=== PATIENT | female | born 1955 | race Hispanic/Latino ===

== ENCOUNTER 2019-04-27 21:16 | Inpatient (IN) | payer MEDICARE ==
[~2019-04-27 21:16] MED LIST: Iopamidol-370 76% 500 ML 1 ML ONE
[2019-04-27] MEDS ORDERED: Rocuronium Bromide 10 MG/ML (10ML VIAL) ONE (21:20)
--- NOTE | 2019-04-27 21:41 | RAD ---
Chest one view HISTORY: Chest pain. FINDINGS: No comparison. Cardiac silhouette is magnified and partially secured by dense bilateral inf iltrates. Pulmonary vasculature is engorged. Patient is slightly rotated rightward. Tip of an endotracheal catheter overlies the thoracic inlet. Nasogastric tube descends to the stomach . No evidence of pneumothorax. IMPRESSION: Endotracheal catheter is in good radiographic position. Pulmonary edema. Atherosclerosis.
[2019-04-27 21:56] LABS: Base Excess-Venous -5.1 mmol/L (-2.0 to 3.0); CO2 Tension (PvCO2) 63.5 mmHg (40.0-50.0); Calcium, Ionized 0.88 mmol/L (See Comments:); Chloride 95 mmol/L (98-107); Hemoglobin - Calc 11.9 g/dL (12.0-16.0); Potassium 4.6 mmol/L (3.5-5.1); Sodium 133 mmol/L (138-145); T. Carbon Dioxide 25.9 mmol/L (22.0-28.0); vO2 Saturation-calc 97.4 % (60.0-85.0)
[2019-04-27] MEDS ORDERED: Furosemide 40 MG/4 ML VIAL ONE (22:05)
[2019-04-27 22:06] LABS: Actual Bicarbonate (HCO3a) 22.1 mEq/L (22-28); Analyzer IN Cardio ER; CO2 Tension 39.9 mmHg (35.0-45.0); Calcium, Ionized 0.99 mmol/L (1.12-1.30); Carboxyhemoglobin (COHb) 0.3 gm% (0.0-3.0); O2 Tension (PaO2) 86.1 mmHg (> 80.0); Potassium - ABG Lab 3.94 mmol/L (3.70-5.30); pH, Arterial 7.36 (7.35-7.45)
--- NOTE | 2019-04-27 22:08 | CT ---
CT arteriogram chest with IV contrast and 3-D imaging HISTORY: Dyspnea. FINDINGS: There is suboptimal opacification of the pulmonary arteries. No central filling defects dolly dent. No secondary findings of significant pulmonary embolus. Prominent calcification in the arterial structures. The left common carotid artery is very small and not definitely opacified. 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 There is compensatory enlargement of the right carotid artery. Endotracheal catheter and nasogastric tube are in place. Small amount of bilateral pleural fluid. Consolidation at the lung bases, greater on the right than the left. Patchy areas of parenchymal infi ltrate throughout each lobe. Retraction, scarring, and dystrophic calcification in the left upper lobe. Reactive appearing lymph nodes throughout the mediastinum. No evidence of pneumothorax. IMPRESSION: No CT evidence of pulmonary embolus. Multifocal infiltrates involving primarily the lower lobes. Component of acute inflammation/infection is a possibility. Consider multifocal pneumonia. In addition, there is evidence of chronic recurrent inflammatory processes of the lungs, including sc arring and calcification of the left upper lobe. Small amount of bilateral pleural fluid. Atherosclerosis.
[2019-04-27 22:09] LABS: ALT (SGPT) 8 U/L (8-55); AST (SGOT) 20 U/L (5-34); Albumin 3.9 g/dL (3.4-4.8); Alkaline Phosphatase 80 U/L (40-110); Anion Gap 18 mmol/L (10-20); BUN (Urea Nitrogen) 16 mg/dL (9.8-20.1); Bilirubin, Total 0.4 mg/dL (0.2-1.2); CK (CPK) 91 U/L (29-168); Calc. Creatinine Clearance 0 mL/min (70-130); Calcium 7.4 mg/dL (7.8-10.44); Carbon Dioxide 24 mmol/L (23-31); Chloride 96 mmol/L (98-107); Estimated GFR-MDRD 34; Globulin 3.4 g/dL (2.4-3.5); Glucose 333 mg/dL (80-115); Potassium 4.4 mmol/L (3.5-5.1); Protein, Total 7.3 g/dL (6.0-8.3); Sodium 134 mmol/L (136-145)
[2019-04-27 22:09] LABS: Bacteria/HPF None Seen HPF (None Seen); Bilirubin Negative (Negative); Blood, Urine Trace (Negative); Clarity Turbid (Clear); Glucose, Urine (Dipstick) Normal (Negative); Leukocyte Negative Leu/uL (Negative); Nitrite Negative (Negative); Protein, Urine (Dipstick) 30 mg/dL (Neg-Trace); RBC/HPF 0-3 HPF (0-3); Squamous Epithelial 0-3 HPF (0-3); Urobilinogen Normal mg/dL (Less than 2); WBC/HPF 0-3 HPF (0-3)
[2019-04-27 22:10] LABS: ALV-art Gradient 291.825 (0-20); Puncture Site LRA
[2019-04-27] MEDS ORDERED: Propofol 1,000 MG/100 ML VIAL IV ONE (22:11)
[2019-04-27 22:25] LABS: Band 6 % (5-11); Eosinophils 3 % (0-10); Hemoglobin 10.6 g/dL (12.0-16.0); Lymphocytes 37 % (21-51); MDiff Complete? YES; Mean Corpuscular HGB CONC 33.3 g/dL (32.0-36.0); Mean Corpuscular Hemoglobin 30.9 pg (27.0-31.0); Mean Corpuscular Volume 92.9 fL (78.0-98.0); Mean Platelet Volume 8.2 fL (7.4-10.4); Monocytes 9 % (0-10); Neutrophil 45 % (42-75); Platelet Count 322 thou/uL (130-400); RBC Distribution Width 11.3 % (11.5-14.5); Red Blood Cell (RBC) Count 3.42 mill/uL (4.20-5.40); White Blood Cell (WBC) Count 16.7 thou/uL (4.8-10.8)
[2019-04-27 22:31] LABS: CKMB 0.8 ng/mL (0-6.6)
[2019-04-27] MEDS ORDERED: Piperacillin/Tazobactam 4.5 GM VIAL ONE (23:36)
[2019-04-28] MEDS ORDERED: Acetaminophen 325 MG TAB PO PRN (00:15)
[2019-04-28] MEDS ORDERED: HYDROcodone/Acetaminophen 5/325 mg Tablet PO PRN (00:15)
[2019-04-28] MEDS ORDERED: Bisacodyl 10 MG SUPP PR PRN (00:15)
[2019-04-28] MEDS ORDERED: Ondansetron PF 4 MG/2 ML Vial IVP PRN ×2 (00:15→00:31)
[2019-04-28] MEDS ORDERED: Bisacodyl 5 MG TAB PO PRN (00:15)
[2019-04-28] MEDS ORDERED: Morphine 2 MG/ML SYRINGE SLOW IVP PRN (00:31)
[2019-04-28] MEDS ORDERED: hydrALAZINE 20 MG/ML VIAL SLOW IVP PRN (00:31)
--- NOTE | 2019-04-28 00:33 | PDOC.HHP ---
Hospitalist HPI - History of Present Illness Altered mental status History of Present Illness: Patient is a 64 year old female with PMH diastolic CHF who presented to ED for AMS, cough, shortness of breath. She continued to become more lethargic to the point of being unresponsive in ED and was intubated for airway protection. Family at bedside, history comes from them and chart review. Patient was reportedly doing well until today, when she developed a cough and shortness of breath during shower. Per family she had been compliant with medications at home , and did not complain of anything until today. They found her on cough later diaphoretic and short of breath and went to ED. In ambulance, developed cyanosis and was not moving air well, improved initally with bag mask before needing to be intubated. Reportedly had similar issue earlier this month and required intubation then as well, this was not at this facility. In ED, CTA performed with no PE but with signs of multifocal pneumonia as well as chronic scarring process in lungs as well. Only reported PMH is HLD and DM. EKG in ED without acute ST findings but with prolongued QTc of 513. I discussed with Dr Dueñas who will follow with us in AM. Hospitalist ROS - Review of Systems ROS unobtainable: due to endotracheal tube Hospitalist History - Past Medical History Other Medical History: HLD DM - Past Surgical History Other Surgical History: unable to obtain due to intubated status - Family History Other Family History: unable to obtain due to intubated status - Social History Other Social History: unable to obtain due to intubated status - Exam General - other findings: intubated sedated Eye: PERRL ENT: normocephalic atraumatic, moist mucosa Neck: supple, no JVD Heart: RRR, no murmur, no gallops, no rubs Respiratory: CTAB Respiratory - other findings: prolongued exp phase Gastrointestinal: soft, non-tender, non-distended, normal bowel sounds Extremities: no cyanosis, no clubbing, no edema Skin: no lesions, no rashes Neurological - other findings: sedated unable to evaluate rass -2 Psychiatric - other findings: unable to eval Hospitalist Results - Labs Result Diagrams: 04/28/19 03:32 04/28/19 03:32 Lab results: WBC 16.7 thou/uL (4.8-10.8) H 04/27/19 21:32 Hgb 10.6 g/dL (12.0-16.0) L 04/27/19 21:32 Hct 31.8 % (36.0-47.0) L 04/27/19 21:32 MCV 92.9 fL (78.0-98.0) 04/27/19 21:32 Plt Count 322 thou/uL (130-400) 04/27/19 21:32 Band Neuts % (Manual) 6 % (5-11) 04/27/19 21:32 ABG pH 7.36 (7.35-7.45) 04/27/19 21:56 ABG pCO2 39.9 mmHg (35.0-45.0) 04/27/19 21:56 ABG pO2 86.1 mmHg (> 80.0) H 04/27/19 21:56 VBG pCO2 63.5 mmHg (40.0-50.0) H* 04/27/19 21:39 VBG pO2 120.8 mmHg (35.0-45.0) H 04/27/19 21:39 Sodium 134 mmol/L (136-145) L 04/27/19 21:32 Potassium 4.4 mmol/L (3.5-5.1) 04/27/19 21:32 Chloride 96 mmol/L (98-107) L 04/27/19 21:32 Carbon Dioxide 24 mmol/L (23-31) 04/27/19 21:32 BUN 16 mg/dL (9.8-20.1) 04/27/19 21:32 Creatinine 1.52 mg/dL (0.6-1.1) H 04/27/19 21:32 Glucose 333 mg/dL (80-115) H 04/27/19 21:32 Lactic Acid 2.6 mmol/L (0.5-2.2) H 04/27/19 22:50 Calcium 7.4 mg/dL (7.8-10.44) L 04/27/19 21:32 Total Bilirubin 0.4 mg/dL (0.2-1.2) 04/27/19 21:32 AST 20 U/L (5-34) 04/27/19 21:32 ALT 8 U/L (8-55) 04/27/19 21:32 Alkaline Phosphatase 80 U/L (40-110) 04/27/19 21:32 Creatine Kinase 91 U/L (29-168) 04/27/19 21:32 CK-MB (CK-2) 0.8 ng/mL (0-6.6) 04/27/19 21:32 Troponin I 0.114 ng/mL (< 0.028) H 04/27/19 21:32 B-Natriuretic Peptide 643.1 pg/mL (0-100) H 04/27/19 21:32 Serum Total Protein 7.3 g/dL (6.0-8.3) 04/27/19 21:32 Albumin 3.9 g/dL (3.4-4.8) 04/27/19 21:32 Urine Ketones Negative mg/dL (Negative) 04/27/19 21:37 Urine Blood Trace (Negative) A 04/27/19 21:37 Urine Nitrite Negative (Negative) 04/27/19 21:37 Ur Leukocyte Esterase Negative Waqar/uL (Negative) 04/27/19 21:37 Urine RBC 0-3 HPF (0-3) 04/27/19 21:37 Urine WBC 0-3 HPF (0-3) 04/27/19 21:37 Ur Squamous Epith Cells 0-3 HPF (0-3) 04/27/19 21:37 Urine Bacteria None Seen HPF (None Seen) 04/27/19 21:37 Hospitalist H&P A/P - Plan Plan: Latha is a 64 year old female with PMH above admitted for: # acute hypoxic and hypercapneic respiratory failure - much of history is incomplete still, appears to have chronic lung disease on CTA as well as new pneumonia, discussed with Dr Dueñas will continue on ventilator and treat empirically for COPD flare as well as for multifocal pneumonia seen on imaging - admit to ICU - consult pulmonary, cardiology - vanc/zosyn - follow all cultures, repeat lactic acid ordered - steroids, nebs ordered as well # prolongued QTc - follow magnesium level once resulted, ordered empiric Mg sulfate 3g once # elevated troponin - likely due to hypoxic event, consult cardiology and trend troponin # sepsis - secondary to pneumonia, treat as above # multifocal pneumonia - treat as above # DM - start SSI, ordered A1C with AM labs # hyponatremia - mild, trend, diurese with lasix once Code: unable to ask, presume full
[2019-04-28] MEDS ORDERED: Propofol 1,000 MG/100 ML VIAL IV PRN (01:09)
[2019-04-28] MEDS ORDERED: Propofol BOLUS 1,000 MG/100 ML VIAL IV PRN (01:09)
[2019-04-28] MEDS ORDERED: Bacteriostatic Water 30 ML VIAL FS PRN (01:12)
[2019-04-28 01:33] LABS: Troponin I 0.111 ng/mL (< 0.028)
[2019-04-28 01:57] LABS: Lactic Acid 3.2 mmol/L (0.5-2.2)
[2019-04-28 02:26] VITALS: BMI 29.9
[2019-04-28] MEDS ORDERED: Dextrose 5% in Water 1,000 ML IV PRN (03:19)
[2019-04-28] MEDS ORDERED: Dextrose 50% Abboject 50 ML SYRINGE SLOW IVP PRN (03:19)
[2019-04-28 03:46] LABS: #Lymphocytes 1.2 thou/uL (1.20-3.40); #Monocytes 0.3 thou/uL (0.11-0.59); %Basophils 0.1 % (0.0-1.0); %Eosinophils 0.1 % (0.0-10.0); %Lymphocytes 9.3 % (21.0-51.0); %Monocytes 2.1 % (0.0-10.0); %Neutrophils 88.4 % (42.0-75.0); Hemoglobin 10.3 g/dL (12.0-16.0); Mean Corpuscular HGB CONC 34.5 g/dL (32.0-36.0); Mean Corpuscular Hemoglobin 31.4 pg (27.0-31.0); Mean Platelet Volume 8.2 fL (7.4-10.4); Platelet Count 254 thou/uL (130-400); RBC Distribution Width 11.3 % (11.5-14.5); Red Blood Cell (RBC) Count 3.26 mill/uL (4.20-5.40); White Blood Cell (WBC) Count 12.4 thou/uL (4.8-10.8)
[2019-04-28 04:11] LABS: Anion Gap 18 mmol/L (10-20); BUN (Urea Nitrogen) 19 mg/dL (9.8-20.1); Calc. Creatinine Clearance 42 mL/min (70-130); Calcium 7.7 mg/dL (7.8-10.44); Carbon Dioxide 25 mmol/L (23-31); Chloride 95 mmol/L (98-107); Estimated GFR-MDRD 36; Glucose 231 mg/dL (80-115); Potassium 3.6 mmol/L (3.5-5.1); Sodium 134 mmol/L (136-145)
[2019-04-28] MEDS: methylPREDNISolone Sod Succ 40 MG VIAL IVP SCH ×2 (05:13→11:25)
[2019-04-28] MEDS: Piperacillin/Tazobactam 3.375 GM in Sodium Chloride 0.9% 100 ML IVPB SCH ×4 (05:13→23:09)
[2019-04-28] MEDS: HumaLOG 300 UNITS/3 ML VIAL SC PRN ×4 (05:17→20:25)
[2019-04-28] MEDS ORDERED: Furosemide 40 MG/4 ML VIAL SLOW IVP SCH (06:30)
[2019-04-28] MEDS ORDERED: Magnesium Sulfate 3 GM in Sodium Chloride 0.9% 100 ML IVPB SCH (06:30)
[2019-04-28 07:08] LABS: Lactic Acid 3.6 mmol/L (0.5-2.2)
[2019-04-28 07:17] LABS: Troponin I 0.233 ng/mL (< 0.028)
[2019-04-28] MEDS ORDERED: FLU VACC TS2019-20(65YR UP)/PF 180 MCG/0.5 ML SYRINGE IM ONE (09:00)
[2019-04-28] MEDS ORDERED: Vancomycin HCl 1 GM in Premix Bag 1 BAG IVPB SCH (09:00)
[2019-04-28] MEDS: Enoxaparin Sodium 30 MG/0.3 ML SYRINGE SC SCH (09:43)
[2019-04-28] MEDS ORDERED: Magnesium Sulfate 2 GM in Sodium Chloride 0.9% 100 ML IVPB SCH (12:45)
[2019-04-28 14:05] LABS: Troponin I 0.288 ng/mL (< 0.028)
[2019-04-28] MEDS ORDERED: Potassium Phosphate 15 MMOL in Sodium Chloride 0.9% 250 ML 250 ML IVPB SCH (14:30)
[2019-04-28] MEDS ORDERED: Calcium Gluc 4.6 MEQ/10 ML (100 MG/ML) SLOW IVP SCH (14:30)
[2019-04-28] MEDS: Calcium Gluconate 4.6 MEQ in Sodium Chloride 0.9% 100 ML IVPB SCH ×2 (15:22→19:14)
--- NOTE | 2019-04-28 17:01 | CON ---
DATE OF CONSULTATION: 04/28/2019 SERVICE: Pulmonary Medicine. REASON FOR CONSULT: Respiratory failure. HISTORY OF PRESENT ILLNESS: The patient is a 64-year-old female with past medical history significant for recent operation. During that hospital stay, she had significant volume overload. Ultimately, she was discharged from the hospital. She developed increasing respiratory failure and returned with difficulty breathing. She was found to be desaturated. Because of this, endotracheal tube was placed after she failed noninvasive therapy. She denies any current fevers, chills, nausea, vomiting, or diarrhea. Otherwise, there has been no change to her condition. On mechanical ventilation, her oxygen requirements have dramatically improved overnight. She is given multiple dose of Lasix and responded beautifully. There has been no issues with her gut. She has not had any complaint any nausea , vomiting, or diarrhea here recently. She is having bowel movements. PAST MEDICAL HISTORY: 1. Type 2 diabetes mellitus. 2. Dyslipidemia. PAST SURGICAL HISTORY: Recent abdominal surgery. FAMILY HISTORY: Noncontributory. SOCIAL HISTORY: Negative for current alcohol, tobacco, or illicit drug use. She has no exposure to chemicals, dust, asbestos, or tuberculosis. REVIEW OF SYSTEMS: This cannot be obtained as the patient is currently intubated and sedated. PHYSICAL EXAMINATION: VITAL SIGNS: Afebrile, pulse 103, blood pressure 150/59, respirations 16, and saturation 98%, currently on 31% FiO2 and a PEEP of 5. GENERAL: The patient is awake and alert, in no apparent distress. She is mechanical ventilator, not able to speak. HEENT: Normocephalic and atraumatic. Sclerae white. Conjunctivae pink. Oral mucosa is moist without lesions. LUNGS: Decent air entry. No prolonged expiratory phase or wheezing is present. There is some minimal crackles present. HEART: Normal rate. Regular. ABDOMEN: Soft, nontender, and nondistended. All incision sites are clean, dry , and intact. Bowel sounds are present. MUSCULOSKELETAL: No cyanosis or clubbing. There is no pitting at this point. NEUROLOGIC: Grossly nonfocal. LABORATORY DATA: WBC 12.4, hemoglobin 10.3, and platelets 254,000. Lactate 3.6 , which is gently uptrending, magnesium 1.4. Troponin is up trending to 0.288. Blood sugar ranges from 210 to 230. Creatinine 1.46 and gently downtrending, BUN 19. Basic metabolic profile is otherwise unremarkable. Liver function studies are unremarkable. BNP 643. Urinalysis is unremarkable. Ionized calcium 0.99. IMAGING DATA: CT of the chest demonstrates endotracheal tube is in position. There is diffuse ground-glass opacification, interstitial fullness throughout bilateral lung real. There are also small bilateral pleural effusions. Overt consolidating lesions are present in the right lower lobe. There is dilated left atrium, and a small right ventricle. Left ventricle appears to be generous in size. All of these are consistent with volume overload, though an infiltrate in the right base is also likely. ASSESSMENT: 1. Acute hypoxic respiratory failure. 2. Healthcare-associated pneumonia. 3. Acute on chronic diastolic heart failure, suspected. DISCUSSION AND PLAN: The patient has diuresed beautifully. At this point, her oxygen requirements have dramatically improved. As such, she can be considered for extubation if she passes a spontaneous breathing trial. Antibiotics directed at lung related conditions will be continued for the next 24 to 48 hours. I will replace the potassium, magnesium, phosphorus, and calcium. If she is doing well from a respiratory standpoint into the afternoon, she can be considered for transition to the telemetry unit. Critical care time: 30 minutes. Job ID: [id number] MTDD
[2019-04-28] MEDS ORDERED: Furosemide 100 MG/10 ML VIAL SLOW IVP SCH (18:15)
[2019-04-28] MEDS ORDERED: Potassium Chloride 40 MEQ in Sodium Chloride 0.9% 250 ML 250 ML IVPB SCH (18:30)
--- NOTE | 2019-04-28 19:33 | CON ---
DATE OF CONSULTATION: It should be noted the patient has multiple medical record numbers. HISTORY OF PRESENT ILLNESS: Ms. Mike Talley is a pleasant patient with a history of diastolic congestive heart failure. She recently underwent abdominal surgery and in the postoperative period, developed severe heart failure with pulmonary edema. She was stabilized and ultimately underwent cardiac catheterization, which showed mild nonobstructive atherosclerotic heart disease, but increase in diastolic pressures despite intravenous diuretics. It is all diastolic heart failure. It is also noted she had some narrowing in the descending thoracic aorta, but that did not be clinically relevant finding. The patient was admitted to the hospital last night with difficulty breathing and pulmonary edema. She has also received antibiotics. No chest pain or pressure. MEDICATIONS: Please see nurse's notes that include; 1. Crestor. 2. Carvedilol. 3. Amlodipine. 4. Furosemide. 5. Losartan. 6. Glipizide. REVIEW OF SYSTEMS: GENERAL: No significant weight gain or loss. VISION: No changes. HEARING: No changes. PULMONARY: Positive for shortness of breath. CARDIAC: Positive for shortness of breath. GASTROINTESTINAL: No nausea, vomiting, or diarrhea. SKIN: No rashes. NEUROLOGIC: No unilateral weakness or numbness. PSYCHIATRIC: No unusual depression. PHYSICAL EXAMINATION: GENERAL: This is a pleasant 64-year-old woman. She was transiently intubated, now she is extubated. NECK: Neck veins normal. LUNGS: Noted for bibasilar rales. CARDIAC: Normal S1 and normal S2. ABDOMEN: Soft and nontender. EXTREMITIES: No clubbing. No cyanosis. There is no edema. SKIN: Warm and dry. LABORATORY DATA: Initial chest x-ray showed pulmonary edema and congestive heart failure. Troponin level 0.288, compatible type 2 myocardial infarction demand ischemia. CONCLUSION: 1. Recurrent congestive heart failure diastolic, acute on chronic resulting in respiratory failure. 2. Mild nonobstructive coronary artery disease. 3. History of hypertension. PLAN: 1. Continue intravenous diuretics. 2. Long-term prognosis guarded in this patient, who redeveloped severe diastolic heart failure despite medication. We will continue to follow with you. Job ID: [id number]
[2019-04-28] MEDS ORDERED: Vancomycin HCl 750 MG in Sodium Chloride 0.9% 250 ML 250 ML IVPB SCH (22:00)
[2019-04-28] MEDS: cloNIDine 0.1 MG TAB PO PRN (23:24)
[2019-04-29 04:56] LABS: #Lymphocytes 1.1 thou/uL (1.20-3.40); #Monocytes 0.6 thou/uL (0.11-0.59); #Neutrophils 14.2 thou/uL (1.40-6.50); %Basophils 0.1 % (0.0-1.0); %Lymphocytes 7.1 % (21.0-51.0); %Neutrophils 88.8 % (42.0-75.0); Hemoglobin 9.9 g/dL (12.0-16.0); Mean Corpuscular HGB CONC 33.8 g/dL (32.0-36.0); Mean Corpuscular Hemoglobin 30.9 pg (27.0-31.0); Mean Corpuscular Volume 91.6 fL (78.0-98.0); Mean Platelet Volume 8.3 fL (7.4-10.4); Platelet Count 269 thou/uL (130-400); RBC Distribution Width 11.5 % (11.5-14.5); Red Blood Cell (RBC) Count 3.21 mill/uL (4.20-5.40)
[2019-04-29] MEDS: Piperacillin/Tazobactam 3.375 GM in Sodium Chloride 0.9% 100 ML IVPB SCH ×4 (05:03→23:01)
[2019-04-29 05:13] LABS: Phosphorus 5.1 mg/dL (2.3-4.7)
[2019-04-29 05:15] LABS: Anion Gap 14 mmol/L (10-20); BUN (Urea Nitrogen) 17 mg/dL (9.8-20.1); Calc. Creatinine Clearance 45 mL/min (70-130); Carbon Dioxide 32 mmol/L (23-31); Chloride 96 mmol/L (98-107); Estimated GFR-MDRD 38; Glucose 197 mg/dL (80-115); Magnesium 1.7 mg/dL (1.6-2.6); Sodium 139 mmol/L (136-145)
[2019-04-29] MEDS: HumaLOG 300 UNITS/3 ML VIAL SC PRN ×5 (05:36→20:15)
[2019-04-29] MEDS: Potassium Chloride 20 MEQ in Premix Bag 1 BAG IVPB SCH ×2 (08:48→10:56)
--- NOTE | 2019-04-29 08:48 | PRG ---
DATE OF SERVICE: 04/29/2019 SUBJECTIVE: Ms. Talley is doing better. Her breathing is improved. OBJECTIVE: VITAL SIGNS: Her blood pressure 132/57; pulse 80, it is regular. LUNGS: Clear. CARDIAC: Normal S1. Normal S2. ABDOMEN: Soft and nontender. EXTREMITIES: No edema. PERTINENT LABORATORY DATA: Hemoglobin is 9.9. Potassium is low at 3.0 despite intravenous potassium. Creatinine is 1.38. ASSESSMENT: 1. Diastolic heart failure, improved. 2. Hypokalemia. 3. Voa-GQ-vftiexgbs infarction related to demand ischemia. 4. Hypertension. PLAN: 1. Replete potassium. 2. ? discontinue or reduce methylprednisolone. 3. Okay with me to go to telemetry or IMCU. Job ID: [id number]
[2019-04-29] MEDS: predniSONE 20 MG TAB PO SCH (08:49)
[2019-04-29] MEDS: Enoxaparin Sodium 30 MG/0.3 ML SYRINGE SC SCH (08:50)
[2019-04-29] MEDS ORDERED: Magnesium Sulfate 2 GM in Sodium Chloride 0.9% 100 ML IVPB SCH (12:45)
[2019-04-29] MEDS ORDERED: Magnesium 2 GM/50 ML 2 GM in Premix Bag 1 BAG IVPB SCH (13:00)
--- NOTE | 2019-04-29 13:02 | PRG ---
DATE OF SERVICE: 04/29/2019 SERVICE: Pulmonary Medicine. INTERVAL HISTORY: The patient is breathing much better today. No complaints of chest discomfort, nausea, vomiting, fevers, or chills. Otherwise, there has been no interval change to her condition. PHYSICAL EXAMINATION: VITAL SIGNS: Afebrile, pulse 97, blood pressure 157/61, respirations 21, and saturation 99% on 2 L nasal cannula. GENERAL: The patient is awake and alert, in no apparent distress. LUNGS: Wonderful air entry. Dependent crackles are minimal. No prolonged expiratory phase or wheezing is appreciated. HEART: Normal rate, regular. ABDOMEN: Soft, nontender, and nondistended. Bowel sounds positive. MUSCULOSKELETAL: No cyanosis or clubbing. Minimal pitting is present in bilateral lower extremities. NEUROLOGIC: Grossly nonfocal. LABORATORY DATA: WBC 16.0, hemoglobin 9.9, and platelets 269,000. Creatinine 1.38 and gently downtrending. Basic metabolic profile is otherwise unremarkable. Her bicarb has jumped to 32, however. Potassium 3.0. Phosphorus 5.1, magnesium 1.7. Urine is unremarkable. Microbiology including respiratory culture, influenza A and B, blood culture x2 are unremarkable. ASSESSMENT: 1. Acute hypoxic respiratory failure. 2. Healthcare-associated pneumonia. 3. Acute on chronic diastolic heart failure. DISCUSSION AND PLAN: The patient is diuresed very well. We will continue to diurese her down to euvolemia, which she is fast approaching. Potassium and magnesium to be replaced today. She can be considered for transition to the telemetry unit at this point. Duran catheter to be removed. Job ID: [id number]
[2019-04-29] MEDS ORDERED: Furosemide 20 MG/2 ML VIAL SLOW IVP SCH (14:00)
[2019-04-29] MEDS: Furosemide 20 MG/2 ML VIAL SLOW IVP SCH (14:40)
[2019-04-29] MEDS ORDERED: Potassium Chloride 20 MEQ TAB PO SCH (17:00)
[2019-04-29] MEDS: cloNIDine 0.1 MG TAB PO PRN (20:15)
[2019-04-29] MEDS ORDERED: HumaLOG 300 UNITS/3 ML VIAL SC PRN (22:50)
--- NOTE | 2019-04-29 22:51 | PDOC.HOSPP ---
- Subjective Encounter Date: 04/29/19 Encounter Time: 10:45 Subjective: Patient seen and examined for resp failure. SOB improving. No CP/palpitations. No new complaints. No overnight events - Objective Vital Signs & Weight: Vital Signs (12 hours) Temp Pulse Resp BP Pulse Ox 04/29/19 20:15 157/62 H 04/29/19 19:21 100 04/29/19 19:11 98 04/29/19 19:10 98 04/29/19 19:00 98.0 F 04/29/19 16:00 98.3 F 04/29/19 13:50 97 14 95 04/29/19 12:00 98.4 F Weight Weight 153 lb 3.54 oz Most Recent Monitor Data Heart Rate from ECG 103 NIBP 157/62 NIBP BP-Mean 93 Respiration from ECG 18 SpO2 98 I&O: 04/28/19 04/29/19 04/30/19 06:59 06:59 06:59 Intake Total 42.5 1629 286 Output Total 1045 3265 1365 [facility] -1002.5 -1636 -1079 Result Diagrams: 04/30/19 03:27 04/30/19 03:27 Additional Labs: Accuchecks 04/29/19 04/29/19 04/29/19 20:17 17:36 11:48 POC Glucose 282 H 262 H 286 H 04/29/19 08:52 POC Glucose 185 H EKG Reviewed by me: Yes (Tele SR) Hospitalist ROS - Review of Systems Respiratory: denies: cough, dry, shortness of breath, hemoptysis, SOB with excertion, pleuritic pain, sputum, wheezing, other Cardiovascular: reports: edema. denies: chest pain, palpitations, orthopnea, paroxysmal noc. dyspnea, light headedness, other Gastrointestinal: denies: nausea, vomiting, abdominal pain, diarrhea, constipation, melena, hematochezia, other - Medication Medications: Active Medications Generic Name Dose Route Start Last Admin Trade Name Freq PRN Reason Stop Dose Admin Albuterol/Ipratropium 3 ml 04/28/19 01:00 04/29/19 19:10 Duoneb NEB 3 ml [id number] LENNY Administration Clonidine 0.1 mg 04/28/19 00:31 04/29/19 20:15 Catapres PO 0.1 mg Q4H PRN Administration SBP > 160, use second Enoxaparin Sodium 30 mg 04/28/19 09:00 04/29/19 08:50 Lovenox SC 30 mg 0900 LENNY Administration Furosemide 40 mg 04/29/19 14:00 04/29/19 14:40 Lasix SLOW IVP 40 mg 0600,1400 LENNY Administration Piperacillin Sod/Tazobactam 100 mls @ 200 mls/hr 04/28/19 06:00 04/29/19 17: 27 Sod 3.375 gm/ Sodium Chloride IVPB 100 mls Q6HR LENNY Administration Prednisone 40 mg 04/29/19 08:00 04/29/19 08:49 Prednisone PO 05/01/19 08:01 40 mg QAM-WM LENNY Administration - Exam General Appearance: NAD Heart: RRR, no gallops, no rubs, normal peripheral pulses Respiratory: no wheezes, normal chest expansion, rales, rhonchi Gastrointestinal: soft, non-tender, non-distended, normal bowel sounds Extremities: no cyanosis Extremities - other findings: edema Neurological: no new deficit Musculoskeletal: normal tone, normal strength, generalized weakness Psychiatric: normal affect, normal behavior, A&O x 3 Hosp A/P - Plan DVT proph w/SCDs Acute hypoxic/hypercapnic resp failure Acute on chronic diastolic HF (POA) Moderate CAD DM2 HTN HLD PLAN: Cont diuresis Cont hydralazine/Coreg Change sliding scale to moderate Restart Glipizide Transfer to Tele AM labs Pt also has medical record - [id number]
[2019-04-30 03:54] LABS: #Basophils 0.1 thou/uL (0.0-0.2); #Lymphocytes 1.2 thou/uL (1.20-3.40); #Monocytes 1.3 thou/uL (0.11-0.59); #Neutrophils 13.5 thou/uL (1.40-6.50); %Basophils 0.5 % (0.0-1.0); %Eosinophils 0.1 % (0.0-10.0); %Lymphocytes 7.5 % (21.0-51.0); Hemoglobin 9.8 g/dL (12.0-16.0); Mean Corpuscular HGB CONC 34.3 g/dL (32.0-36.0); Mean Corpuscular Hemoglobin 31.6 pg (27.0-31.0); Mean Corpuscular Volume 92.1 fL (78.0-98.0); Mean Platelet Volume 8.2 fL (7.4-10.4); Platelet Count 270 thou/uL (130-400); RBC Distribution Width 11.3 % (11.5-14.5); White Blood Cell (WBC) Count 16.1 thou/uL (4.8-10.8)
[2019-04-30 04:09] LABS: Anion Gap 13 mmol/L (10-20); BUN (Urea Nitrogen) 24 mg/dL (9.8-20.1); Calc. Creatinine Clearance 47 mL/min (70-130); Carbon Dioxide 33 mmol/L (23-31); Chloride 96 mmol/L (98-107); Estimated GFR-MDRD 41; Glucose 174 mg/dL (80-115); Potassium 3.6 mmol/L (3.5-5.1); Sodium 138 mmol/L (136-145)
[2019-04-30] MEDS: Piperacillin/Tazobactam 3.375 GM in Sodium Chloride 0.9% 100 ML IVPB SCH ×2 (06:16→12:26)
[2019-04-30] MEDS: Furosemide 20 MG/2 ML VIAL SLOW IVP SCH ×2 (06:17→15:13)
[2019-04-30] MEDS ORDERED: Carvedilol 3.125 MG TAB PO SCH (08:15)
[2019-04-30] MEDS ORDERED: Potassium Chloride 20 MEQ TAB PO SCH (08:30)
[2019-04-30] MEDS: glipiZIDE 5 MG TAB PO SCH ×2 (08:41→17:25)
[2019-04-30] MEDS: hydrALAZINE 25 MG TAB PO SCH ×3 (08:41→21:52)
[2019-04-30] MEDS: Enoxaparin Sodium 30 MG/0.3 ML SYRINGE SC SCH (08:42)
[2019-04-30] MEDS: Carvedilol 3.125 MG TAB PO SCH ×2 (08:42→17:25)
[2019-04-30] MEDS: predniSONE 20 MG TAB PO SCH (08:42)
[2019-04-30] MEDS: HumaLOG 300 UNITS/3 ML VIAL SC PRN ×4 (08:44→21:56)
--- NOTE | 2019-04-30 09:16 | PRG ---
DATE OF SERVICE: 04/30/2019 SUBJECTIVE: Ms. Mckeon is doing better today. She is breathing well. No complaints. OBJECTIVE: VITAL SIGNS: Blood pressures are variable, the most recent is 157/67, with a pulse of 90. LUNGS: Clear. CARDIAC: Normal S1 and normal S2. ABDOMEN: Soft and nontender. EXTREMITIES: No edema. PERTINENT LABORATORY DATA: Creatinine continues to improve, it is down to 1.3. ASSESSMENT: 1. Diastolic congestive heart failure. 2. Hypomagnesemia, being corrected. 3. Hypokalemia, being corrected. 4. It appears her renal function worsened on the angiotensin-receptor blockers. PLAN: 1. Resume carvedilol. 2. Substitute hydralazine for losartan. 3. Reduce furosemide to oral furosemide. 4. Replete potassium. 5. Continue to keep in the hospital a day or 2 more. She has come back in with severe pulmonary edema after recent admission, high risk of readmission. 6. Probably stop antibiotics soon. 7. This problem appears to be predominantly diastolic heart failure. Job ID: [id number]
[2019-04-30] MEDS: Potassium Chloride 20 MEQ TAB PO SCH (17:25)
[2019-04-30] MEDS: Senokot S 8.6-50 MG TAB PO SCH (21:53)
[2019-04-30] MEDS: Amoxicillin/Potassium Clav 875 MG TAB PO SCH (21:53)
--- NOTE | 2019-04-30 22:12 | HP ---
PULMONARY/CRITICAL CARE FOLLOW UP NOTE: SERVICE: Pulmonary Medicine. INTERVAL HISTORY: The patient is doing fine from respiratory standpoint. She is on room air currently. Has no complaints of chest discomfort, nausea, or vomiting. Her appetite is improved. Otherwise, she has essentially returned to her usual state of health and has no specific complaints. PHYSICAL EXAMINATION: VITAL SIGNS: Afebrile, pulse 98, blood pressure 169/72, respirations 22, saturation 97%, currently on 2 L nasal cannula. GENERAL: The patient is awake and alert, in no apparent distress. LUNGS: Decent air entry. Minimal crackles are present in bibasilar region. HEART: Normal rate and regular. ABDOMEN: Soft, nontender, and nondistended. Bowel sounds positive. MUSCULOSKELETAL: No cyanosis or clubbing. There is no pitting in the bilateral lower extremities. NEUROLOGIC: Grossly nonfocal. LABORATORY DATA: WBC 16.1, hemoglobin 9.8, platelets 270,000. Potassium 3.6. Bicarb 33, has bounced upward. Creatinine 1.33, continues to drown trend. Basic metabolic profile is otherwise unremarkable. Urinalysis is unremarkable. Influenza A and B, respiratory culture, and blood culture x2 are all unremarkable. ASSESSMENT: 1. Acute hypoxic respiratory failure, resolved. 2. Ylmgl-uu-iyndecp diastolic heart failure. 3. Healthcare-associated pneumonia. 4. Hypertension. DISCUSSION AND PLAN: The patient is doing fine from respiratory standpoint. At this point, we can convert her antibiotics over to p.o. She will need to complete a 7-day course. I will give her a dose of potassium today. At this point, she is stable for transition out of the ICU to the telemetry unit. When she leaves the ICU, she will have no further requirements for inpatient Pulmonary or Critical Care opinion, and I will sign off. Please call with additional questions or concerns through time. Job ID: [id number] [facility]
[2019-05-01] MEDS: Enoxaparin Sodium 30 MG/0.3 ML SYRINGE SC SCH (08:45)
[2019-05-01] MEDS: Amoxicillin/Potassium Clav 875 MG TAB PO SCH ×2 (08:45→20:26)
[2019-05-01] MEDS: Furosemide 40 MG TAB PO SCH (08:46)
[2019-05-01] MEDS: glipiZIDE 5 MG TAB PO SCH ×2 (08:46→15:50)
[2019-05-01] MEDS: Potassium Chloride 20 MEQ TAB PO SCH ×2 (08:48→15:49)
[2019-05-01] MEDS: hydrALAZINE 25 MG TAB PO SCH ×3 (08:49→20:25)
[2019-05-01] MEDS: Polyethylene Glycol 3350 17 GM Packet PO SCH (08:50)
[2019-05-01] MEDS: Senokot S 8.6-50 MG TAB PO SCH ×2 (08:50→20:25)
[2019-05-01] MEDS: Carvedilol 3.125 MG TAB PO SCH (08:54)
--- NOTE | 2019-05-01 08:56 | PDOC.HOSPP ---
- Subjective Encounter Date: 04/30/19 Encounter Time: 14:00 Subjective: Patient seen and examined for Resp failure. SOB improving. No fever. No other complaints. No overnight events - Objective Vital Signs & Weight: Vital Signs (12 hours) Temp Pulse BP Pulse Ox 05/01/19 08:49 91 169/83 H 05/01/19 07:13 98 05/01/19 04:00 98.2 F 05/01/19 01:44 96 04/30/19 21:52 91 147/65 H Weight Weight 153 lb 3.54 oz Most Recent Monitor Data Heart Rate from ECG 94 NIBP 146/68 NIBP BP-Mean 94 Respiration from ECG 22 SpO2 98 I&O: 04/30/19 05/01/19 05/02/19 06:59 06:59 06:59 Intake Total 536 800 Output Total 1830 3030 Balance -3534 -2530 Result Diagrams: 04/30/19 03:27 04/30/19 03:27 Additional Labs: Accuchecks 05/01/19 04/30/19 04/30/19 06:03 21:59 17:19 POC Glucose 117 H 195 H 234 H 04/30/19 12:26 POC Glucose 237 H EKG Reviewed by me: Yes (Tele SR) Hospitalist ROS - Review of Systems Respiratory: reports: SOB with excertion. denies: cough, dry, shortness of breath, hemoptysis, pleuritic pain, sputum, wheezing, other Cardiovascular: denies: chest pain, palpitations, orthopnea, paroxysmal noc. dyspnea, edema, light headedness, other - Medication Medications: Active Medications Generic Name Dose Route Start Last Admin Trade Name Freq PRN Reason Stop Dose Admin Amoxicillin/Clavulanate Potassium 875 mg 04/30/19 21:00 05/01/19 08:45 Augmentin PO 05/03/19 21:01 875 mg Q12HR LENNY Administration Carvedilol 6.25 mg 04/30/19 08:00 04/30/19 17:25 Coreg PO 6.25 mg BID-WM LENNY Administration Clonidine 0.1 mg 04/28/19 00:31 04/29/19 20:15 Catapres PO 0.1 mg Q4H PRN Administration SBP > 160, use second Enoxaparin Sodium 30 mg 04/28/19 09:00 05/01/19 08:45 Lovenox SC 30 mg 0900 LENNY Administration Furosemide 40 mg 05/01/19 07:30 05/01/19 08:46 Lasix PO 40 mg DAILY-AC LENNY Administration Glipizide 5 mg 04/30/19 07:30 05/01/19 08:46 Glucotrol PO 5 mg BID-AC LENNY Administration Hydralazine HCl 25 mg 04/30/19 09:00 05/01/19 08:49 Apresoline PO 25 mg TID LENNY Administration Insulin Human Lispro 0 units 04/29/19 22:50 04/30/19 21:56 Humalog SC 2 unit .MODERATE SLIDING SC PRN Administration Moderate Correctional Scale Polyethylene Glycol 17 gm 05/01/19 09:00 05/01/19 08:50 Miralax PO Not Given DAILY LENNY Potassium Chloride 20 meq 04/30/19 17:00 05/01/19 08:48 K-Dur PO 20 meq BID-WM LENNY Administration Senna/Docusate Sodium 2 tab 04/30/19 21:00 05/01/19 08:50 Senokot S PO Not Given BID LENNY - Exam General Appearance: NAD Heart: RRR, no gallops Respiratory: rales, rhonchi Gastrointestinal: non-tender, normal bowel sounds Extremities: no cyanosis Hosp A/P - Plan DVT proph w/lovenox, DVT proph w/SCDs Acute hypoxic/hypercapnic resp failure Acute on chronic diastolic HF (POA) HCAP Moderate CAD DM2 HTN HLD PLAN: Cont IV Lasix with Zosyn Cont hydralazine/Coreg/Glipizide Cont sliding scale Await Tele bed AM labs (Pt also has medical record - [id number])
[2019-05-01] MEDS: predniSONE 20 MG TAB PO SCH (09:55)
[2019-05-01] MEDS: HumaLOG 300 UNITS/3 ML VIAL SC PRN ×2 (11:47→15:48)
[2019-05-01] MEDS: Carvedilol 6.25 MG TAB PO SCH (16:19)
--- NOTE | 2019-05-01 22:19 | PDOC.HOSPP ---
- Subjective Encounter Date: 05/01/19 Encounter Time: 13:00 Subjective: Patient seen and examined for CHF. Sitting on chair. SOB improving. No new complaints. No overnight events - Objective Vital Signs & Weight: Vital Signs (12 hours) Temp Pulse BP Pulse Ox 05/01/19 20:25 86 161/67 H 05/01/19 20:00 98.1 F 97 05/01/19 16:19 161/67 H 05/01/19 16:00 98.8 F 05/01/19 15:51 93 161/67 H 05/01/19 11:37 98.9 F Weight Weight 153 lb 3.54 oz Most Recent Monitor Data Heart Rate from ECG 90 NIBP 161/67 NIBP BP-Mean 98 Respiration from ECG 20 SpO2 100 I&O: 04/30/19 05/01/19 05/02/19 06:59 06:59 06:59 Intake Total 301 107 4741 Output Total 1830 3030 1055 Balance -4254 -3920 105 Result Diagrams: 04/30/19 03:27 04/30/19 03:27 Additional Labs: Accuchecks 05/01/19 05/01/19 05/01/19 20:33 15:49 11:46 POC Glucose 285 H 244 H 194 H 05/01/19 06:03 POC Glucose 117 H EKG Reviewed by me: Yes (Tele SR) Hospitalist ROS - Review of Systems Respiratory: denies: cough, dry, shortness of breath, hemoptysis, SOB with excertion, pleuritic pain, sputum, wheezing, other Cardiovascular: denies: chest pain, palpitations, orthopnea, paroxysmal noc. dyspnea, edema, light headedness, other - Medication Medications: Active Medications Generic Name Dose Route Start Last Admin Trade Name Freq PRN Reason Stop Dose Admin Amoxicillin/Clavulanate Potassium 875 mg 04/30/19 21:00 05/01/19 20:26 Augmentin PO 05/03/19 21:01 875 mg Q12HR LENNY Administration Carvedilol 6.25 mg 05/01/19 17:00 05/01/19 16:19 Coreg PO 6.25 mg BID-WM LENNY Administration Clonidine 0.1 mg 04/28/19 00:31 04/29/19 20:15 Catapres PO 0.1 mg Q4H PRN Administration SBP > 160, use second Enoxaparin Sodium 30 mg 04/28/19 09:00 05/01/19 08:45 Lovenox SC 30 mg 09 LENNY Administration Furosemide 40 mg 05/01/19 07:30 05/01/19 08:46 Lasix PO 40 mg DAILY-AC LENNY Administration Glipizide 5 mg 04/30/19 07:30 05/01/19 15:50 Glucotrol PO 5 mg BID-AC LENNY Administration Hydralazine HCl 25 mg 04/30/19 09:00 05/01/19 20:25 Apresoline PO 25 mg TID LENNY Administration Insulin Human Lispro 0 units 04/29/19 22:50 05/01/19 15:48 Humalog SC 4 unit .MODERATE SLIDING SC PRN Administration Moderate Correctional Scale Insulin Human Lispro 0 units 04/29/19 22:50 05/01/19 20:30 Humalog SC 3 unit .BEDTIME SLIDING SC PRN Administration Bedtime Correctional Scale Polyethylene Glycol 17 gm 05/01/19 09:00 05/01/19 08:50 Miralax PO Not Given DAILY LENNY Potassium Chloride 20 meq 04/30/19 17:00 05/01/19 15:49 K-Dur PO 20 meq BID-WM LENNY Administration Senna/Docusate Sodium 2 tab 04/30/19 21:00 05/01/19 20:25 Senokot S PO 2 tab BID LENNY Administration - Exam General Appearance: NAD Neck: supple, no JVD Heart: RRR, no gallops Respiratory: no wheezes, rhonchi Gastrointestinal: soft, non-tender, normal bowel sounds Extremities: no cyanosis Hosp A/P - Plan Acute hypoxic/hypercapnic resp failure Acute on chronic diastolic HF (POA) Moderate CAD DM2 HTN HLD PLAN: 05/01 Cont PO Lasix/hydralazine/Coreg Cont other meds AM labs Await Tele beds Pt also has medical record - [id number]
[2019-05-02 04:00] LABS: #Eosinphils 0.1 thou/uL (0.0-0.7); #Lymphocytes 3.2 thou/uL (1.20-3.40); #Monocytes 1.7 thou/uL (0.11-0.59); %Basophils 0.3 % (0.0-1.0); %Eosinophils 0.4 % (0.0-10.0); %Lymphocytes 22.9 % (21.0-51.0); %Monocytes 12.4 % (0.0-10.0); %Neutrophils 64.1 % (42.0-75.0); Hemoglobin 12.7 g/dL (12.0-16.0); Mean Corpuscular HGB CONC 33.4 g/dL (32.0-36.0); Mean Corpuscular Hemoglobin 30.9 pg (27.0-31.0); Mean Corpuscular Volume 92.5 fL (78.0-98.0); Mean Platelet Volume 8.2 fL (7.4-10.4); Platelet Count 321 thou/uL (130-400); RBC Distribution Width 11.3 % (11.5-14.5); Red Blood Cell (RBC) Count 4.11 mill/uL (4.20-5.40)
[2019-05-02 04:20] LABS: Anion Gap 13 mmol/L (10-20); BUN (Urea Nitrogen) 28 mg/dL (9.8-20.1); Calc. Creatinine Clearance 63 mL/min (70-130); Calcium 9.3 mg/dL (7.8-10.44); Carbon Dioxide 30 mmol/L (23-31); Chloride 99 mmol/L (98-107); Estimated GFR-MDRD 57; Glucose 133 mg/dL (80-115); Magnesium 1.7 mg/dL (1.6-2.6); Potassium 3.9 mmol/L (3.5-5.1); Sodium 138 mmol/L (136-145)
[2019-05-02] MEDS: Senokot S 8.6-50 MG TAB PO SCH ×2 (07:54→20:44)
[2019-05-02] MEDS: Furosemide 40 MG TAB PO SCH (07:54)
[2019-05-02] MEDS: hydrALAZINE 25 MG TAB PO SCH ×3 (07:55→20:44)
[2019-05-02] MEDS: Amoxicillin/Potassium Clav 875 MG TAB PO SCH ×2 (07:55→20:44)
[2019-05-02] MEDS: Carvedilol 6.25 MG TAB PO SCH (07:55)
[2019-05-02] MEDS: Potassium Chloride 20 MEQ TAB PO SCH ×2 (07:55→16:06)
[2019-05-02] MEDS: glipiZIDE 5 MG TAB PO SCH ×2 (07:55→16:07)
[2019-05-02] MEDS: Polyethylene Glycol 3350 17 GM Packet PO SCH (07:56)
[2019-05-02] MEDS: Enoxaparin Sodium 30 MG/0.3 ML SYRINGE SC SCH (07:56)
[2019-05-02] MEDS ORDERED: hydrALAZINE 25 MG TAB PO SCH (10:45)
--- NOTE | 2019-05-02 10:46 | PRG ---
DATE OF SERVICE: 05/02/2019 SUBJECTIVE: Ms. Talley is sitting up in a chair. She feels well, no complaints. OBJECTIVE: VITAL SIGNS: Blood pressure still high 154/75, pulse in the 80s. LUNGS: Clear. CARDIAC: Normal S1, normal S2. ABDOMEN: Soft, nontender. EXTREMITIES: No edema. ASSESSMENT: 1. Congestive heart failure diastolic acute on chronic improving. 2. Hypertension. PLAN: 1. Increase hydralazine. 2. Increase carvedilol. 3. Possibly home tomorrow if stable. The patient had renal insufficiency on angiotensin receptor blockers and would try to avoid calcium blockers with heart failure. Job ID: [id number]
[2019-05-02] MEDS: HumaLOG 300 UNITS/3 ML VIAL SC PRN ×2 (11:25→16:08)
[2019-05-02] MEDS ORDERED: Magnesium 2 GM/50 ML 2 GM in Premix Bag 1 BAG IVPB SCH (12:00)
--- NOTE | 2019-05-02 13:06 | PRG ---
DATE OF SERVICE: 05/02/2019 SERVICE: Pulmonary Medicine. INTERVAL HISTORY: The patient is doing fine from respiratory standpoint. Breathing comfortably. No complaints of chest discomfort. She is on room air and requesting to go home. Otherwise, there has been no interval change to her condition. PHYSICAL EXAMINATION: VITAL SIGNS: Afebrile, pulse 85, blood pressure 139/55, respirations 21, and saturation 95%, currently on room air. GENERAL: The patient is awake and alert, in no apparent distress. LUNGS: Wonderful air entry. No prolonged expiratory phase or wheezing is appreciated. HEART: Normal rate. Regular. ABDOMEN: Soft, nontender, and nondistended. Bowel sounds are positive. MUSCULOSKELETAL: No cyanosis or clubbing. There is no pitting in the bilateral lower extremities. NEUROLOGIC: Grossly nonfocal. LABORATORY DATA: WBC 14.0, hemoglobin 12.7, and platelets 321,000. Basic metabolic profile is completely unremarkable. Magnesium 1.7. Urinalysis is negative. All cultures remain negative. ASSESSMENT: 1. Acute hypoxic respiratory failure, resolved. 2. Acute on chronic diastolic heart failure. 3. Healthcare-associated pneumonia, positive on imaging. 4. Hypertension. DISCUSSION AND PLAN: The patient is fine from respiratory standpoint. She is stable for transition to the telemetry unit or discharge from a purely respiratory perspective. At this point, she has no further requirements for inpatient Pulmonary or Critical Care opinion, and I will sign off. Please call if additional questions or concerns are present. Job ID: [id number]
[2019-05-02] MEDS ORDERED: Carvedilol 6.25 MG TAB PO SCH (17:00)
--- NOTE | 2019-05-02 20:14 | PDOC.HOSPP ---
- Subjective Encounter Date: 05/02/19 Encounter Time: 14:00 Subjective: Patient seen and examined for CHF. No CP. No new complaints. No overnight events - Objective Vital Signs & Weight: Vital Signs (12 hours) Temp Pulse BP Pulse Ox 05/02/19 19:44 95 05/02/19 16:07 160/59 H 05/02/19 16:06 98 160/68 H 05/02/19 16:00 98.4 F 05/02/19 11:25 85 139/55 L Weight Weight 153 lb 3.54 oz Most Recent Monitor Data Heart Rate from ECG 88 NIBP 160/68 NIBP BP-Mean 98 Respiration from ECG 21 SpO2 95 I&O: 05/01/19 05/02/19 05/03/19 06:59 06:59 06:59 Intake Total 800 1160 Output Total 3030 1705 1075 Balance -2230 -545 -1075 Result Diagrams: 05/02/19 03:37 05/02/19 03:37 Additional Labs: Accuchecks 05/02/19 05/02/19 05/02/19 15:55 11:10 06:15 POC Glucose 223 H 277 H 118 H 05/01/19 20:33 POC Glucose 285 H EKG Reviewed by me: Yes (Tele SR) Hospitalist ROS - Review of Systems Respiratory: denies: cough, dry, shortness of breath, hemoptysis, SOB with excertion, pleuritic pain, sputum, wheezing, other Cardiovascular: denies: chest pain, palpitations, orthopnea, paroxysmal noc. dyspnea, edema, light headedness, other - Medication Medications: Active Medications Generic Name Dose Route Start Last Admin Trade Name Freq PRN Reason Stop Dose Admin Amoxicillin/Clavulanate Potassium 875 mg 04/30/19 21:00 05/02/19 07:55 Augmentin PO 05/03/19 21:01 875 mg Q12HR LENNY Administration Carvedilol 12.5 mg 05/02/19 17:00 05/02/19 16:07 Coreg PO 12.5 mg BID-WM LENNY Administration Clonidine 0.1 mg 04/28/19 00:31 04/29/19 20:15 Catapres PO 0.1 mg Q4H PRN Administration SBP > 160, use second Enoxaparin Sodium 30 mg 04/28/19 09:00 05/02/19 07:56 Lovenox SC 30 mg 0900 LENNY Administration Furosemide 40 mg 05/01/19 07:30 05/02/19 07:54 Lasix PO 40 mg DAILY-AC LENNY Administration Glipizide 5 mg 04/30/19 07:30 05/02/19 16:07 Glucotrol PO 5 mg BID-AC LENNY Administration Hydralazine HCl 50 mg 05/02/19 15:00 05/02/19 16:06 Apresoline PO 50 mg TID LENNY Administration Insulin Human Lispro 0 units 04/29/19 22:50 05/02/19 16:08 Humalog SC 4 unit .MODERATE SLIDING SC PRN Administration Moderate Correctional Scale Insulin Human Lispro 0 units 04/29/19 22:50 05/01/19 20:30 Humalog SC 3 unit .BEDTIME SLIDING SC PRN Administration Bedtime Correctional Scale Polyethylene Glycol 17 gm 05/01/19 09:00 05/02/19 07:56 Miralax PO 17 gm DAILY LENNY Administration Potassium Chloride 20 meq 04/30/19 17:00 05/02/19 16:06 K-Dur PO 20 meq BID-WM LENNY Administration Senna/Docusate Sodium 2 tab 04/30/19 21:00 05/02/19 07:54 Senokot S PO 2 tab BID LENNY Administration - Exam General Appearance: NAD Respiratory: no rales, no ronchi Gastrointestinal: soft, non-distended Extremities: no cyanosis Hosp A/P - Plan Acute hypoxic/hypercapnic resp failure Acute on chronic diastolic HF (POA) Moderate CAD DM2 HTN HLD PLAN: 05/02 2 gm IV Mag sulfate x 1 Coreg/Hydralazine dose increased Cont other meds 05/01 Cont PO Lasix/hydralazine/Coreg Cont other meds AM labs Await Tele beds Pt also has medical record - [id number]
[2019-05-03 04:11] VITALS: TEMP 97.9
--- NOTE | 2019-05-03 08:56 | PRG ---
DATE OF SERVICE: 05/03/2019 SUBJECTIVE: Ms. Talley is sitting up in the chair. She feels well. No chest pain or pressure. OBJECTIVE: VITAL SIGNS: Blood pressure 140/90; pulse 109, it is sinus. LUNGS: Clear. CARDIAC: Normal S1, S2. ABDOMEN: Soft, nontender. EXTREMITIES: No edema. PERTINENT LABORATORY DATA: Her creatinine has continued to improve, now it is all the way down to 0.98. Looks like the GEOVANY inhibitors and angiotensin receptor blockers cause renal insufficiency in this patient, although listed as an allergy. ASSESSMENT: 1. Diastolic heart failure, improved. 2. Sinus tachycardia. PLAN: 1. Increase carvedilol to 25 mg twice a day. 2. Hydralazine 50 mg 3 times a day. 3. Aspirin. 4. Potassium. 5. Torsemide 20 mg a day. 6. Potassium 20 mEq twice a day. Try to increase activity home soon. Job ID: [id number]
[2019-05-03] MEDS ORDERED: Torsemide 20 MG TAB PO SCH (09:00)
[2019-05-03] MEDS: Potassium Chloride 20 MEQ TAB PO SCH (09:49)
[2019-05-03] MEDS: hydrALAZINE 25 MG TAB PO SCH ×2 (09:49→14:12)
[2019-05-03] MEDS: Amoxicillin/Potassium Clav 875 MG TAB PO SCH (09:49)
[2019-05-03] MEDS: Enoxaparin Sodium 30 MG/0.3 ML SYRINGE SC SCH (09:50)
[2019-05-03] MEDS: glipiZIDE 5 MG TAB PO SCH (09:50)
[2019-05-03 09:51] VITALS: BP 168/83
[2019-05-03] MEDS: Polyethylene Glycol 3350 17 GM Packet PO SCH (09:53)
[2019-05-03] MEDS: Senokot S 8.6-50 MG TAB PO SCH (09:53)
[2019-05-03] MEDS: HumaLOG 300 UNITS/3 ML VIAL SC PRN (11:12)
[2019-05-03] MEDS ORDERED: Carvedilol 6.25 MG TAB PO SCH (17:00)
--- NOTE | 2019-05-04 03:46 | PQF ---
JOSE HENSLEY MALIK MD [id number] CLINICAL DOCUMENTATION CLARIFICATION FORM: POST DISCHARGE Addendum to original discharge summary date: ____ Late entry note date: __ DATE: 05/04/19 ATTN: Dat Pradhan Please exercise your independent, professional judgment in responding to the clarification form. Clinical indicators are provided on the bottom of this form for your review Can you please further clarify if Sepsis is ruled in or ruled out? Sepsis [ x] Ruled in diagnosis [ ] Continue to treat [ x ] Resolved [ ] Ruled out diagnosis [ ] Cannot rule out diagnosis [ ] Other diagnosis [ ] Unable to determine In addition, please specify: Present on Admission (POA): [ x ] Yes [ ] No [ ] Unable to determine For continuity of documentation, please document condition throughout progress notes and discharge summary. Thank You. CLINICAL INDICATORS - SIGNS / SYMPTOMS / LABS H and P pg.1- Altered mental status H and P pg.2- Lactic acid 2.6H H and P pg.4- Sepsis secondary to pneumonia Laboratory- WBC 16.7H, 12.4H, 16.0H, 16.1H, 14.0H RISK FACTORS Acute hypoxic and hypercapnic respiratory failure- H and P pg.3 Multifocal pneumonia- H and P pg.4 Acute on chronic CHF- Consult- Dr. Gómez [facility] Chest X ray 04/27 Chest/Thorax CTA 04/27 Pulmonary Consult- Dr. Dueñas 04/28 IV fluids- MAR Zosyn 4.5gm- IV- MAR 04/27 (This form is maintained as a part of the permanent medical record) 2014 [employer] All Rights Reserved [email or web address] [not [email or web address]] MTDD
--- NOTE | 2019-05-04 07:54 | DIS ---
DATE OF ADMISSION: 04/28/2019 DATE OF DISCHARGE: 05/03/2019 DISCHARGE DISPOSITION: Home. FOLLOW UP: With primary care physician, Dr. Vicente Roman at [facility]. Please note that the patient has 2 different medical record numbers. For previous records, please refer to . The patient was seen and examined on the day of discharge. Denies any new complaints. No shortness of breath or chest pain reported. DISCHARGE MEDICATION: 1. Glipizide 5 mg b.i.d. 2. Metformin 1000 mg b.i.d. 3. Crestor 20 mg daily. 4. Augmentin 875 twice daily, #7. 5. Carvedilol 25 mg b.i.d. 6. Hydralazine 50 mg 3 times daily. 7. Potassium chloride 20 mEq b.i.d. 8. Torsemide 20 mg daily. Repeat basic metabolic profile in 1 week is recommended. Primary care physician advised to follow. Follow up with Cardiology as scheduled. BRIEF HOSPITAL COURSE: The patient is a 64-year-old female with diastolic heart failure, presented to the hospital on April 27, 2019, with shortness of breath along with altered mentation. Her workup was consistent with acute hypoxic and hypercapnic respiratory failure along with encephalopathy and sepsis secondary to multifocal pneumonia. She was placed on mechanical ventilation. Her symptoms improved with diuretics as well as empiric antibiotics. She was monitored in the intensive care unit. She was then transferred to telemetry unit after extubation. She has been extensively counseled on congestive heart failure. Her medications have been optimized per Dr. Gómez. Blood culture remained negative. The patient also had acute kidney injury with creatinine 1.52 on admission and at discharge her creatinine was 0.98. She also had some electrolyte abnormalities including hypomagnesemia and that has been replaced. Her troponins were also elevated, probably secondary to demand ischemia/type 2 myocardial infarction. FINAL DIAGNOSES: 1. Acute hypoxic and hypercapnic respiratory failure/Severe Sepsis due to multifocal pneumonia (POA) 2. Toxic metabolic encephalopathy, present on admission. 3. Acute on chronic diastolic heart failure. 4. Type 2 myocardial infarction, resolved. 5. Moderate coronary artery disease. 6. Diabetes mellitus type 2. 7. Hypertension. 8. Hyperlipidemia. 9. Hyponatremia. 10. Hypomagnesemia. 11. Hypokalemia. 12. Lactic acidosis secondary to sepsis, present on admission. PLAN: Plan of care was discussed with the patient in detail. She stated understanding. Job ID: [id number] MTDD
== END 2019-05-03 14:35 | disposition home or self-care (01) | DRG 871 ==
LOC: EDBD 21:16 → ERS 21:16 → CCU 04-28 01:16
PROVIDERS: ADMIT Internal Medicine; ATTEND Internal Medicine
PROC: 0BH17EZ Insertion of Endotracheal Airway into Trachea, Via Natural or Artificial Opening (ICD-10-PCS; principal; 2019-04-28)
PROC: 5A1945Z Respiratory Ventilation, 24-96 Consecutive Hours (ICD-10-PCS; 2019-04-28)
PROC: 0DH67UZ Insertion of Feeding Device into Stomach, Via Natural or Artificial Opening (ICD-10-PCS; 2019-04-28)
DX: A41.9 Sepsis, unspecified organism (principal); J96.01 Acute respiratory failure with hypoxia; J18.9 Pneumonia, unspecified organism; I50.33 Acute on chronic diastolic (congestive) heart failure; I21.A1 Myocardial infarction type 2; J96.02 Acute respiratory failure with hypercapnia; E87.1 Hypo-osmolality and hyponatremia; R65.20 Severe sepsis without septic shock; Y95 Nosocomial condition; I45.81 Long QT syndrome; E78.5 Hyperlipidemia, unspecified; E11.9 Type 2 diabetes mellitus without complications; I25.10 Atherosclerotic heart disease of native coronary artery without angina pectoris; E87.6 Hypokalemia; E83.42 Hypomagnesemia; I11.0 Hypertensive heart disease with heart failure; Z78.1 Physical restraint status; Z95.5 Presence of coronary angioplasty implant and graft
CPT/HCPCS: 31500; 36415; 36416; 51702; 71045; 71275; 80048; 80053; 81003; 81015; 82330; 82550; 82553; 82803; 82805; 83605; 83735; 83880; 84100; 84484; 85025; 87040; 87070; 87205; 87804; 93005; 93798; 94002; 94003; 94640; 96365; 96366; 96367; 96368; 96374; 96375; J1650; J1940; J2543; J2704; J2920; J3370; J3475; J3480; J3490; J7050; J7512; J7620; Q9967

== ENCOUNTER 2019-05-18 22:44 | Inpatient (IN) | payer MEDICARE ==
--- NOTE | 2019-05-18 23:18 | RAD ---
Portable frontal chest radiograph: 05/18/2019 COMPARISON: 04/27/2019 HISTORY: Difficulty breathing FINDINGS: The endotracheal tube and nasogastric tube have been removed since the prior exam. There is stable prominence of the cardiac silhouette. There is atherosclerotic calcification aortic arch. No pneumothorax is seen. There is nonspecific interstitial and alveolar opacity within bilateral lung bases, left greater than right. Aeration within the right base has improved since the prior exam. IMPRESSION: Interstitial and alveolar opacity in the lung bases suggesting infectious pneumonitis/asp iration and/or pulmonary edema. Recommend follow-up imaging following treatment to document resolution.
[2019-05-18 23:31] LABS: #Lymphocytes 2.6 thou/uL (1.20-3.40); #Monocytes 1.7 thou/uL (0.11-0.59); #Neutrophils 12.3 thou/uL (1.40-6.50); %Basophils 0.3 % (0.0-1.0); %Eosinophils 0.2 % (0.0-10.0); %Lymphocytes 15.5 % (21.0-51.0); %Monocytes 10.3 % (0.0-10.0); %Neutrophils 73.8 % (42.0-75.0); Hemoglobin 10.5 g/dL (12.0-16.0); Mean Corpuscular HGB CONC 34.3 g/dL (32.0-36.0); Mean Corpuscular Hemoglobin 31.6 pg (27.0-31.0); Mean Corpuscular Volume 92.2 fL (78.0-98.0); Mean Platelet Volume 8.7 fL (7.4-10.4); Platelet Count 257 thou/uL (130-400); RBC Distribution Width 11.7 % (11.5-14.5); Red Blood Cell (RBC) Count 3.31 mill/uL (4.20-5.40); White Blood Cell (WBC) Count 16.7 thou/uL (4.8-10.8)
[2019-05-18 23:54] LABS: ALT (SGPT) 9 U/L (8-55); AST (SGOT) 21 U/L (5-34); Albumin 3.9 g/dL (3.4-4.8); Alkaline Phosphatase 65 U/L (40-110); Anion Gap 20 mmol/L (10-20); BUN (Urea Nitrogen) 20 mg/dL (9.8-20.1); Bilirubin, Total 0.9 mg/dL (0.2-1.2); CK (CPK) 46 U/L (29-168); Calc. Creatinine Clearance 0 mL/min (70-130); Carbon Dioxide 23 mmol/L (23-31); Chloride 95 mmol/L (98-107); Estimated GFR-MDRD 36; Globulin 3.7 g/dL (2.4-3.5); Glucose 206 mg/dL (80-115); Potassium 4.3 mmol/L (3.5-5.1); Protein, Total 7.6 g/dL (6.0-8.3); Sodium 134 mmol/L (136-145)
[2019-05-18] MEDS ORDERED: Furosemide 40 MG/4 ML VIAL ONE (23:59)
[2019-05-19 00:17] LABS: CKMB 0.4 ng/mL (0-6.6)
[2019-05-19] MEDS ORDERED: Cefepime 2 GM VIAL ONE (00:45)
[2019-05-19] MEDS ORDERED: Sodium Chloride 0.9% 100 ML ONE (00:46)
[2019-05-19] MEDS ORDERED: hydrALAZINE 20 MG/ML VIAL SLOW IVP PRN (04:06)
[2019-05-19] MEDS ORDERED: Ondansetron PF 4 MG/2 ML Vial IVP PRN (04:06)
[2019-05-19] MEDS ORDERED: Dextrose 5% in Water 1,000 ML IV PRN (04:06)
[2019-05-19] MEDS ORDERED: Ondansetron ODT 4 MG TAB PO PRN (04:06)
[2019-05-19] MEDS ORDERED: Labetalol HCl 100 MG/20 ML VIAL SLOW IVP PRN (04:06)
[2019-05-19] MEDS ORDERED: Dextrose 50% Abboject 50 ML SYRINGE SLOW IVP PRN (04:06)
--- NOTE | 2019-05-19 04:48 | HP ---
PRIMARY CARE PROVIDER: Dr. Vicente Roman at [facility]. CHIEF COMPLAINT: Shortness of breath. HISTORY OF PRESENT ILLNESS: This is a 64-year-old female, who presented to [facility] Emergency Department with complaints of increased shortness of breath. EMS personnel evaluated the patient at home and noted O2 saturations in the mid 60% range. The patient was placed on BiPAP noninvasive mechanical ventilation and evaluated in the emergency room. Chest imaging showed bilateral infiltrates concerning for infectious process. The patient's history is significant for recent admission, 04/28/2019 through 05/04/2019, for hypoxic respiratory failure, severe sepsis due to multifocal pneumonia with associated toxic metabolic encephalopathy. The patient was discharged home on Augmentin and completed the antibiotic prescription according to the daughter. The patient became increasingly short of breath in last 24 hours per daughter's report, prompting evaluation in the emergency room. The patient reported feeling chilled and increasing cough with decreased exercise tolerance. No other family members reporting similar symptoms. In the emergency room, the patient received IV vancomycin and cefepime in addition to Lasix 40 mg IV push x1 dose. The patient was noted with question of pulmonary edema in addition to multifocal infiltrates. The patient was also continued on BiPAP noninvasive mechanical ventilation and transferred to the intermediate care unit for further evaluation. PAST MEDICAL HISTORY: 1. Hyperlipidemia. 2. Multifocal pneumonia with severe sepsis, 04/2019. 3. Diastolic congestive heart failure. 4. Hypertension. 5. Diabetes mellitus, type 2. PAST SURGICAL HISTORY: Reviewed and negative. CURRENT MEDICATIONS: 1. Norvasc 10 mg p.o. daily. 2. Aspirin 81 mg p.o. daily. 3. Glipizide XL 5 mg p.o. b.i.d. 4. Metformin 1000 mg p.o. b.i.d. 5. Crestor 20 mg p.o. daily. 6. Coreg 25 mg p.o. b.i.d. 7. Hydralazine 50 mg p.o. t.i.d. 8. Potassium chloride 20 mEq p.o. b.i.d. 9. Torsemide 20 mg p.o. daily. ALLERGIES: NO KNOWN DRUG ALLERGIES. FAMILY HISTORY: Positive for diabetes mellitus and hypertension. SOCIAL HISTORY: Accompanied by her daughter in the hospital. Resides in the [place], [place] area. No current alcohol, tobacco, or illicit drug use. REVIEW OF SYSTEMS: Unobtainable as the patient is on BiPAP noninvasive mechanical ventilation. PHYSICAL EXAMINATION: VITAL SIGNS: On admission; blood pressure 135/57, pulse 93, respiratory rate 20, and O2 saturation 96% on FiO2 of 40% by BiPAP noninvasive mechanical ventilation. GENERAL APPEARANCE: This is a 64-year-old female, lethargic, on BiPAP noninvasive mechanical ventilation. HEENT: Pupils are equal, round, and reactive to light and accommodation. Extraocular muscles are intact. No scleral icterus. No conjunctival injection. Nares patent. OP is clear. Oral mucosa dry. BiPAP face mask in place. NECK: Supple. No cervical adenopathy. No thyromegaly. No carotid bruits. No JVD appreciated. Cervical spine, full active and passive range of motion. No meningeal signs noted. CHEST: Diminished breath sounds in the bases bilaterally. CARDIOVASCULAR: S1 and S2 without noted murmur, rub, or gallop. ABDOMEN: Rounded, soft, nontender, and nondistended. Bowel sounds are positive in all 4 quadrants. EXTREMITIES: Warm and dry with fair turgor. No clubbing, cyanosis, or asymmetric edema appreciated. Pulses palpable distally at the dorsalis pedis, posterior tibial, and popliteal arteries bilaterally. Capillary refill less than 2 seconds. NEUROLOGIC: Somnolent but opens eyes to name. Not observed ambulatory during this exam. PERTINENT LABORATORY DATA AND X-RAY FINDINGS: Sodium 134, potassium 4.3, chloride 95, CO2 of 23, BUN 20, creatinine 1.45, estimated GFR 36, glucose 206, lactic acid level 1.6, and calcium 8.0. LFTs within normal limits. Troponin I 0.155. BNP 813, previously noted 643 on 04/27/2019. CBC showed a white blood cell count of 16.7, hemoglobin 10.5, hematocrit 31, and platelet count 257 with 74% neutrophils. Portable chest x-ray dated 05/18/2019, showed interstitial and alveolar opacities in the lung bases suggesting infectious process and/or pulmonary edema. EKG dated 05/19/2019, by my interpretation shows sinus mechanism with heart rates in the 90s. Left atrial enlargement. No acute ST-T wave changes appreciated. ASSESSMENT AND PLAN: 1. Multifocal pneumonia, healthcare-associated. Continue cefepime plus vancomycin intravenously. Pulmonary supportive management with BiPAP noninvasive mechanical ventilation. DuoNebs q.4 hours p.r.n. Consider Pulmonology consultation. 2. Acute on chronic hypoxic hypercapnic respiratory failure. Multifactorial including #1. Continue treatment as outlined previously. Wean BiPAP noninvasive mechanical ventilation as clinically indicated. 3. Chronic obstructive pulmonary disease exacerbation. We will continue general pulmonary supportive management. Continue cefepime 2 g IV q.12 hours. Prednisone 40 mg p.o. daily. DuoNebs q.4 hours p.r.n. 4. Hypertension. Resume home blood pressure regimen once confirmed. 5. Diabetes mellitus, type 2. Insulin sliding scale for reflexive coverage. Serial Accu-Cheks before meals and at bedtime. ADA diet. 6. Prophylaxis. SCDs while in bed. Pepcid 20 mg p.o. b.i.d. 7. Code status is full. Surrogate medical decision maker is patient's daughter. Job ID: [id number]
[2019-05-19] MEDS ORDERED: Cefepime 2 GM in Sodium Chloride 0.9% 100 ML IVPB SCH (09:00)
[2019-05-19] MEDS: metFORMIN 500 MG TAB PO SCH ×2 (10:00→18:12)
[2019-05-19] MEDS: hydrALAZINE 25 MG TAB PO SCH ×3 (10:00→22:00)
[2019-05-19] MEDS: Famotidine/PF 20 mg/2ml Vial SLOW IVP SCH (10:00)
[2019-05-19] MEDS: Amlodipine 10 MG TAB PO SCH (10:01)
[2019-05-19] MEDS: Rosuvastatin 20 MG TAB PO SCH (10:01)
[2019-05-19] MEDS: Carvedilol 25 MG TAB PO SCH ×2 (10:02→22:00)
[2019-05-19] MEDS: Torsemide 20 MG TAB PO SCH (10:02)
[2019-05-19] MEDS: Aspirin Chewable 81 MG TAB PO SCH (10:02)
[2019-05-19] MEDS: Potassium Chloride 20 MEQ TAB PO SCH ×2 (10:03→18:16)
[2019-05-19 11:19] LABS: Anion Gap 17 mmol/L (10-20); BUN (Urea Nitrogen) 21 mg/dL (9.8-20.1); Calc. Creatinine Clearance 41 mL/min (70-130); Calcium 7.8 mg/dL (7.8-10.44); Carbon Dioxide 26 mmol/L (23-31); Chloride 95 mmol/L (98-107); Estimated GFR-MDRD 38; Glucose 113 mg/dL (80-115); Potassium 3.5 mmol/L (3.5-5.1); Sodium 134 mmol/L (136-145)
[2019-05-19 11:25] LABS: Troponin I 0.179 ng/mL (< 0.028)
--- NOTE | 2019-05-19 11:46 | CON ---
DATE OF CONSULTATION: 05/19/2019 This is 70 minutes of time, of that, greater than 50% was spent in performing direct patient care. HISTORY OF PRESENT ILLNESS: The patient is a 64-year-old female, who presents to the emergency room last night via family after having spells of feeling cold and also feeling hot at home. She was somewhat short of breath when she presented and was placed on BiPAP. She had an x-ray showing bilateral lower lobe infiltrates. Of note, the patient was admitted in April and was seen by my partner, Dr. Dueñas at that time. At that time, she also had elevated BNP with suspected diastolic heart failure. I do not see that an echo was ever done from that admission. I do not see any previous echos in the computer. PAST MEDICAL HISTORY: 1. Hyperlipidemia. 2. Question pneumonia. 3. Diastolic congestive heart failure. 4. Hypertension. 5. Diabetes mellitus, type 2. PAST SURGICAL HISTORY: Unremarkable. MEDICATIONS: Prior to admission; 1. Aspirin. 2. Demadex. 3. Crestor. 4. Norvasc. 5. Metformin. 6. Hydralazine. 7. Glipizide. 8. Potassium chloride. 9. Carvedilol. Current inpatient medications; 1. Carvedilol. 2. Cefepime. 3. Famotidine. 4. Glipizide. 5. Glucagon. 6. Levofloxacin. 7. Crestor. 8. Demadex. FAMILY MEDICAL HISTORY: Remarkable for diabetes and hypertension. ALLERGIES: NONE. SOCIAL HISTORY: Nonsmoker. Does not consume alcohol. REVIEW OF SYSTEMS: Twelve-point review of systems is otherwise negative except for that listed above. PHYSICAL EXAMINATION: VITAL SIGNS: Temperature 98.1, pulse 89, blood pressure 136/55, and O2 saturation 95%. GENERAL: The patient is awake, alert, and in no distress. She is sitting up in a chair. HEENT: Unremarkable. NECK: No adenopathy or JVD. LUNGS: She has crackles in both bases. No wheezing. CARDIOVASCULAR: S1 and S2 regular with a 2/6 holosystolic murmur at the left sternal border. ABDOMEN: Soft and nontender. EXTREMITIES: No clubbing, cyanosis, or edema. LABORATORY DATA: Sodium of 134, potassium 4.3, chloride 95, CO2 of 23, BUN 20, creatinine 1.4, and glucose 206. BNP is 812. Troponin 0.15. White blood cell count 16.7, hematocrit 30.5, and platelet count 257. IMAGING DATA: Her x-ray shows bilateral lower lobe infiltrates. ASSESSMENT: I suspect we may be dealing with diastolic congestive heart failure rather than pneumonia. PLAN: 1. I will get an echocardiogram. 2. I will check a procalcitonin level. If that is low, then that would probably exclude this being an infectious process. 3. For the time being, she will continue antibiotics. 4. She is stable for transfer to the floor. Job ID: [id number]
[2019-05-19] MEDS: Cefepime 2 GM in Sodium Chloride 0.9% 100 ML IVPB SCH (12:09)
--- NOTE | 2019-05-19 14:06 | PDOC.HOSPP ---
- Subjective Encounter Date: 05/19/19 Encounter Time: 12:04 Subjective: 64 y/o female with diastolic HF, HTN, DM, and recent hospitalization for multifocal pneumonia between 04/28 and 05/04 readmitted with worsening SOB and hypoxia. Treated with BIPAP and diuretic as well as IV antibiotics with improvement. Denied fever and chest pain. - Objective Vital Signs & Weight: Vital Signs (12 hours) Temp Pulse Resp BP BP Pulse Ox 05/19/19 13:10 97.9 F 90 16 128/66 93 L 05/19/19 10:24 98.1 F 05/19/19 10:01 88 136/55 L 05/19/19 10:00 89 132/63 05/19/19 08:00 98 05/19/19 07:24 98.0 F Weight Weight 142 lb 5 oz Most Recent Monitor Data Heart Rate from ECG 86 NIBP 135/55 NIBP BP-Mean 81 Respiration from ECG 27 SpO2 95 I&O: 05/18/19 05/19/19 05/20/19 06:59 06:59 06:59 Intake Total 360 100 Balance 360 100 Result Diagrams: 05/18/19 23:12 05/19/19 10:48 Additional Labs: Accuchecks 05/19/19 05/19/19 10:15 06:04 POC Glucose 132 H 175 H Hospitalist ROS - Medication Medications: Active Medications Generic Name Dose Route Start Last Admin Trade Name Freq PRN Reason Stop Dose Admin Amlodipine Besylate 10 mg 05/19/19 09:00 05/19/19 10:01 Norvasc PO 10 mg DAILY LENNY Administration Aspirin 81 mg 05/19/19 09:00 05/19/19 10:02 Aspirin Chewable PO 81 mg DAILY LENNY Administration Carvedilol 25 mg 05/19/19 09:00 05/19/19 10:02 Coreg PO 25 mg BID LENNY Administration Famotidine 20 mg 05/19/19 09:00 05/19/19 10:00 Pepcid SLOW IVP 20 mg DAILY LENNY Administration Glipizide 5 mg 05/19/19 07:30 05/19/19 10:00 Glucotrol Xl PO 5 mg BID-AC LENNY Administration Hydralazine HCl 50 mg 05/19/19 09:00 05/19/19 10:00 Apresoline PO 50 mg TID LENNY Administration Cefepime HCl 2 gm/ Sodium 100 mls @ 200 mls/hr 05/19/19 13:00 05/19/19 12:09 Chloride IVPB 100 mls 0100,1300 LENNY Administration Levofloxacin 750 mg/ Device 150 mls @ 100 mls/hr 05/19/19 05:00 05/19/19 05: 54 IVPB 150 mls Q24HR LENNY Administration Metformin HCl 1,000 mg 05/19/19 08:00 05/19/19 10:00 Glucophage PO 1,000 mg BID-WM LENNY Administration Potassium Chloride 20 meq 05/19/19 08:00 05/19/19 10:03 K-Dur PO 20 meq BID-WM LENNY Administration Rosuvastatin Calcium 20 mg 05/19/19 09:00 05/19/19 10:01 Crestor PO 20 mg DAILY LENNY Administration Torsemide 20 mg 05/19/19 09:00 05/19/19 10:02 Demadex PO 20 mg DAILY LENNY Administration - Exam General Appearance: awake alert Eye: anicteric sclera ENT: normocephalic atraumatic, moist mucosa Neck: supple, symmetric, no JVD Heart: RRR, murmur present Respiratory: no wheezes, no ronchi, normal chest expansion Respiratory - other findings: fair air entry with crackles and transmitted sound Gastrointestinal: soft, non-tender, non-distended, normal bowel sounds Extremities: no cyanosis, no edema Neurological: cranial nerve grossly intact, no focal deficits Psychiatric: A&O x 3 Hosp A/P (1) Acute respiratory failure with hypoxia Code(s): J96.01 - ACUTE RESPIRATORY FAILURE WITH HYPOXIA Status: Acute (2) YESY (acute kidney injury) Code(s): N17.9 - ACUTE KIDNEY FAILURE, UNSPECIFIED Status: Acute (3) Elevated troponin Code(s): R79.89 - OTHER SPECIFIED ABNORMAL FINDINGS OF BLOOD CHEMISTRY Status : Acute (4) Multifocal pneumonia Code(s): J18.9 - PNEUMONIA, UNSPECIFIED ORGANISM Status: Acute (5) Heart murmur Code(s): R01.1 - CARDIAC MURMUR, UNSPECIFIED Status: Acute (6) Bilateral pulmonary infiltrates on CXR Code(s): R91.8 - OTHER NONSPECIFIC ABNORMAL FINDING OF LUNG FIELD Status: Acute (7) Diabetes mellitus Code(s): E11.9 - TYPE 2 DIABETES MELLITUS WITHOUT COMPLICATIONS Status: Acute (8) Acute on chronic diastolic (congestive) heart failure Code(s): I50.33 - ACUTE ON CHRONIC DIASTOLIC (CONGESTIVE) HEART FAILURE Status : Acute - Plan Continue antibiotics, bronchodilators and oxygen. BIPAP as needed get echo. follo renal function Consult cardiology get swallow evaluation
[2019-05-19] MEDS ORDERED: Vancomycin HCl 1 GM in Premix Bag 1 BAG IVPB SCH (14:15)
[2019-05-19] MEDS ORDERED: Furosemide 40 MG/4 ML VIAL ONE (16:14)
[2019-05-19 16:28] LABS: Actual Bicarbonate (HCO3a) 29.2 mEq/L (22-28); Base Excess (BEa) 2.4 mEq/L (-2.0 to +3.0); CO2 Tension 56.1 mmHg (35.0-45.0); Carboxyhemoglobin (COHb) 0.8 gm% (0.0-3.0); Hemoglobin (Hb) 10.9 g/dL (12.0-16.0); O2 Tension (PaO2) 49.6 mmHg (> 80.0); Potassium - ABG Lab 4.28 mmol/L (3.70-5.30); pH, Arterial 7.33 (7.35-7.45)
[2019-05-19 16:29] LABS: ALV-art Gradient 129.825 (0-20); Puncture Site RRA
[2019-05-19] MEDS: HumaLOG 300 UNITS/3 ML VIAL SC PRN (19:21)
[2019-05-19] MEDS ORDERED: Prevnar 13-Val Conj/PF 0.5 ML SYRINGE IM ONE (21:00)
[2019-05-19] MEDS ORDERED: Furosemide 40 MG/4 ML VIAL SLOW IVP SCH (22:00)
[2019-05-19] MEDS ORDERED: Potassium Chloride 20 MEQ TAB PO SCH (22:00)
--- NOTE | 2019-05-19 22:24 | CON ---
DATE OF CONSULTATION: 05/19/2019 REASON FOR CONSULTATION: Recurrent pulmonary edema. HISTORY OF PRESENT ILLNESS: Ms. Mike Talley is an unfortunate 64-year-old woman. She initially had an episode of pulmonary edema in the postoperative period after hernia repair. She underwent stress testing, which did not show ischemia, but in view of her symptoms, we went ahead and did a heart catheterization. She was found to have mild nonobstructive coronary atherosclerotic plaque. Unfortunately, the patient has 3 different medical record numbers under 3 different names, but those records are not in her current chart, but they are in her previous chart in the electronic system. The patient came into the hospital with difficulty breathing on this occasion, she improved but then rapidly deteriorated and had to come back to the intermediate care unit for CPAP. She did not have any obstructive coronary artery disease as outlined in the note, but she was noted to have a gradient what looked like the descending thoracic aorta 40 mm gradient. We may consider imaging that during this admission. The patient currently is resting more comfortably. MEDICATIONS: Please see nurse's notes. We had to take her off GEOVANY inhibitors, previously as it caused renal failure. On the last admission, the patient went home on carvedilol, diuretics, hydralazine, amlodipine, and rosuvastatin. 1. The diuretic dose was torsemide 20 mg a day. 2. Amlodipine 10 mg a day. 3. Hydralazine 50 mg 3 times a day. 4. Carvedilol 25 mg twice a day. ALLERGIES: NONE. SOCIAL HISTORY: No alcohol or tobacco. She has a very supportive family. PHYSICAL EXAMINATION: GENERAL: This is a pleasant Latin-Greek woman breathing better now after receiving some Lasix. VITAL SIGNS: Blood pressure 129/77. Intermittently, she is hypertensive. Pulse is in the 90s and sinus. LUNGS: Clear anteriorly and laterally. CARDIAC: Normal S1, normal S2. ABDOMEN: Soft and nontender. EXTREMITIES: Warm, dry. No clubbing. No cyanosis or edema. LABORATORY DATA: Hemoglobin is 10.5. Blood gas this afternoon; pH 7.33, pCO2 is 56, pO2 is 49.6. Chest x-ray shows pulmonary edema. ASSESSMENT: 1. Recurrent diastolic heart failure. 2. Nonobstructive coronary artery disease on recent catheterization in March. 3. Hypertension and hypercholesterolemia, being treated. 4. Gradient at the descending thoracic aorta, could have a coarctation. PLAN: 1. Continue diuretics. 2. We will image the thoracic aorta during this admission. 3. Has chronically elevated troponin levels, which is not related to myocardial infarction, but is generally a negative prognostic sign. We will continue to follow with you in this unfortunate patient. Job ID: [id number]
[2019-05-20] MEDS: Cefepime 2 GM in Sodium Chloride 0.9% 100 ML IVPB SCH (02:55)
[2019-05-20 04:20] LABS: ALT (SGPT) Less than 7 U/L (8-55); AST (SGOT) 15 U/L (5-34); Albumin 3.5 g/dL (3.4-4.8); Alkaline Phosphatase 52 U/L (40-110); Anion Gap 18 mmol/L (10-20); BUN (Urea Nitrogen) 32 mg/dL (9.8-20.1); Bilirubin, Total 0.9 mg/dL (0.2-1.2); Calc. Creatinine Clearance 24 mL/min (70-130); Carbon Dioxide 27 mmol/L (23-31); Chloride 95 mmol/L (98-107); Estimated GFR-MDRD 20; Glucose 151 mg/dL (80-115); Potassium 3.9 mmol/L (3.5-5.1); Protein, Total 7.5 g/dL (6.0-8.3); Sodium 136 mmol/L (136-145)
[2019-05-20 04:46] LABS: Band 4 % (5-11); Hemoglobin 9.8 g/dL (12.0-16.0); Lymphocytes 11 % (21-51); MDiff Complete? YES; Mean Corpuscular HGB CONC 33.8 g/dL (32.0-36.0); Mean Corpuscular Hemoglobin 31.1 pg (27.0-31.0); Mean Corpuscular Volume 91.9 fL (78.0-98.0); Mean Platelet Volume 8.6 fL (7.4-10.4); Monocytes 7 % (0-10); Neutrophil 78 % (42-75); Platelet Count 254 thou/uL (130-400); Platelet Morphology Comment Appears Adequate; RBC Distribution Width 11.8 % (11.5-14.5); RBC Morphology Normal; Red Blood Cell (RBC) Count 3.15 mill/uL (4.20-5.40); White Blood Cell (WBC) Count 13.4 thou/uL (4.8-10.8)
[2019-05-20] MEDS ORDERED: Furosemide 40 MG/4 ML VIAL SLOW IVP SCH ×2 (08:15→09:45)
[2019-05-20] MEDS ORDERED: Potassium Chloride 20 MEQ TAB PO SCH (09:15)
[2019-05-20] MEDS: metFORMIN 500 MG TAB PO SCH (09:32)
[2019-05-20] MEDS: Potassium Chloride 20 MEQ TAB PO SCH (09:32)
[2019-05-20] MEDS: Torsemide 20 MG TAB PO SCH (09:32)
--- NOTE | 2019-05-20 10:13 | PRG ---
DATE OF SERVICE: 05/20/2019 SUBJECTIVE: Ms. Talley looks very ill this morning. She is still on the BiPAP. She is having some difficulty breathing. OBJECTIVE: VITAL SIGNS: Her blood pressure 145/63, pulse in the 90s, it is sinus. LUNGS: There are rales retirement up both lung real. No wheezing. CARDIAC: Normal S1. Normal S2. ABDOMEN: Soft and nontender. EXTREMITIES: No edema. ASSESSMENT: 1. History of diastolic congestive heart failure. 2. History of hypertension. 3. Acute renal failure. Creatinine has gone from 1.38 to 2.4. PLAN: 1. Repeat chest x-ray. 2. Diuretics are on hold this morning pending chest x-ray results. 3. Prognosis, guarded. Other medicines are on hold such as Glucophage. Job ID: [id number]
[2019-05-20] MEDS ORDERED: Carvedilol 25 MG TAB PO SCH (10:15)
--- NOTE | 2019-05-20 10:19 | RAD ---
EXAM: Single view of the chest HISTORY: Dyspnea COMPARISON: 05/18/2019 FINDINGS: Single view of the chest shows a normal sized cardiomediastinal silhouette. Multifocal air space opacities are seen scattered throughout the lungs, unchanged. Atherosclerotic calcifications are seen in the aorta. The bones are unremarkable. IMPRESSION: Multifocal pneumonia
[2019-05-20] MEDS: Carvedilol 25 MG TAB PO SCH ×2 (10:20→21:48)
[2019-05-20] MEDS: hydrALAZINE 25 MG TAB PO SCH ×3 (10:20→21:48)
[2019-05-20] MEDS: Famotidine/PF 20 mg/2ml Vial SLOW IVP SCH (10:20)
[2019-05-20] MEDS: Rosuvastatin 20 MG TAB PO SCH (10:21)
[2019-05-20] MEDS: Amlodipine 10 MG TAB PO SCH (10:24)
[2019-05-20] MEDS: Aspirin Chewable 81 MG TAB PO SCH (10:24)
[2019-05-20] MEDS: methylPREDNISolone Sod Succ 40 MG VIAL IVP SCH ×2 (12:17→17:38)
[2019-05-20] MEDS: HumaLOG 300 UNITS/3 ML VIAL SC PRN ×2 (12:19→17:40)
--- NOTE | 2019-05-20 12:46 | PRG ---
DATE OF SERVICE: 05/20/2019 SUBJECTIVE: The patient had to be put back on BiPAP yesterday because she became more short of breath. Her x-ray shows bilateral infiltrative changes, but better than at the time of admission. Her procalcitonin level came back elevated and her C-reactive protein is quite high, with diuresis, her BUN and creatinine bumped up considerably. This morning, she continues to complain of shortness of breath. OBJECTIVE: VITAL SIGNS: Temperature is 99.0, pulse is 97, blood pressure 145/63, her highest temperature was 99.0. HEENT: Unremarkable. NECK: No adenopathy or JVD. LUNGS: She has inspiratory crackles at the bases. CARDIAC: S1 and S2, regular. ABDOMEN: Soft. EXTREMITIES: No edema. LABORATORY DATA: Sodium 136, potassium 3.9, chloride 95, CO2 of 27, BUN 32, creatinine 2.4, and glucose 151. C-reactive protein 11.6, procalcitonin 3.1. White blood cell count 13.4, hematocrit 29, and platelet count 254. ASSESSMENT: 1. Bilateral pneumonia, currently on broad-spectrum IV antibiotics. 2. Concurrent diastolic cardiac dysfunction. 3. Renal insufficiency, likely aggravated by diuretics. PLAN: In addition to the vancomycin, Levaquin, and cefepime, I will add some corticosteroids. The doses of antibiotics will be reduced given the patient's compromised renal function. Continue BiPAP, I have adjusted settings. Job ID: [id number]
[2019-05-20] MEDS ORDERED: Vancomycin HCl 750 MG in Sodium Chloride 0.9% 250 ML 250 ML IVPB SCH (15:00)
[2019-05-20 15:05] LABS: Bilirubin Negative (Negative); Blood, Urine Negative (Negative); Clarity Turbid (Clear); Glucose, Urine (Dipstick) Normal (Negative); Leukocyte 75 Leu/uL (Negative); Nitrite Negative (Negative); Protein, Urine (Dipstick) 70 mg/dL (Neg-Trace); Renal Epithelial 0-3 HPF (None Seen); Urobilinogen Normal mg/dL (Less than 2)
[2019-05-20 15:12] LABS: Bacteria/HPF None Seen HPF (None Seen)
[2019-05-20 15:13] LABS: Urine Culture Reflex No No
[2019-05-20 15:18] LABS: Creatinine, Urine 74.17 mg/dL (47-110)
--- NOTE | 2019-05-20 16:18 | PDOC.HOSPP ---
- Subjective Encounter Date: 05/20/19 Encounter Time: 11:56 Subjective: 64 y/o female with diastolic HF, HTN, DM, and recent hospitalization for multifocal pneumonia between 04/28 and 05/04 readmitted with worsening SOB and hypoxia. Treated with BIPAP and diuretic as well as IV antibiotics with improvement. Developed worsening SOB/respiratory distress several hours after transfer to floor and was returned to IMCU and restarted on BIPAP. Also found to have positive gram positive blood culture hence started on IV vancomycin. Still requiring BIPAP. - Objective Vital Signs & Weight: Vital Signs (12 hours) Temp Pulse Resp BP Pulse Ox 05/20/19 15:51 98 131/62 05/20/19 15:43 97.8 F 05/20/19 15:37 98 05/20/19 13:15 96 05/20/19 13:11 96 28 H 94 L 05/20/19 11:59 96 05/20/19 11:20 98.5 F 05/20/19 10:24 101 H 142/59 H 05/20/19 10:20 101 H 142/59 H 05/20/19 08:00 98 05/20/19 07:31 99.0 F Weight Weight 142 lb 5 oz Most Recent Monitor Data Heart Rate from ECG 96 NIBP 131/57 NIBP BP-Mean 81 Respiration from ECG 28 SpO2 95 I&O: 05/19/19 05/20/19 05/21/19 06:59 06:59 06:59 Intake Total 360 250 Output Total 550 Balance 360 -300 Result Diagrams: 05/20/19 03:26 05/20/19 03:26 Additional Labs: Accuchecks 05/20/19 05/19/19 05/19/19 10:55 20:27 18:53 POC Glucose 211 H 225 H 270 H Hospitalist ROS - Medication Medications: Active Medications Generic Name Dose Route Start Last Admin Trade Name Freq PRN Reason Stop Dose Admin Albuterol/Ipratropium 3 ml 05/20/19 13:00 05/20/19 13:11 Duoneb NEB 3 ml [id number] LENNY Administration Amlodipine Besylate 10 mg 05/19/19 09:00 05/20/19 10:24 Norvasc PO 10 mg DAILY LENNY Administration Aspirin 81 mg 05/19/19 09:00 05/20/19 10:24 Aspirin Chewable PO 81 mg DAILY LENNY Administration Famotidine 20 mg 05/19/19 09:00 05/20/19 10:20 Pepcid SLOW IVP 20 mg DAILY LENNY Administration Hydralazine HCl 50 mg 05/19/19 09:00 05/20/19 15:51 Apresoline PO 50 mg TID LENNY Administration Vancomycin HCl 750 mg/ Sodium 250 mls @ 250 mls/hr 05/20/19 15:00 05/20/19 15 :52 Chloride IVPB 250 mls 1500 LENNY Administration Levofloxacin 750 mg/ Device 150 mls @ 100 mls/hr 05/20/19 12:00 05/20/19 12: 17 IVPB 150 mls Q2D LENNY Administration Insulin Human Lispro 0 units 05/19/19 04:06 05/20/19 12:19 Humalog SC 4 unit .MODERATE SLIDING SC PRN Administration Moderate Correctional Scale Insulin Human Lispro 0 units 05/19/19 04:06 05/19/19 19:21 Humalog SC 3 unit .BEDTIME SLIDING SC PRN Administration Bedtime Correctional Scale Methylprednisolone Sodium Succinate 20 mg 05/20/19 12:00 05/20/19 12:17 Solu-Medrol IVP 20 mg Q6HR LENNY Administration - Exam General Appearance: awake alert General - other findings: afebrile Eye: anicteric sclera ENT: normocephalic atraumatic Neck: symmetric, no JVD Heart: RRR Respiratory: tachypneic Respiratory - other findings: fair air entry with transmitted sound both lungs Gastrointestinal: soft, non-tender, non-distended, normal bowel sounds Extremities: no edema Neurological: cranial nerve grossly intact, no focal deficits Psychiatric: A&O x 3 Hosp A/P (1) Acute respiratory failure with hypoxia Code(s): J96.01 - ACUTE RESPIRATORY FAILURE WITH HYPOXIA Status: Acute (2) YESY (acute kidney injury) Code(s): N17.9 - ACUTE KIDNEY FAILURE, UNSPECIFIED Status: Acute (3) Elevated troponin Code(s): R79.89 - OTHER SPECIFIED ABNORMAL FINDINGS OF BLOOD CHEMISTRY Status : Acute (4) Multifocal pneumonia Code(s): J18.9 - PNEUMONIA, UNSPECIFIED ORGANISM Status: Acute (5) Heart murmur Code(s): R01.1 - CARDIAC MURMUR, UNSPECIFIED Status: Acute (6) Bilateral pulmonary infiltrates on CXR Code(s): R91.8 - OTHER NONSPECIFIC ABNORMAL FINDING OF LUNG FIELD Status: Acute (7) Diabetes mellitus Code(s): E11.9 - TYPE 2 DIABETES MELLITUS WITHOUT COMPLICATIONS Status: Acute (8) Acute on chronic diastolic (congestive) heart failure Code(s): I50.33 - ACUTE ON CHRONIC DIASTOLIC (CONGESTIVE) HEART FAILURE Status : Acute (9) Infection due to alpha-hemolytic Streptococcus Code(s): A49.1 - STREPTOCOCCAL INFECTION, UNSPECIFIED SITE Status: Acute (10) Mitral regurgitation Status: Acute (11) Pulmonary HTN Code(s): I27.20 - PULMONARY HYPERTENSION, UNSPECIFIED Status: Acute - Plan Continue antibiotics, bronchodilators and oxygen. Continue BIPAP DC lasix due to worsening renal function Get urinalysis and urine electrolytes follow renal function Follow cultures. cardiology and Pulm following. CTA or CT chest contemplated.
[2019-05-20] MEDS: Acetaminophen 500 MG TAB PO PRN (17:33)
[2019-05-20 17:45] LABS: Actual Bicarbonate (HCO3a) 29.1 mEq/L (22-28); Base Excess (BEa) 4.8 mEq/L (-2.0 to +3.0); CO2 Tension 42.4 mmHg (35.0-45.0); Calcium, Ionized 0.96 mmol/L (1.12-1.30); Carboxyhemoglobin (COHb) 0.5 gm% (0.0-3.0); Potassium - ABG Lab 4.01 mmol/L (3.70-5.30); pH, Arterial 7.46 (7.35-7.45)
[2019-05-20 17:50] LABS: O2 Tension (PaO2) 51.2 mmHg (> 80.0); Puncture Site RRA
[2019-05-21] MEDS: methylPREDNISolone Sod Succ 40 MG VIAL IVP SCH ×4 (01:53→17:26)
[2019-05-21] MEDS: Cefepime 2 GM in Sodium Chloride 0.9% 100 ML IVPB SCH (01:53)
[2019-05-21 03:58] LABS: #Lymphocytes 1.2 thou/uL (1.20-3.40); #Monocytes 0.7 thou/uL (0.11-0.59); #Neutrophils 12.3 thou/uL (1.40-6.50); %Eosinophils 0.1 % (0.0-10.0); %Lymphocytes 8.4 % (21.0-51.0); %Monocytes 5.2 % (0.0-10.0); %Neutrophils 86.4 % (42.0-75.0); Hemoglobin 9.1 g/dL (12.0-16.0); Mean Corpuscular HGB CONC 33.9 g/dL (32.0-36.0); Mean Corpuscular Hemoglobin 31.4 pg (27.0-31.0); Mean Corpuscular Volume 92.4 fL (78.0-98.0); Mean Platelet Volume 8.8 fL (7.4-10.4); Platelet Count 263 thou/uL (130-400); RBC Distribution Width 11.9 % (11.5-14.5); Red Blood Cell (RBC) Count 2.91 mill/uL (4.20-5.40); White Blood Cell (WBC) Count 14.2 thou/uL (4.8-10.8)
[2019-05-21 04:51] LABS: Anion Gap 20 mmol/L (10-20); BUN (Urea Nitrogen) 51 mg/dL (9.8-20.1); Calc. Creatinine Clearance 13 mL/min (70-130); Calcium 7.9 mg/dL (7.8-10.44); Carbon Dioxide 24 mmol/L (23-31); Chloride 95 mmol/L (98-107); Estimated GFR-MDRD 11; Glucose 201 mg/dL (80-115); Potassium 4.3 mmol/L (3.5-5.1); Sodium 135 mmol/L (136-145)
[2019-05-21] MEDS: HumaLOG 300 UNITS/3 ML VIAL SC PRN ×4 (06:40→21:23)
--- NOTE | 2019-05-21 08:43 | PRG ---
DATE OF SERVICE: 05/21/2019 SUBJECTIVE: The patient is feeling somewhat better today. She had a good night. The FiO2 has been weaned back down to 30% on the BiPAP. OBJECTIVE: VITAL SIGNS: Temperature is 97.8, pulse 101, blood pressure 137/61. Total intake for 24 hours 660, output 250. HEENT: Unremarkable. NECK: No adenopathy or JVD. LUNGS: She has inspiratory crackles in the bases. CARDIAC: S1, S2. Regular. ABDOMEN: Soft. EXTREMITIES: No edema. LABORATORY DATA: White blood cell count 14.2, hematocrit 26.9, and platelet count 263. Sodium 135, potassium 4.3, chloride 95, CO2 of 24, BUN 51, creatinine 4.2, glucose 201. ASSESSMENT: 1. Acute hypoxic respiratory failure, requiring mechanical ventilation. 2. Diastolic dysfunction. 3. [id number] renal insufficiency, which seems to have been slightly worsened with the diuretics. PLAN: 1. The patient's antibiotics were renally adjusted yesterday. Her diuretics have been stopped. 2. She will continue BiPAP and we will wean as tolerated. 3. Her laboratory data will be trended. 4. May need nephrology input. Job ID: [id number]
[2019-05-21] MEDS ORDERED: Sodium Chloride 0.9% 1,000 ML IV SCH (09:00)
[2019-05-21] MEDS: Amlodipine 10 MG TAB PO SCH (09:29)
[2019-05-21] MEDS: Famotidine/PF 20 mg/2ml Vial SLOW IVP SCH (09:29)
[2019-05-21] MEDS: Carvedilol 25 MG TAB PO SCH ×2 (09:30→21:23)
[2019-05-21] MEDS: Aspirin Chewable 81 MG TAB PO SCH (09:30)
[2019-05-21] MEDS: hydrALAZINE 25 MG TAB PO SCH ×3 (09:30→21:23)
--- NOTE | 2019-05-21 11:15 | CON ---
DATE OF CONSULTATION: HISTORY OF PRESENT ILLNESS: Ms. Mckeon is a 64-year-old female, who has history of chronic renal failure secondary to a presumptive diagnosis of diabetic nephropathy. She was seen in the clinic back on February and creatinine was noted at 1.14. She recently was admitted on May 19, 2019, for shortness of breath. The issue is that the patient may have pulmonary edema versus pneumonia. Please note she was recently admitted for multifocal pneumonia. We are now being consulted for her acute kidney injury on top of her chronic renal failure. Her creatinine today is noted at 4.24. REVIEW OF SYSTEMS: Positive for mild shortness of breath. No chest pain. No nausea. No vomiting. Appetite is decreased. Energy level is decreased. No headache. No diplopia. No hematochezia. No dysuria. No urinary frequency. MEDICATIONS: Currently on; 1. Cefepime 2 g IV daily. 2. Carvedilol currently on 12.5 mg p.o. b.i.d. 3. Currently on BiPAP. 4. Famotidine 20 mg IV daily. 5. Humalog sliding scale. 6. Hydralazine 50 mg p.o. t.i.d. 7. Methylprednisolone 20 mg IV q.6. 8. Zofran 4 mg IV q.6 p.r.n. 9. Normal saline at 100 mL/hr. Home medications in the past have included; 1. Benicar 40 mg once a day. 2. Hydrochlorothiazide 25 mg once a day. 3. Metformin 1000 mg p.o. b.i.d. 4. Glipizide XL 5 mg once a day. 5. Toprol-XL 50 mg tablet once a day. 6. Amlodipine 10 mg tablet once a day. PAST MEDICAL HISTORY: 1. Type-2 diabetes mellitus. 2. Hypertension. 3. Chronic renal failure secondary to diabetic/hypertensive nephropathy. 4. Recent diagnosis of diastolic dysfunction. 5. Recent diagnosis of pneumonia. PAST SURGICAL HISTORY: Status post section x1. SOCIAL HISTORY: The patient lives alone. She has 6 children and [address] in [facility] [place]. No alcohol or smoking. No IV drug abuse. No blood transfusion. 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 No formal schooling. She is originally from [place] - she is . FAMILY HISTORY: No family history of ESRD. ALLERGIES: NONE. TRAUMA: None. IMMUNIZATIONS: Up to date. HOSPITALIZATIONS: Please see past medical history. PHYSICAL EXAMINATION: VITAL SIGNS: Blood pressure is 137/61 with a heart rate of 102, temperature 97.8, O2 sats 98%. GENERAL: The patient is awake and currently on BiPAP. SKIN: Adequate turgor. HEENT: She has pinkish, slightly pale conjunctivae. Anicteric sclerae. No neck mass. No carotid bruits. No JVD. CHEST: No deformities. LUNGS: Decreased breath sounds. HEART: Normal sinus rhythm. No murmur. No gallops. No rubs. ABDOMEN: Globular, soft, nontender. No masses. EXTREMITIES: No edema. No deformities. NEUROLOGICAL: Awake, alert, comfortable, not in overt distress. LABORATORY DATA: Laboratories of May 21, 2019; white count 14.2, hemoglobin 9.1. Sodium 135, potassium 4.3, chloride 95, carbon dioxide 24, BUN 51, creatinine 4.24, glucose 201, calcium 7.9. On May 20, 2019; creatinine 2.4. On May 19, 2019; creatinine 1.38. On May 18, 2019; creatinine 1.45. On May 17, 2019; creatinine is 1.17. On May 02, 2019; creatinine 0.98. Urinalysis of May 20, 2019; urine protein is 70, RBC 4-6, WBC 4-6, positive for pigmented granular casts, urine sodium is 26, urine creatinine is 74. On May 19, 2019; cardiac echo showed a normal EF of 55% to 60%. ASSESSMENT AND PLAN: 1. Acute kidney injury - consider superimposed acute tubular necrosis. Urine sediment showed pigmented granular casts. For the moment, continue supportive care. Continue to optimize hemodynamics. The patient has been diuresed recently and this could have also precipitated in the worsening of renal dysfunction. Currently, normal saline at 100 mL/hr has been started. Please note that the chest x-ray done on May 20, 2019, showed multifocal pneumonia. There is no indication for an emergent hemodialysis with this patient. Continue supportive care. 2. Chronic renal failure - most likely underlying diabetic nephropathy in view of the longstanding history of diabetes mellitus as well as proteinuria. 3. Acute respiratory failure, currently on BiPAP. Pulmonary is following. As previously mentioned, no indication for any emergency dialysis with this patient. Continue supportive care. Recheck basic metabolic panel, CBC in a.m. Thank you for the consult. We will continue to follow. Job ID: [id number] [facility] SYSTEM[facility]
[2019-05-21 14:39] LABS: Vancomycin, Trough 31.1 ug/mL
--- NOTE | 2019-05-21 15:11 | PRG ---
DATE OF SERVICE: 05/21/2019 SUBJECTIVE: Ms. Talley continues with the BiPAP. OBJECTIVE: VITAL SIGNS: Her blood pressure 138/58, pulse 100 and sinus. LUNGS: Clear anteriorly and laterally. CARDIAC: Normal S1, normal S2. ABDOMEN: Soft, nontender. ASSESSMENT: 1. Multifocal pneumonia. 2. Renal failure with creatinine 4.24. 3. History of diastolic heart failure and unfortunately she goes into heart failure very easily. 4. History of hypertension. 5. No obstructive coronary artery disease. PLAN: 1. She is on normal saline 100 mL an hour. We will reduce it to 60 mL an hour at 6 p.m. 2. Continue to monitor urine output. 3. Continue blood pressure medicines, unchanged. Dr. Piña will be available this week and this weekend. Job ID: [id number]
[2019-05-21] MEDS ORDERED: Vancomycin HCl 500 MG in Sodium Chloride 0.9% 100 ML IVPB PRN (15:15)
[2019-05-21] MEDS: Sodium Chloride 0.9% 1,000 ML IV SCH (17:28)
--- NOTE | 2019-05-21 18:35 | PDOC.HOSPP ---
- Subjective Encounter Date: 05/21/19 Encounter Time: 11:33 Subjective: 64 y/o female with diastolic HF, HTN, DM, and recent hospitalization for multifocal pneumonia between 04/28 and 05/04 readmitted with worsening SOB and hypoxia. Treated with BIPAP and diuretic as well as IV antibiotics with improvement. Developed worsening SOB/respiratory distress several hours after transfer to floor and was returned to IMCU and restarted on BIPAP. Also found to have positive gram positive blood culture hence started on IV vancomycin. Oliguric overnight. Still requiring BIPAP. - Objective Vital Signs & Weight: Vital Signs (12 hours) Temp Pulse BP Pulse Ox 05/21/19 16:00 97.0 F L 05/21/19 15:58 101 H 133/63 05/21/19 14:37 101 H 05/21/19 12:23 103 H 05/21/19 11:10 102 H 05/21/19 10:26 98.3 F 05/21/19 09:30 102 H 143/59 H 05/21/19 09:29 102 H 143/57 H 05/21/19 08:00 96 05/21/19 07:30 102 H 05/21/19 07:17 97.8 F Weight Weight 142 lb 5 oz Most Recent Monitor Data Heart Rate from ECG 99 NIBP 141/61 NIBP BP-Mean 87 Respiration from ECG 29 SpO2 94 I&O: 05/20/19 05/21/19 05/22/19 06:59 06:59 06:59 Intake Total 250 660 823 Output Total 550 250 0 Balance -300 410 823 Result Diagrams: 05/21/19 03:23 05/21/19 03:23 Additional Labs: Accuchecks 05/21/19 05/21/19 05/21/19 16:19 10:14 06:09 POC Glucose 249 H 237 H 230 H 05/20/19 05/19/19 21:12 16:17 POC Glucose 189 H 316 H Hospitalist ROS - Medication Medications: Active Medications Generic Name Dose Route Start Last Admin Trade Name Freq PRN Reason Stop Dose Admin Acetaminophen 1,000 mg 05/19/19 04:06 05/20/19 17:33 Tylenol PO 1,000 mg Q6H PRN Administration Mild Pain (1-3) Albuterol/Ipratropium 3 ml 05/20/19 13:00 05/21/19 12:22 Duoneb NEB 3 ml [id number] LENNY Administration Amlodipine Besylate 10 mg 05/19/19 09:00 05/21/19 09:29 Norvasc PO 10 mg DAILY LENNY Administration Aspirin 81 mg 05/19/19 09:00 05/21/19 09:30 Aspirin Chewable PO 81 mg DAILY LENNY Administration Carvedilol 12.5 mg 05/20/19 21:00 05/21/19 09:30 Coreg PO 12.5 mg BID LENNY Administration Famotidine 20 mg 05/19/19 09:00 05/21/19 09:29 Pepcid SLOW IVP 20 mg DAILY LENNY Administration Hydralazine HCl 50 mg 05/19/19 09:00 05/21/19 15:58 Apresoline PO 50 mg TID LENNY Administration Cefepime HCl 2 gm/ Sodium 100 mls @ 200 mls/hr 05/21/19 01:00 05/21/19 01:53 Chloride IVPB 100 mls 0100 LENNY Administration Levofloxacin 750 mg/ Device 150 mls @ 100 mls/hr 05/20/19 12:00 05/20/19 12: 17 IVPB 150 mls Q2D LENNY Administration Sodium Chloride 1,000 mls @ 60 mls/hr 05/21/19 18:00 05/21/19 17:28 Normal Saline 0.9% IV 1,000 mls .[id number] LENNY Administration Insulin Human Lispro 0 units 05/19/19 04:06 05/21/19 17:29 Humalog SC 4 unit .MODERATE SLIDING SC PRN Administration Moderate Correctional Scale Insulin Human Lispro 0 units 05/19/19 04:06 05/19/19 19:21 Humalog SC 3 unit .BEDTIME SLIDING SC PRN Administration Bedtime Correctional Scale Methylprednisolone Sodium Succinate 20 mg 05/20/19 12:00 05/21/19 17:26 Solu-Medrol IVP 20 mg Q6HR LENNY Administration - Exam General Appearance: awake alert General - other findings: mild respiratory distress Eye: anicteric sclera ENT: normocephalic atraumatic Neck: symmetric, no JVD Heart: RRR Respiratory: tachypneic Respiratory - other findings: decreased air movement especially at the bases with some transmitted sound Gastrointestinal: soft, non-tender, non-distended, normal bowel sounds Extremities: no edema Neurological: cranial nerve grossly intact Psychiatric: A&O x 3 Hosp A/P (1) Acute respiratory failure with hypoxia Code(s): J96.01 - ACUTE RESPIRATORY FAILURE WITH HYPOXIA Status: Acute (2) Multifocal pneumonia Code(s): J18.9 - PNEUMONIA, UNSPECIFIED ORGANISM Status: Acute (3) YESY (acute kidney injury) Code(s): N17.9 - ACUTE KIDNEY FAILURE, UNSPECIFIED Status: Acute (4) Elevated troponin Code(s): R79.89 - OTHER SPECIFIED ABNORMAL FINDINGS OF BLOOD CHEMISTRY Status : Acute (5) Heart murmur Code(s): R01.1 - CARDIAC MURMUR, UNSPECIFIED Status: Acute (6) Bilateral pulmonary infiltrates on CXR Code(s): R91.8 - OTHER NONSPECIFIC ABNORMAL FINDING OF LUNG FIELD Status: Acute (7) Diabetes mellitus Code(s): E11.9 - TYPE 2 DIABETES MELLITUS WITHOUT COMPLICATIONS Status: Acute (8) Acute on chronic diastolic (congestive) heart failure Code(s): I50.33 - ACUTE ON CHRONIC DIASTOLIC (CONGESTIVE) HEART FAILURE Status : Acute (9) Infection due to alpha-hemolytic Streptococcus Code(s): A49.1 - STREPTOCOCCAL INFECTION, UNSPECIFIED SITE Status: Acute (10) Mitral regurgitation Status: Acute (11) Pulmonary HTN Code(s): I27.20 - PULMONARY HYPERTENSION, UNSPECIFIED Status: Acute - Plan Continue antibiotics, bronchodilators and oxygen. Continue BIPAP Start IV fluid for YESY, volume depletion and oliguria follow renal function Cardiology and Pulm following. Consult Nephrology due to worsening renal function
[2019-05-22] MEDS: Cefepime 2 GM in Sodium Chloride 0.9% 100 ML IVPB SCH (01:40)
[2019-05-22] MEDS: methylPREDNISolone Sod Succ 40 MG VIAL IVP SCH ×4 (01:41→17:28)
[2019-05-22 03:49] LABS: #Basophils 0.1 thou/uL (0.0-0.2); #Lymphocytes 1.1 thou/uL (1.20-3.40); #Monocytes 1.1 thou/uL (0.11-0.59); %Basophils 0.4 % (0.0-1.0); %Eosinophils 0.1 % (0.0-10.0); %Lymphocytes 7.7 % (21.0-51.0); %Monocytes 7.8 % (0.0-10.0); Mean Corpuscular HGB CONC 32.9 g/dL (32.0-36.0); Mean Corpuscular Hemoglobin 30.7 pg (27.0-31.0); Mean Corpuscular Volume 93.4 fL (78.0-98.0); Mean Platelet Volume 8.8 fL (7.4-10.4); Platelet Count 276 thou/uL (130-400); RBC Distribution Width 11.8 % (11.5-14.5); Red Blood Cell (RBC) Count 2.92 mill/uL (4.20-5.40); White Blood Cell (WBC) Count 14.3 thou/uL (4.8-10.8)
[2019-05-22 04:10] LABS: Anion Gap 22 mmol/L (10-20); BUN (Urea Nitrogen) 75 mg/dL (9.8-20.1); Calc. Creatinine Clearance 10 mL/min (70-130); Calcium 7.4 mg/dL (7.8-10.44); Carbon Dioxide 20 mmol/L (23-31); Chloride 98 mmol/L (98-107); Estimated GFR-MDRD 7; Glucose 218 mg/dL (80-115); Potassium 4.7 mmol/L (3.5-5.1); Sodium 135 mmol/L (136-145)
[2019-05-22] MEDS: HumaLOG 300 UNITS/3 ML VIAL SC PRN ×3 (06:09→17:28)
--- NOTE | 2019-05-22 08:42 | RAD ---
Frontal view chest Comparison 05/20/2019 CLINICAL HISTORY: Dyspnea FINDINGS: Redemonstration of enlarged cardiac silhouette, engorged pulmonary vasculature, and bilater al interstitial and alveolar opacities. No significant interval change. IMPRESSION: Redemonstration of bilateral pulmonary parenchymal opacities, predominantly perihilar in distribution, and are superimposed upon enlarged cardiac silhouette and prominent pulmonary vasculature. Findings may relate to decompensated CHF. Correlate clinically.
[2019-05-22] MEDS ORDERED: Heparin 10,000 UNITS/1 ML VIAL ONE (09:33)
--- NOTE | 2019-05-22 09:47 | PRG ---
DATE OF SERVICE: 05/22/2019 SUBJECTIVE: Michael is a 64-year-old female, seen by the Renal Service for her acute kidney injury on top of her chronic renal failure. She has suspected underlying acute tubular necrosis. This may have been secondary to ischemic ATN secondary to over-diuresis, use of GEOVANY inhibitors/ARB with her in the past. She has not made any urine. A Duran catheter will be inserted. We will be observing this patient for the next 24 hours and if there is no significant improvement, we may need to consider hemodialysis. Case discussed with Dr. Chaudhary as well as with the family. Continue supportive care. OBJECTIVE: VITAL SIGNS: Blood pressure is 127/63, heart rate 88, and temperature 96.6. GENERAL: The patient is awake, on BiPAP, not in overt distress. SKIN: Adequate turgor. HEENT: She has slightly pale conjunctivae. Anicteric sclerae. NECK: No neck mass. No carotid bruits. No JVD. CHEST: No deformities. LUNGS: Clear. Decreased breath sounds. HEART: Normal sinus rhythm. No murmur. No gallops. No rubs. ABDOMEN: Globular, soft, nontender. No masses. MEDICATIONS: Medications of May 22, 2019 were reviewed. LABORATORY DATA: Laboratories of May 22, 2019; white count 14.3 and hemoglobin 9. Sodium 135, potassium 4.7, chloride 98, carbon dioxide 20, BUN 75, creatinine 5.95, glucose 218, and calcium 7.4. ASSESSMENT AND PLAN: 1. Acute kidney injury on top of her chronic renal failure - creatinine noted at 5.95, which has worsened in the last few days. She may be nearing dialysis intervention. We will continue to observe her for one more day and if no significant improvement, consider starting hemodialysis in a.m. 2. Shortness of breath, multifactorial etiology. Previous cardiac workup was negative. She does have interstitial infiltrates. She has also been treated for a possible concomitant pneumonia per se. Underlying congestive heart failure still remains with this patient. ? of diastolic dysfunction. 3. Continue supportive care. Job ID: [id number]
[2019-05-22] MEDS: hydrALAZINE 25 MG TAB PO SCH ×3 (10:55→21:01)
[2019-05-22] MEDS: Amlodipine 10 MG TAB PO SCH (10:55)
[2019-05-22] MEDS: Carvedilol 25 MG TAB PO SCH ×2 (10:55→21:01)
[2019-05-22] MEDS: Famotidine/PF 20 mg/2ml Vial SLOW IVP SCH (10:56)
[2019-05-22] MEDS: Sodium Chloride 0.9% 1,000 ML IV SCH (10:56)
[2019-05-22] MEDS: Aspirin Chewable 81 MG TAB PO SCH (10:56)
[2019-05-22 11:32] LABS: Vancomycin, Random 25.9 ug/mL (See Comment)
[2019-05-22] MEDS ORDERED: Zolpidem Tartrate 5 MG TAB PO PRN (14:15)
--- NOTE | 2019-05-22 14:26 | PDOC.HOSPP ---
- Subjective Encounter Date: 05/22/19 Encounter Time: 10:37 Subjective: 64 y/o female with diastolic HF, HTN, DM, and recent hospitalization for multifocal pneumonia between 04/28 and 05/04 readmitted with worsening SOB and hypoxia. Treated with BIPAP and diuretic as well as IV antibiotics with improvement. Developed worsening SOB/respiratory distress several hours after was transfered to floor and was returned to IMCU and restarted on BIPAP. Also found to have positive gram positive blood culture hence started on IV vancomycin. Anuric overnight. Still requiring BIPAP - Objective Vital Signs & Weight: Vital Signs (12 hours) Temp Pulse BP Pulse Ox 05/22/19 13:20 78 05/22/19 11:46 97.0 F L 05/22/19 10:55 88 127/60 05/22/19 08:00 94 L 05/22/19 07:34 96.6 F L 05/22/19 07:11 88 05/22/19 03:32 97.8 F Weight Weight 146 lb 9.6 oz Most Recent Monitor Data Heart Rate from ECG 79 NIBP 104/51 NIBP BP-Mean 68 Respiration from ECG 36 SpO2 88 I&O: 05/21/19 05/22/19 05/23/19 06:59 06:59 06:59 Intake Total 660 1656 Output Total 250 0 Balance 410 1656 Result Diagrams: 05/22/19 03:25 05/22/19 03:25 Additional Labs: Accuchecks 05/22/19 05/22/19 05/21/19 10:59 05:54 20:32 POC Glucose 200 H 243 H 219 H 05/21/19 16:19 POC Glucose 249 H Hospitalist ROS - Medication Medications: Active Medications Generic Name Dose Route Start Last Admin Trade Name Freq PRN Reason Stop Dose Admin Acetaminophen 1,000 mg 05/19/19 04:06 05/20/19 17:33 Tylenol PO 1,000 mg Q6H PRN Administration Mild Pain (1-3) Albuterol/Ipratropium 3 ml 05/20/19 13:00 05/22/19 13:20 Duoneb NEB 3 ml [id number] LENNY Administration Amlodipine Besylate 10 mg 05/19/19 09:00 05/22/19 10:55 Norvasc PO 10 mg DAILY LENNY Administration Aspirin 81 mg 05/19/19 09:00 05/22/19 10:56 Aspirin Chewable PO 81 mg DAILY LENNY Administration Carvedilol 12.5 mg 05/20/19 21:00 05/22/19 10:55 Coreg PO 12.5 mg BID LENNY Administration Famotidine 20 mg 05/19/19 09:00 05/22/19 10:56 Pepcid SLOW IVP 20 mg DAILY LENNY Administration Hydralazine HCl 50 mg 05/19/19 09:00 05/22/19 10:55 Apresoline PO 50 mg TID LENNY Administration Cefepime HCl 2 gm/ Sodium 100 mls @ 200 mls/hr 05/21/19 01:00 05/22/19 01:40 Chloride IVPB 100 mls 0100 LENYN Administration Levofloxacin 750 mg/ Device 150 mls @ 100 mls/hr 05/20/19 12:00 05/22/19 11: 01 IVPB 150 mls Q2D LENNY Administration Sodium Chloride 1,000 mls @ 60 mls/hr 05/21/19 18:00 05/22/19 10:56 Normal Saline 0.9% IV 1,000 mls .[id number] LENNY Administration Insulin Human Lispro 0 units 05/19/19 04:06 05/22/19 10:57 Humalog SC 2 unit .MODERATE SLIDING SC PRN Administration Moderate Correctional Scale Insulin Human Lispro 0 units 05/19/19 04:06 05/21/19 21:23 Humalog SC 2 unit .BEDTIME SLIDING SC PRN Administration Bedtime Correctional Scale - Exam General Appearance: awake alert Eye: anicteric sclera ENT: dry oral mucosa Neck: symmetric, no JVD Heart: RRR Respiratory: no wheezes, no ronchi, tachypneic Respiratory - other findings: BIPAP transmitted breat sound noted.. Gastrointestinal: soft, non-tender, non-distended, normal bowel sounds Extremities: no cyanosis, no edema Neurological: cranial nerve grossly intact, no focal deficits Psychiatric: A&O x 3 Hosp A/P (1) Acute respiratory failure with hypoxia Code(s): J96.01 - ACUTE RESPIRATORY FAILURE WITH HYPOXIA Status: Acute (2) Multifocal pneumonia Code(s): J18.9 - PNEUMONIA, UNSPECIFIED ORGANISM Status: Acute (3) YESY (acute kidney injury) Code(s): N17.9 - ACUTE KIDNEY FAILURE, UNSPECIFIED Status: Acute (4) Elevated troponin Code(s): R79.89 - OTHER SPECIFIED ABNORMAL FINDINGS OF BLOOD CHEMISTRY Status : Acute (5) Heart murmur Code(s): R01.1 - CARDIAC MURMUR, UNSPECIFIED Status: Acute (6) Bilateral pulmonary infiltrates on CXR Code(s): R91.8 - OTHER NONSPECIFIC ABNORMAL FINDING OF LUNG FIELD Status: Acute (7) Diabetes mellitus Code(s): E11.9 - TYPE 2 DIABETES MELLITUS WITHOUT COMPLICATIONS Status: Acute (8) Acute on chronic diastolic (congestive) heart failure Code(s): I50.33 - ACUTE ON CHRONIC DIASTOLIC (CONGESTIVE) HEART FAILURE Status : Acute (9) Infection due to alpha-hemolytic Streptococcus Code(s): A49.1 - STREPTOCOCCAL INFECTION, UNSPECIFIED SITE Status: Acute (10) Mitral regurgitation Status: Acute (11) Pulmonary HTN Code(s): I27.20 - PULMONARY HYPERTENSION, UNSPECIFIED Status: Acute - Plan Insert biggs catheter for I/O Give 500 cc of NS Continue antibiotics, bronchodilators and oxygen. Continue BIPAP Get CT chest without contrast Cardiology, Pulmonary and Nephrology following.
[2019-05-22] MEDS ORDERED: Sodium Chloride 0.9% 500 ML IV SCH (14:30)
--- NOTE | 2019-05-22 14:43 | PRG ---
DATE OF SERVICE: 05/22/2019 SUBJECTIVE: This patient continues to require BiPAP. She says she is not feeling better. She is concerned about her lack of sleep. OBJECTIVE: VITAL SIGNS: Her temperature is 97.0, pulse 79, blood pressure 104/51, and O2 saturation in the high 80s to low 90s on the BiPAP. HEENT: Unremarkable. NECK: No adenopathy or JVD. LUNGS: Crackles at the bases. CARDIAC: S1 and S2, regular. ABDOMEN: Soft. EXTREMITIES: No edema. LABORATORY DATA: Sodium 135, potassium 4.7, BUN 75, creatinine 5.9, and glucose 218. White blood cell count 14.3, hematocrit 27.3, and platelet count 276. X-ray continues to show bilateral infiltrates. ASSESSMENT: Bilateral infiltrates, which I doubt are from pneumonitis. Originally, I thought this was from congestive heart failure, now I am thinking given concurrent development of renal failure that this could be from vasculitis. PLAN: I discussed with Dr. Pisano. I agree that the patient probably needs to be dialyzed. In the interim, I am going to send off serologies to evaluate for vasculitis. I am going to go up on the steroid dose. Continue BiPAP for now with low threshold for intubation. The patient's prognosis is guarded. Discussed with family. Job ID: [id number]
--- NOTE | 2019-05-22 17:56 | PDOC.CPN ---
- Subjective Date: 05/22/19 Time: 18:03 Interval history: The pt seen and examined. No overnight events. No cardiac complaints. She is on Bipap - Objective Allergies/Adverse Reactions: Allergies Allergy/AdvReac Type Severity Reaction Status Date / Time No Known Drug Allergies Allergy Verified 04/28/19 02:29 Visit Medications: Current Medications Acetaminophen (Tylenol) 1,000 mg PO Q6H PRN PRN Reason: Mild Pain (1-3) Last Admin: 05/20/19 17:33 Dose: 1,000 mg Albuterol/Ipratropium (Duoneb) 3 ml NEB [id number] [facility] Last Admin: 05/22/19 13:20 Dose: 3 ml Amlodipine Besylate (Norvasc) 10 mg PO DAILY [facility] Last Admin: 05/22/19 10:55 Dose: 10 mg Aspirin (Aspirin Chewable) 81 mg PO DAILY [facility] Last Admin: 05/22/19 10:56 Dose: 81 mg Carvedilol (Coreg) 12.5 mg PO BID [facility] Last Admin: 05/22/19 10:55 Dose: 12.5 mg Dextrose/Water (Dextrose 50%) 25 gm SLOW IVP PRN PRN PRN Reason: Hypoglycemia Famotidine (Pepcid) 20 mg SLOW IVP DAILY [facility] Last Admin: 05/22/19 10:56 Dose: 20 mg Glucagon (Glucagon) 1 mg IM PRN PRN PRN Reason: Hypoglycemia Hydralazine HCl (Apresoline) 10 mg SLOW IVP Q4H PRN PRN Reason: SBP > 180 and HR < 70 Hydralazine HCl (Apresoline) 50 mg PO TID [facility] Last Admin: 05/22/19 16:40 Dose: Not Given Dextrose/Water (D5w) 1,000 mls @ 0 mls/hr IV .Q0M PRN PRN Reason: Hypoglycemia Cefepime HCl 2 gm/ Sodium (Chloride) 100 mls @ 200 mls/hr IVPB 0100 [facility] Last Admin: 05/22/19 01:40 Dose: 100 mls Levofloxacin 750 mg/ Device 150 mls @ 100 mls/hr IVPB Q2D [facility] Last Admin: 05/22/19 11:01 Dose: 150 mls Sodium Chloride (Normal Saline 0.9%) 1,000 mls @ 60 mls/hr IV .[id number] [facility] Last Admin: 05/22/19 10:56 Dose: 1,000 mls Vancomycin HCl 500 mg/ Sodium (Chloride) 100 mls @ 100 mls/hr IVPB PRN PRN PRN Reason: DOSE BY LEVELS Insulin Human Lispro (Humalog) 0 units SC .MODERATE SLIDING SC PRN PRN Reason: Moderate Correctional Scale Last Admin: 05/22/19 17:28 Dose: 4 unit Insulin Human Lispro (Humalog) 0 units SC .BEDTIME SLIDING SC PRN PRN Reason: Bedtime Correctional Scale Last Admin: 05/21/19 21:23 Dose: 2 unit Labetalol HCl (Normodyne) 20 mg SLOW IVP Q4H PRN PRN Reason: SBP > 180 and HR >/= 70 Methylprednisolone Sodium Succinate (Solu-Medrol) 60 mg IVP Q6HR [facility] Last Admin: 05/22/19 17:28 Dose: 60 mg Miscellaneous Medication (Pharmacy To Dose) 1 each IVPB PRN PRN PRN Reason: Pharmacy to dose Ondansetron HCl (Zofran Odt) 4 mg PO Q6H PRN PRN Reason: Nausea/Vomiting Ondansetron HCl (Zofran) 4 mg IVP Q6H PRN PRN Reason: Nausea/Vomiting Zolpidem Tartrate (Ambien) 5 mg PO HSPRN PRN PRN Reason: Insomnia Vital Signs & Weight: Vital Signs Temp Pulse BP Pulse Ox 05/22/19 16:40 78 05/22/19 15:19 96.4 F L 05/22/19 13:20 78 05/22/19 11:46 97.0 F L 05/22/19 10:55 88 127/60 05/22/19 08:00 94 L 05/22/19 07:34 96.6 F L 05/22/19 07:11 88 Weight 146 lb 9.6 oz - Physical Exam General: alert & oriented x3 HEENT: mucus membranes moist Neck: supple neck Cardiac: regular rate and rhythm, S1/S2 Lungs: decreased breath sounds - Labs Result Diagrams: 05/22/19 03:25 05/22/19 03:25 Troponin/CKMB CK-MB (CK-2) 0.4 ng/mL (0-6.6) 05/18/19 23:20 Troponin I 0.179 ng/mL (< 0.028) H 05/19/19 10:48 - Telemetry Sinus rhythms and dysrhythmias: sinus rhythm - Assessment/Plan Assessment/Plan: 1. Acute on Chronic Distolic HF with Grade II diastolic dysfunction - On Bipap; Norvasc will be stopped and increase Coreg to 25mg BID for CHF management; may need start Isosorbide for diastolic HF management 2. YESY on CKD - managed by Dr Pisano; possible HD in a few days; on NS 60ml/h 3. Multifocal pneumonia - on ABX 4. HTN - stable with current med 5. DM type 2 - 6. Pulmonary HTN with PASP 58mmHg MAR reviewed * Echo on 05/19/2019 with EF 55-60%, grade II dd, mild-mod dilated LA, mild-mod MR, mild TR, mod-severe PASP 58mmHg * Dr Gómez's pt Pt. seen and eval. by me. I agree with the A/P by the INSULATING MACHINE OPERATOR. She is still on the BiPAP mask and is somewhat tachypneic. Chest : no rales or rhonchi at this time. Continue present meds.
--- NOTE | 2019-05-22 18:14 | CON ---
DATE OF CONSULTATION: HISTORY OF PRESENT ILLNESS: Radha Talley is a 64-year-old [place] speaking only, but family speaks [place]ic. The patient has noted to have chronic kidney disease followed by Dr. Pisano. Admitted to initiate dialysis. She is fluid overloaded and dyspneic. Hemoglobin 9, white count 14, potassium 4.7, BUN 75, creatinine 5.95, and GFR 7. She apparently had normal BUN earlier this month, but has a long history of chronic kidney disease since indicator of this month with a slightly elevated creatinine. She has history of diabetes and hypertension. I am going to see her regarding placement of a hemodialysis catheter for urgent dialysis. Echocardiogram this hospitalization read by Dr. Gómez, 55% to 60% EF. LV size is normal. Urine output has been zero in the last 24 hours. ALLERGIES: NONE. SOCIAL HISTORY: Tobacco, none. Alcohol, none. MEDICATIONS: As outpatient; 1. Aspirin. 2. Demadex. 3. Crestor. 4. Amlodipine. 5. Metformin. 6. Hydralazine. 7. Glipizide. 8. Potassium. 9. Carvedilol 25 mg b.i.d. PAST SURGICAL HISTORY: Negative. PAST MEDICAL HISTORY: Hypertension, diabetes mellitus type 2, diastolic congestive heart failure, multiple focal pneumonia, severe sepsis in April 2019, and hyperlipidemia. PHYSICAL EXAMINATION: VITAL SIGNS: Height 5 feet 3 inches, 146 pounds, and 26 BMI. The patient is dyspneic on BiPAP, 96.4 degrees, 78, and 105/58. HEAD, EARS, EYES, NOSE, AND THROAT: Unremarkable. LUNGS: Clear to auscultation. CARDIAC: Regular rate and rhythm without murmur or gallop. ABDOMEN: Soft, obese, and nontender. IV left hand. EXTREMITIES: Unremarkable. Palpable radial pulses. ASSESSMENT AND PLAN: Acute renal failure superimposed on chronic kidney disease. Plan placement for hemodialysis Trialysis catheter right groin, preserve veins for IV access. Blood draws through temporary dialysis catheter port. Ultrasound vein mapping in both arms in case dialysis access needs in the future. Possible need of a cuffed tunneled dialysis catheter pending clinical outcome. We will follow Dr. Pisano. Job ID: [id number]
--- NOTE | 2019-05-22 21:18 | ULT ---
EXAM: US Vessel Mapping Dialysis Acc PROVIDED CLINICAL HISTORY: End-stage renal disease COMPARISON: None FINDINGS: Right (in millimeters): Brachial artery: 4.5 Radial artery: 2.8 Ulnar artery: 2 Right basilic: Proximal upper: 3.9 Mid upper: 4.0 Distal upper: 2.6 ACF: 3.8 Proximal lower: 1.2 Mid lower: 1.1 Distal lower: 0.6 Right cephalic Proximal upper: 1.7 Mid upper: 1.0 Distal upper: 0.7 ACF: 0.8 Proximal lower: 0.7 Mid lower: 1.1 Distal lower: 0.9 Left (in millimeters): Brachial artery: 5.8 Radial artery: 2.5 Ulnar artery: 1.9 Left basilic: Proximal upper: 3.7 Mid upper: 2.1 Distal upper: 1.8 ACF: 1.5 Proximal lower: 1.3 Mid lower: 1.3 Distal lower: 0.9 Left cephalic Proximal upper: 1.6 Mid upper: 1.4 Distal upper: 1.1 ACF: 1.5 Proximal lower: 1.1 Mid lower: 1.5 Distal lower: 1.1 IMPRESSION: Venous mapping as above.
[2019-05-23] MEDS ORDERED: Melatonin 3 MG TAB PO PRN (00:05)
[2019-05-23 00:08] LABS: HBSAg Index 0.17 S/CO (0-0.99); Hep B Surf Ag Non-Reactive S/CO (NonReactive)
[2019-05-23] MEDS: Cefepime 2 GM in Sodium Chloride 0.9% 100 ML IVPB SCH (00:31)
[2019-05-23] MEDS: methylPREDNISolone Sod Succ 40 MG VIAL IVP SCH ×4 (00:44→16:44)
[2019-05-23] MEDS: Sodium Chloride 0.9% 1,000 ML IV SCH (04:43)
[2019-05-23] MEDS: HumaLOG 300 UNITS/3 ML VIAL SC PRN ×2 (08:17→11:33)
--- NOTE | 2019-05-23 08:20 | RAD ---
EXAM: Single view of the chest HISTORY: Pneumonia COMPARISON: 05/22/2019 FINDINGS: Single view of the chest shows an enlarged but stable cardiomediastinal silhouette. There a re stable multifocal mixed infiltrates in the lungs. The bones are unremarkable. IMPRESSION: Stable exam
[2019-05-23 08:32] LABS: #Lymphocytes 0.8 thou/uL (1.20-3.40); #Monocytes 0.8 thou/uL (0.11-0.59); #Neutrophils 9.7 thou/uL (1.40-6.50); %Basophils 0.1 % (0.0-1.0); %Eosinophils 0.1 % (0.0-10.0); %Lymphocytes 7.2 % (21.0-51.0); %Monocytes 6.9 % (0.0-10.0); %Neutrophils 85.8 % (42.0-75.0); Hemoglobin 8.7 g/dL (12.0-16.0); Mean Corpuscular HGB CONC 33.2 g/dL (32.0-36.0); Mean Corpuscular Hemoglobin 31.4 pg (27.0-31.0); Mean Corpuscular Volume 94.7 fL (78.0-98.0); Mean Platelet Volume 9.1 fL (7.4-10.4); Platelet Count 250 thou/uL (130-400); Red Blood Cell (RBC) Count 2.76 mill/uL (4.20-5.40); White Blood Cell (WBC) Count 11.3 thou/uL (4.8-10.8)
[2019-05-23 08:55] LABS: Anion Gap 23 mmol/L (10-20); BUN (Urea Nitrogen) 80 mg/dL (9.8-20.1); Calc. Creatinine Clearance 10 mL/min (70-130); Carbon Dioxide 18 mmol/L (23-31); Chloride 98 mmol/L (98-107); Estimated GFR-MDRD 7; Glucose 227 mg/dL (80-115); Potassium 5.3 mmol/L (3.5-5.1); Sodium 134 mmol/L (136-145)
[2019-05-23] MEDS: hydrALAZINE 25 MG TAB PO SCH ×3 (09:23→21:46)
[2019-05-23] MEDS: Famotidine/PF 20 mg/2ml Vial SLOW IVP SCH (09:23)
[2019-05-23] MEDS: Aspirin Chewable 81 MG TAB PO SCH (09:24)
[2019-05-23] MEDS: Carvedilol 25 MG TAB PO SCH ×2 (09:24→16:43)
[2019-05-23] MEDS ORDERED: Heparin 10,000 UNITS/1 ML VIAL ONE (10:13)
--- NOTE | 2019-05-23 10:33 | PRG ---
DATE OF SERVICE: 05/23/2019 SUBJECTIVE: Ms. Mike Talley is a 64-year-old female, who was seen for acute kidney injury. Review of the urine sediment suggests she has superimposed acute tubular necrosis. Due to the worsening renal function as well as oliguria, we have decided to initiate dialysis last night with this patient. She is also noted to be in some degree of respiratory distress and currently on BiPAP. Chest x-ray shows multifocal mixed infiltrates in the lungs. The patient is scheduled to do a 2-hour hemodialysis this morning and we will max out fluid removal as tolerated by the patient. OBJECTIVE: VITAL SIGNS: Blood pressure is 126/84, heart rate is 90, respiratory rate 23, pulse ox is 95%. GENERAL: The patient is awake, in mild respiratory distress, can follow commands. SKIN: Adequate turgor. HEENT: She has slightly pale conjunctivae. Anicteric sclerae. No neck mass. No carotid bruits. No JVD. CHEST: No deformities. LUNGS: Harsh breath sounds. Positive for crackles. HEART: Normal sinus rhythm. No murmur. No gallops. No rubs. ABDOMEN: Globular, soft, nontender. No masses. EXTREMITIES: No edema. No deformities. MEDICATIONS: Medications of May 23, 2019 was reviewed. LABORATORY DATA: Laboratories of May 23, 2019 showed the following: White count 11.3, hemoglobin 8.7 sodium 134, potassium 5.3, chloride 98, carbon dioxide 18, BUN is 80, creatinine 6.08, GFR 7 mL/minute. Calcium is 7. ASSESSMENT AND PLAN: 1. Acute kidney injury secondary to ischemic acute tubular necrosis. Continue supportive care. Due to the progressive azotemia as well as markedly decreased urine output, hemodialysis has been initiated. We will do a 2-hour hemodialysis and we will attempt a minimum of 2 L fluid removal. We will then schedule her for another dialysis session tomorrow. 2. Acute respiratory failure. Multifocal etiology. Possibility of congestive heart failure as well as superimposed pneumonia remains. I did discuss the case with Dr. Campos and the patient will be ruled out for possible vasculitis. A lupus panel as well as ANCA measurements have been done. 3. Overall prognosis remains guarded. Job ID: [id number]
[2019-05-23 11:35] LABS: Vancomycin, Random 21.5 ug/mL (See Comment)
--- NOTE | 2019-05-23 14:56 | PDOC.HOSPP ---
- Subjective Subjective: Seen and examined. Patient requiring BiPAP therapy to maintain O2 saturation's. Daughter at bedside able to aid in history. Patient fell short of breath anytime she is off the BiPAP. No appetite. Not drinking much fluids. Patient with multifocal pneumonia and acute renal failure requiring in hemodialysis. Prognosis guarded. - Objective Vital Signs & Weight: Vital Signs (12 hours) Temp Pulse Resp BP Pulse Ox 05/23/19 13:10 87 05/23/19 13:08 87 30 H 94 L 05/23/19 10:32 97.6 F 05/23/19 09:23 90 126/84 05/23/19 08:00 93 L 05/23/19 07:37 90 05/23/19 07:34 90 33 H 95 05/23/19 07:15 97.8 F 05/23/19 04:15 98.1 F 05/23/19 04:10 85 93 L Weight Weight 146 lb 9.6 oz Most Recent Monitor Data Heart Rate from ECG 87 NIBP 119/54 NIBP BP-Mean 75 Respiration from ECG 29 SpO2 92 I&O: 05/22/19 05/23/19 05/24/19 06:59 06:59 06:59 Intake Total 1656 2980 Output Total 0 50 Balance 1656 2930 Result Diagrams: 05/23/19 08:05 05/23/19 08:05 Additional Labs: Accuchecks 05/23/19 05/23/19 05/23/19 10:21 08:15 05:52 POC Glucose 222 H 263 H 258 H 05/22/19 05/22/19 20:12 16:40 POC Glucose 198 H 214 H Radiology Reviewed by me: Yes Hospitalist ROS - Review of Systems All other systems reviewed; all pertinent +/- noted in HPI/Subj - Medication Medications: Active Medications Generic Name Dose Route Start Last Admin Trade Name Freq PRN Reason Stop Dose Admin Acetaminophen 1,000 mg 05/19/19 04:06 05/20/19 17:33 Tylenol PO 1,000 mg Q6H PRN Administration Mild Pain (1-3) Albuterol/Ipratropium 3 ml 05/20/19 13:00 05/23/19 13:08 Duoneb NEB 3 ml [id number] LENNY Administration Aspirin 81 mg 05/19/19 09:00 05/23/19 09:24 Aspirin Chewable PO 81 mg DAILY LENNY Administration Carvedilol 25 mg 05/23/19 08:00 05/23/19 09:24 Coreg PO 25 mg BID-WM LENNY Administration Famotidine 20 mg 05/19/19 09:00 05/23/19 09:23 Pepcid SLOW IVP 20 mg DAILY LENNY Administration Hydralazine HCl 50 mg 05/19/19 09:00 05/23/19 09:23 Apresoline PO 50 mg TID LENNY Administration Cefepime HCl 2 gm/ Sodium 100 mls @ 200 mls/hr 05/21/19 01:00 05/23/19 00:31 Chloride IVPB 100 mls 0100 LENNY Administration Levofloxacin 750 mg/ Device 150 mls @ 100 mls/hr 05/20/19 12:00 05/22/19 11: 01 IVPB 150 mls Q2D LENNY Administration Insulin Human Lispro 0 units 05/19/19 04:06 05/23/19 11:33 Humalog SC 4 unit .MODERATE SLIDING SC PRN Administration Moderate Correctional Scale Insulin Human Lispro 0 units 05/19/19 04:06 05/21/19 21:23 Humalog SC 2 unit .BEDTIME SLIDING SC PRN Administration Bedtime Correctional Scale Methylprednisolone Sodium Succinate 60 mg 05/22/19 18:00 05/23/19 11:34 Solu-Medrol IVP 60 mg Q6HR LENNY Administration Zolpidem Tartrate 5 mg 05/22/19 14:15 05/23/19 00:32 Ambien PO 5 mg HSPRN PRN Administration Insomnia - Exam General Appearance: ill appearing Eye: PERRL, anicteric sclera ENT: normocephalic atraumatic, moist mucosa Neck: supple, symmetric, no lymphadenopathy Heart: RRR, no murmur, no gallops, no rubs, normal peripheral pulses Respiratory: rales, rhonchi (moderate), wheezes (diffuse - moderate) Gastrointestinal: soft, non-tender, no guarding, no rigidity Extremities: 1+ LE edema Skin: no lesions, no rashes Neurological: cranial nerve grossly intact, normal sensation to touch, no focal deficits Musculoskeletal: generalized weakness Psychiatric: oriented to person, flat affect. negative: oriented to place, oriented to time Hosp A/P (1) YESY (acute kidney injury) Code(s): N17.9 - ACUTE KIDNEY FAILURE, UNSPECIFIED Status: Acute (2) Acute on chronic diastolic (congestive) heart failure Code(s): I50.33 - ACUTE ON CHRONIC DIASTOLIC (CONGESTIVE) HEART FAILURE Status : Acute (3) Acute respiratory failure with hypoxia Code(s): J96.01 - ACUTE RESPIRATORY FAILURE WITH HYPOXIA Status: Acute (4) Bilateral pulmonary infiltrates on CXR Code(s): R91.8 - OTHER NONSPECIFIC ABNORMAL FINDING OF LUNG FIELD Status: Acute (5) Diabetes mellitus Code(s): E11.9 - TYPE 2 DIABETES MELLITUS WITHOUT COMPLICATIONS Status: Acute (6) Elevated troponin Code(s): R79.89 - OTHER SPECIFIED ABNORMAL FINDINGS OF BLOOD CHEMISTRY Status : Acute (7) Heart murmur Code(s): R01.1 - CARDIAC MURMUR, UNSPECIFIED Status: Acute (8) Multifocal pneumonia Code(s): J18.9 - PNEUMONIA, UNSPECIFIED ORGANISM Status: Acute (9) Pulmonary HTN Code(s): I27.20 - PULMONARY HYPERTENSION, UNSPECIFIED Status: Acute (10) CHF exacerbation Code(s): I50.9 - HEART FAILURE, UNSPECIFIED Status: Acute - Plan Plan: Intermediate medical care floor, low threshold for intensive care unit pulmonary/critical-care consultation, recommendations appreciated nephrology consultation, recommendations are patient patient requiring BiPAP therapy to maintain O2 saturation's, low threshold for intubation new onset renal failure requiring hemodialysis volume overload multifocal pneumonia on appropriate antibiotic therapy, broad specturm ABX Bacteremia with streptococus 1/2 blood cultures - sensitivity not reported IV steroids for airway inflammation breathing treatments scheduled and as needed glucose control long and short acting insulin continue other home medications as able blood pressure control G.I. prophylaxis DVT prophylaxis disposition: prognosis guarded
--- NOTE | 2019-05-23 15:49 | PRG ---
DATE OF SERVICE: 05/23/2019 SERVICE: Pulmonary Medicine. INTERVAL HISTORY: The patient is doing fine from respiratory standpoint. She is still BiPAP dependent, though her oxygen requirements are decreasing slowly. She is on dialysis once again and tolerating that fairly well. Otherwise, there has been no interval change to her condition. She denies any fevers or overnight events. PHYSICAL EXAMINATION: VITAL SIGNS: Afebrile, pulse 87, blood pressure 119/54, respirations 29, saturation 92%, currently on BiPAP with 37% FiO2 and a PEEP of 7. GENERAL: The patient is awake and alert, in no apparent distress. LUNGS: She is tachypneic and has a little bit of paradoxical air movement. HEART: Normal rate, regular. ABDOMEN: Bowel sounds are positive. She is a little bit distended. There is no rebound or guarding, and she is soft, however. MUSCULOSKELETAL: No cyanosis or clubbing. There is trace 1+ pitting throughout. NEUROLOGIC: Grossly nonfocal. LABORATORY DATA: WBC 11.3, hemoglobin 8.7, and platelets 250,000. PH 7.46, pCO2 of 42, and pO2 of 52. Creatinine 6.0 and roughly stable, BUN 80, also stable. Potassium 5.3. Basic metabolic profile is otherwise unremarkable. Blood cultures growing alpha hemolytic streptococcus in 1/2. IMAGING: Chest x-ray demonstrates persistent multifocal infiltrates throughout bilateral lung real. It is a little worse in the left compared to the right. ASSESSMENT: 1. Acute hypoxic respiratory failure. 2. Pulmonary infiltrates. 3. Bacteremia, possibly secondary to Streptococcus. DISCUSSION AND PLAN: Serologies for vasculitides are currently pending. We will continue our supportive care including steroids and antibiotics, which have been recently initiated. Pulmonary/Critical Care will continue to follow. We will give her BiPAP breaks 3 times daily and increase as tolerated. Job ID: [id number] [facility]
[2019-05-24] MEDS: Cefepime 2 GM in Sodium Chloride 0.9% 100 ML IVPB SCH (01:01)
[2019-05-24] MEDS: methylPREDNISolone Sod Succ 40 MG VIAL IVP SCH ×4 (01:01→19:40)
[2019-05-24 04:25] LABS: #Lymphocytes 0.9 thou/uL (1.20-3.40); #Monocytes 0.7 thou/uL (0.11-0.59); #Neutrophils 7.2 thou/uL (1.40-6.50); %Basophils 0.5 % (0.0-1.0); %Eosinophils 0.1 % (0.0-10.0); %Lymphocytes 9.8 % (21.0-51.0); %Monocytes 7.6 % (0.0-10.0); Mean Corpuscular HGB CONC 33.6 g/dL (32.0-36.0); Mean Corpuscular Hemoglobin 30.6 pg (27.0-31.0); Mean Corpuscular Volume 91.2 fL (78.0-98.0); Mean Platelet Volume 9.2 fL (7.4-10.4); Platelet Count 207 thou/uL (130-400); RBC Distribution Width 11.9 % (11.5-14.5); Red Blood Cell (RBC) Count 2.61 mill/uL (4.20-5.40); White Blood Cell (WBC) Count 8.7 thou/uL (4.8-10.8)
[2019-05-24 04:28] LABS: Anion Gap 20 mmol/L (10-20); BUN (Urea Nitrogen) 67 mg/dL (9.8-20.1); Calc. Creatinine Clearance 11 mL/min (70-130); Calcium 7.7 mg/dL (7.8-10.44); Carbon Dioxide 21 mmol/L (23-31); Chloride 98 mmol/L (98-107); Estimated GFR-MDRD 8; Glucose 232 mg/dL (80-115); Sodium 134 mmol/L (136-145)
[2019-05-24 04:59] LABS: Vancomycin, Random 19.8 ug/mL (See Comment)
[2019-05-24] MEDS: HumaLOG 300 UNITS/3 ML VIAL SC PRN (06:07)
--- NOTE | 2019-05-24 08:00 | RAD ---
Chest AP view INDICATION: History of pneumonia COMPARISON: May 23, 2019 FINDINGS: Lungs:Perihilar airspace opacities persist Cardiac silhouette:Cardiomegaly is stable Pulmonary vasculature:Slightly prominent but stable Pleural spaces:Small bilateral pleural effusions persist Upper abdomen:No abnormality seen. Osseous structures: No acute osseous abnormality. Additional findings:None. IMPRESSION: Stable exam
[2019-05-24] MEDS: Aspirin Chewable 81 MG TAB PO SCH (08:49)
[2019-05-24] MEDS: hydrALAZINE 25 MG TAB PO SCH ×3 (08:49→20:52)
[2019-05-24] MEDS: Carvedilol 25 MG TAB PO SCH ×2 (08:49→17:20)
[2019-05-24] MEDS: Famotidine/PF 20 mg/2ml Vial SLOW IVP SCH (09:42)
--- NOTE | 2019-05-24 09:57 | PRG ---
DATE OF SERVICE: 05/24/2019 SUBJECTIVE: Ms. Mike Talley is a 64-year-old female, who is followed up by the Renal Service for her acute kidney injury secondary to an acute tubular necrosis. She has been initiated on dialysis due to the worsening renal function as well as volume overload. She has received dialysis in the last 2 days. We are planning to do a 3-hour hemodialysis, and we will max out fluid removal. No acute events noted last night. She does complain of insomnia. OBJECTIVE: VITAL SIGNS: Blood pressure 123/55, heart rate 82, respiratory rate 26, pulse ox 92%. GENERAL: Noted to be awake, comfortable, noted to be in BiPAP. SKIN: Adequate turgor. HEENT: She has slightly pale conjunctivae. Anicteric sclerae. NECK: No neck mass. No carotid bruits. No JVD. CHEST: No deformities. LUNGS: Decreased breath sounds. Occasional crackles. HEART: Normal sinus rhythm. No murmur. No gallops. No rubs. ABDOMEN: Globular, soft, and nontender. No masses. EXTREMITIES: No edema. No deformities. MEDICATIONS: Medications of May 24, 2019, were reviewed. LABORATORY DATA: Laboratories of May 24, 2019: White count 8.7, hemoglobin 8. Sodium 134, potassium 5, chloride 98, carbon dioxide 21, BUN 67, creatinine 5.35, glucose 232, calcium 7.7. Hepatitis B surface antigen negative. ANCA pending. KRISTI pending. ASSESSMENT AND PLAN: 1. Acute kidney injury - secondary to presumed acute tubular necrosis. Awaiting serology workup for a possible glomerulonephritis. Continuing daily hemodialysis with this patient. Maxing out fluid removal as tolerated. 2. Pneumonia - on empiric IV antibiotics. 3. Overall, prognosis remains guarded. Job ID: [id number]
--- NOTE | 2019-05-24 11:25 | OP ---
DATE OF PROCEDURE: 05/19/2019 PREOPERATIVE DIAGNOSES: 1. Acute superimposed on chronic renal failure. 2. Diabetes. 3. Hypertension. 4. Obesity. POSTOPERATIVE DIAGNOSES: 1. Acute superimposed on chronic renal failure. 2. Diabetes. 3. Hypertension. 4. Obesity. PROCEDURE PERFORMED: Right femoral vein Trialysis catheter. ANESTHESIA: 1% Xylocaine. DESCRIPTION OF PROCEDURE: With the patient at bedside, right groin was clipped of hair, prepared with ChloraPrep, and draped in routine fashion. Local anesthetic with 1% Xylocaine was infiltrated in the skin and subcutaneous tissue. Seldinger technique used to place a Trialysis catheter. J-wire removed. Catheter secured with 2 interrupted sutures of 3-0 nylon. Sterile dressings applied. Each port aspirated blood, flushed with heparinized saline solution. Dialysis team called to initiate dialysis. Job ID: [id number]
--- NOTE | 2019-05-24 11:50 | PRG ---
DATE OF SERVICE: 05/24/2019 SUBJECTIVE: The patient continues on BiPAP. She is undergoing dialysis as I am dictating this note. Yesterday, took off 2 L, and the goal is to take off 2 more L today. OBJECTIVE: VITAL SIGNS: Her temperature is 98, blood pressure 123/55, O2 saturation 92% on BiPAP, FiO2 of 37%. HEENT: Unremarkable. NECK: No adenopathy or JVD. LUNGS: Coarse breath sounds. CARDIAC: S1 and S2. Regular. ABDOMEN: Soft. EXTREMITIES: No edema. IMAGING STUDIES: Chest x-ray shows no acute changes compared to before. ASSESSMENT: Bilateral pulmonary infiltrates indicative of edema versus alveolar hemorrhage syndrome. I think this is less likely pneumonia. LABORATORY DATA: Today show sodium 134, potassium 5, BUN 67, creatinine 5.4. White blood cell count 8.7, hematocrit 23.8, platelet count 207. PLAN: 1. Continue BiPAP as needed. 2. Continue high-dose steroids. 3. Await vasculitis panel. 4. Currently, receiving cefepime, Levaquin, and vancomycin. Since nothing has grown out in regard to Staphylococcus aureus, I think it is safe to go ahead and stop the vancomycin and the Levaquin. Job ID: [id number]
[2019-05-24 12:08] LABS: ANA Symphony (Qualitative) Negative (Negative); ANA Symphony (Quantitative) 0.4 Ratio (< 0.7 Negative); EliA RAS New Method **** NEW METHOD ****; EliA Thy New Method **** NEW METHOD ****; EliA Vaculitis New Method **** NEW METHOD ****; Mitochondrial Ab 1.1 U/mL (<4 Negative); Rheumatoid Factor IgA Antibody 4.3 IU/mL (<14 Negative); Rheumatoid Factor IgM Antibody Less than 0.5 IU/mL (<3.5 Negative); Thyroid Peroxidase IgG Ab 8.4 IU/mL (<25 Normal); dsDNA IgG Antibody 1.7 IU/mL (<10 Negative)
[2019-05-24 12:41] LABS: EliA Vaculitis New Method **** NEW METHOD ****; Glomerular Basemt Membrane Ab Less than 1.9 EliAU/mL (<7 Negative)
--- NOTE | 2019-05-24 14:43 | PDOC.HOSPP ---
- Subjective Subjective: Seen and examined. Patient not much improvement. Remains on BiPAP therapy. She is more alert and oriented knowing self, no she's in the hospital, and no situation. Yesterday she did not know the answer these questions. Patient not eating or drinking much as she is desaturate almost immediately off the BiPAP. Hemodialysis to be repeated again today, almost no urine output. - Objective Vital Signs & Weight: Vital Signs (12 hours) Temp Pulse Resp Pulse Ox 05/24/19 13:42 95 05/24/19 13:41 95 21 H 89 L 05/24/19 12:00 98.9 F 05/24/19 08:49 82 05/24/19 08:00 91 L 05/24/19 07:53 82 05/24/19 07:52 81 29 H 92 L 05/24/19 07:17 98 F 05/24/19 03:59 99.2 F 05/24/19 03:17 86 Weight Weight 146 lb 8 oz Most Recent Monitor Data Heart Rate from ECG 93 NIBP 146/57 NIBP BP-Mean 86 Respiration from ECG 22 SpO2 95 I&O: 05/23/19 05/24/19 05/25/19 06:59 06:59 06:59 Intake Total 2980 420 Output Total 50 2010 Balance 2930 -1590 Result Diagrams: 05/24/19 03:40 05/24/19 03:40 Additional Labs: Accuchecks 05/24/19 05/24/19 05/23/19 11:18 05:42 20:14 POC Glucose 161 H 260 H 160 H 05/23/19 16:22 POC Glucose 113 H Radiology Reviewed by me: Yes Hospitalist ROS - Review of Systems All other systems reviewed; all pertinent +/- noted in HPI/Subj - Medication Medications: Active Medications Generic Name Dose Route Start Last Admin Trade Name Freq PRN Reason Stop Dose Admin Acetaminophen 1,000 mg 05/19/19 04:06 05/20/19 17:33 Tylenol PO 1,000 mg Q6H PRN Administration Mild Pain (1-3) Albuterol/Ipratropium 3 ml 05/20/19 13:00 05/24/19 13:41 Duoneb NEB 3 ml [id number] LENNY Administration Aspirin 81 mg 05/19/19 09:00 05/24/19 08:49 Aspirin Chewable PO Not Given DAILY LENNY Carvedilol 25 mg 05/23/19 08:00 05/24/19 08:49 Coreg PO Not Given BID-WM LENNY Famotidine 20 mg 05/19/19 09:00 05/24/19 09:42 Pepcid SLOW IVP 20 mg DAILY LENNY Administration Hydralazine HCl 50 mg 05/19/19 09:00 05/24/19 08:49 Apresoline PO Not Given TID LENNY Insulin Human Lispro 0 units 05/19/19 04:06 05/24/19 06:07 Humalog SC 6 unit .MODERATE SLIDING SC PRN Administration Moderate Correctional Scale Insulin Human Lispro 0 units 05/19/19 04:06 05/21/19 21:23 Humalog SC 2 unit .BEDTIME SLIDING SC PRN Administration Bedtime Correctional Scale Methylprednisolone Sodium Succinate 60 mg 05/22/19 18:00 05/24/19 14:32 Solu-Medrol IVP 60 mg Q6HR LENNY Administration Zolpidem Tartrate 5 mg 05/22/19 14:15 05/23/19 00:32 Ambien PO 5 mg HSPRN PRN Administration Insomnia - Exam General Appearance: NAD, awake alert Eye: anicteric sclera ENT: normocephalic atraumatic, moist mucosa Neck: supple, symmetric, no lymphadenopathy Heart: no murmur, no gallops, no rubs Respiratory: no rales, rhonchi (moderate to severe), tachypneic, wheezes ( Severe all lung real) Gastrointestinal: soft, non-tender, non-distended, no guarding, no rigidity Extremities: no clubbing, no edema Skin: no lesions, no rashes Neurological: cranial nerve grossly intact, no focal deficits Musculoskeletal: generalized weakness Psychiatric: A&O x 3 Hosp A/P (1) YESY (acute kidney injury) Code(s): N17.9 - ACUTE KIDNEY FAILURE, UNSPECIFIED Status: Acute (2) Acute on chronic diastolic (congestive) heart failure Code(s): I50.33 - ACUTE ON CHRONIC DIASTOLIC (CONGESTIVE) HEART FAILURE Status : Acute (3) Acute respiratory failure with hypoxia Code(s): J96.01 - ACUTE RESPIRATORY FAILURE WITH HYPOXIA Status: Acute (4) Bilateral pulmonary infiltrates on CXR Code(s): R91.8 - OTHER NONSPECIFIC ABNORMAL FINDING OF LUNG FIELD Status: Acute (5) Diabetes mellitus Code(s): E11.9 - TYPE 2 DIABETES MELLITUS WITHOUT COMPLICATIONS Status: Acute (6) Elevated troponin Code(s): R79.89 - OTHER SPECIFIED ABNORMAL FINDINGS OF BLOOD CHEMISTRY Status : Acute (7) Heart murmur Code(s): R01.1 - CARDIAC MURMUR, UNSPECIFIED Status: Acute (8) Multifocal pneumonia Code(s): J18.9 - PNEUMONIA, UNSPECIFIED ORGANISM Status: Acute (9) Pulmonary HTN Code(s): I27.20 - PULMONARY HYPERTENSION, UNSPECIFIED Status: Acute (10) CHF exacerbation Code(s): I50.9 - HEART FAILURE, UNSPECIFIED Status: Acute - Plan Plan: Intermediate medical care floor, low threshold for intensive care unit pulmonary/critical-care consultation, recommendations appreciated nephrology consultation, recommendations are patient patient requiring BiPAP therapy to maintain O2 saturation's, low threshold for intubation new onset renal failure requiring hemodialysis volume overload multifocal pneumonia on appropriate antibiotic therapy, broad specturm ABX, agree with de escalation of ABX Bacteremia with streptococus 1/2 blood cultures - sensitivity not reported IV steroids for airway inflammation breathing treatments scheduled and as needed glucose control long and short acting insulin continue other home medications as able blood pressure control G.I. prophylaxis DVT prophylaxis disposition: prognosis guarded
--- NOTE | 2019-05-24 14:54 | PQF ---
JOSE HENSLEYROBERT WIGGINS [id number] CLINICAL DOCUMENTATION IMPROVEMENT CLARIFICATION FORM: ICD-10 Updated PLEASE DO AN ADDENDUM TO THE PROGRESS NOTE WITH ANY DOCUMENTATION UPDATES OR ADDITIONS AND CARRY THROUGH TO DC SUMMARY. THANK YOU. DATE: 05/24/2019, 05/25/2019 ATTN: DR. Mary ISLAS Please exercise your independent, professional judgment in responding to the clarification form. Clinical indicators are provided on the bottom of this form for your review. Please check appropriate box(es): [ XX ] Sepsis due to: (Pna, UTI, gangrenous gall bladder, etc.) Sepsis due to PNA [ ] Severe sepsis with acute organ dysfunction of: (Examples: respiratory failure, encephalopathy, acute kidney failure, other) [ ] Septic Shock [ ] Localized infection without sepsis [ ] Other diagnosis [ ] Unable to determine In addition, please specify: Present on Admission (POA): [ XX ] Yes [ ] No [ ] Unable to determine For continuity of documentation, please document condition throughout progress notes and discharge summary. Thank You. CLINICAL INDICATORS - SIGNS / SYMPTOMS / LABS / RESULTS AND LOCATION IN MR 05/18 WBC 16.7 05/20 WBC 13.4 05/21 WBC 14.2 05/22 WBC 14.3 05/23 WBC 11.3 05/19 UPON ARRIVAL TO ED PT WAS ON BIPAP FOR O2 SAT, PER EMS ON SCENE PT WAS WITH SATS IN MID 60'S. RESPIRATIONS 20-44 05/19 H&P (GIANNA) THE PT'S HISTORY IS SIGNIFICANT FOR RECENT ADMISSION, 2018 THROUGH 05/04/2019, FOR HYPOXIC RESP FAILURE, SEVERE SEPSIS DUE TO MULTIFOCAL PNEUMONIA WITH ASSOCIATED METABOLIC ENCEPHALOPATHY. 05/19 PN (OBI) POSSIBLE GRAM POSITIVE BACTEREMIA: CONTAMINANT IS A POSSIBILITY. 05/20-05/22 PN (OBI) A/P: INFECTION D/T ALPHA-HEMOLYTIC STREPTOCOCCUS 1/1 PN (ROSHAN) PLAN: BACTEREMIA WITH STREPTOCOCCUS 1/2 BLOOD CULTURES RISK: MULTIFOCAL PNEUMONIA, ACUTE RESP FAILURE W/ HYPOXIA, INFECTION D/T ALPHA- HEMOLYTIC STREPTOCOCCUS, RECENT HOSPITALIZATIONS WITH DX OF SEVERE SEPSIS (OBI/ PN) 05/20 TREATMENTS: SERIAL LABS (05/18-PRESENT) BLOOD CULTURES 05/18 CEFEPIME IV (05/19-PRESENT) THANK YOU! BK (This form is maintained as a part of the permanent medical record) 2014 [employer]. All Rights Reserved [email or web address] [phone] MTDD
--- NOTE | 2019-05-24 15:04 | PQF ---
JOSE HENSLEY ROBERT LOPEZ [id number] CLINICAL DOCUMENTATION IMPROVEMENT CLARIFICATION FORM: ICD-10 Updated PLEASE DO AN ADDENDUM TO THE PROGRESS NOTE WITH ANY DOCUMENTATION UPDATES OR ADDITIONS AND CARRY THROUGH TO DC SUMMARY. THANK YOU. DATE: 05/24/2019, 05/25/2019 ATTN:DR. Mary ISLAS Please exercise your independent, professional judgment in responding to the clarification form. Clinical indicators are provided on the bottom of this form for your review, Please check appropriate box(s): [ XX ] Hyponatremia please specify etiology, if known Acute tubular necrosis [ ] Hyponatremia due to SIADH (Syndrome of Inappropriate Secretion of Antidiuretic Hormone) [ ] Other diagnosis [ ] Unable to determine In addition, please specify: Present on Admission (POA): [ XX ] Yes [ ] No [ ] Unable to determine CLINICAL INDICATORS - SIGNS / SYMPTOMS / LABS / RESULTS AND LOCATION IN EMR LAB 05/18, 05/19 SODIUM 134 05/23, 05/24 SODIUM 134 RISK: HX DM, YESY 2/2 ISCHEMIC ACUTE TUBULAR NECROSIS (PN/ROBLES) 05/23 TREATMENTS: SERIAL LABS (06/18- PRESENT) NEPHROLOGY CONSULT (ROBLES / 06/21) DIALYSIS INITIATED (PN/ROBLES) 05/23 THANK YOU! BK (This form is maintained as a part of the permanent medical record) 2014 [employer] All Rights Reserved [email or web address] [phone] MTDD
--- NOTE | 2019-05-24 16:22 | PDOC.CPN ---
- Subjective Date: 05/24/19 Time: 16:22 Interval history: Currently on bipap. Sleeping on my evaluation but arousable. No angina. breathing unchanged. - Review of Systems General: denies: fever/chills, weight/appetite/sleep changes, night sweats, fatigue Respiratory: reports: cough, shortness of breath. denies: congestion, exercise intolerance Cardiovascular: denies: chest pain, palpitation, edema, paroxysmal nocturnal dyspnea, orthopnea Gastrointestinal: denies: nausea, vomiting, diarrhea, constipation, abd pain, GI bleeding Musculoskeletal: denies: pain, tenderness, stiffness, swelling, arthritis/ arthralgias Neurological: denies: numbness, syncope, seizure, weakness - Objective Allergies/Adverse Reactions: Allergies Allergy/AdvReac Type Severity Reaction Status Date / Time No Known Drug Allergies Allergy Verified 04/28/19 02:29 Visit Medications: Current Medications Acetaminophen (Tylenol) 1,000 mg PO Q6H PRN PRN Reason: Mild Pain (1-3) Last Admin: 05/20/19 17:33 Dose: 1,000 mg Albuterol/Ipratropium (Duoneb) 3 ml NEB [id number] [facility] Last Admin: 05/24/19 13:41 Dose: 3 ml Aspirin (Aspirin Chewable) 81 mg PO DAILY [facility] Last Admin: 05/24/19 08:49 Dose: Not Given Carvedilol (Coreg) 25 mg PO BID-WM [facility] Last Admin: 05/24/19 08:49 Dose: Not Given Dextrose/Water (Dextrose 50%) 25 gm SLOW IVP PRN PRN PRN Reason: Hypoglycemia Famotidine (Pepcid) 20 mg SLOW IVP DAILY [facility] Last Admin: 05/24/19 09:42 Dose: 20 mg Glucagon (Glucagon) 1 mg IM PRN PRN PRN Reason: Hypoglycemia Hydralazine HCl (Apresoline) 10 mg SLOW IVP Q4H PRN PRN Reason: SBP > 180 and HR < 70 Hydralazine HCl (Apresoline) 50 mg PO TID [facility] Last Admin: 05/24/19 08:49 Dose: Not Given Dextrose/Water (D5w) 1,000 mls @ 0 mls/hr IV .Q0M PRN PRN Reason: Hypoglycemia Cefepime HCl 1 gm/ Sodium (Chloride) 100 mls @ 100 mls/hr IVPB DAILY [facility] Insulin Human Lispro (Humalog) 0 units SC .MODERATE SLIDING SC PRN PRN Reason: Moderate Correctional Scale Last Admin: 05/24/19 06:07 Dose: 6 unit Insulin Human Lispro (Humalog) 0 units SC .BEDTIME SLIDING SC PRN PRN Reason: Bedtime Correctional Scale Last Admin: 05/21/19 21:23 Dose: 2 unit Labetalol HCl (Normodyne) 20 mg SLOW IVP Q4H PRN PRN Reason: SBP > 180 and HR >/= 70 Melatonin (Melatonin) 3 mg PO HS PRN PRN Reason: Insomnia Methylprednisolone Sodium Succinate (Solu-Medrol) 60 mg IVP Q6HR LENNY Last Admin: 05/24/19 14:32 Dose: 60 mg Ondansetron HCl (Zofran Odt) 4 mg PO Q6H PRN PRN Reason: Nausea/Vomiting Ondansetron HCl (Zofran) 4 mg IVP Q6H PRN PRN Reason: Nausea/Vomiting Zolpidem Tartrate (Ambien) 5 mg PO HSPRN PRN PRN Reason: Insomnia Last Admin: 05/23/19 00:32 Dose: 5 mg Vital Signs & Weight: Vital Signs Temp Pulse Resp Pulse Ox 05/24/19 13:42 95 05/24/19 13:41 95 21 H 89 L 05/24/19 12:00 98.9 F 05/24/19 08:49 82 05/24/19 08:00 91 L 05/24/19 07:53 82 05/24/19 07:52 81 29 H 92 L 05/24/19 07:17 98 F Weight 146 lb 8 oz - Physical Exam General: alert & oriented x3 HEENT: mucus membranes moist Neck: supple neck Cardiac: regular rate and rhythm Lungs: clear to auscultation Neuro: grossly intact Abdomen: active bowel sounds Extremities: no edema Musculoskeletal: no pain - Labs Result Diagrams: 05/24/19 03:40 05/24/19 03:40 Troponin/CKMB CK-MB (CK-2) 0.4 ng/mL (0-6.6) 05/18/19 23:20 Troponin I 0.179 ng/mL (< 0.028) H 05/19/19 10:48 - Telemetry Sinus rhythms and dysrhythmias: sinus rhythm - Assessment/Plan Assessment/Plan: 1. Acute on Chronic Diastolic heart failure. 2. YESY on CKD on HD now. 3. Multifocal pneumonia 4. HTN 5. DM type 2 6. Pulmonary HTN. 7. Acute hypoxic respiratory insufficiency. PLAN: - Tolerating HD, now day 3, slowly ramping up. - Continue current regimen otherwise.
[2019-05-25] MEDS: methylPREDNISolone Sod Succ 40 MG VIAL IVP SCH ×4 (00:46→20:32)
[2019-05-25 05:51] LABS: Anion Gap 23 mmol/L (10-20); BUN (Urea Nitrogen) 57 mg/dL (9.8-20.1); Calc. Creatinine Clearance 13 mL/min (70-130); Carbon Dioxide 21 mmol/L (23-31); Chloride 98 mmol/L (98-107); Estimated GFR-MDRD 10; Glucose 274 mg/dL (80-115); Potassium 4.6 mmol/L (3.5-5.1); Sodium 137 mmol/L (136-145)
[2019-05-25 05:57] LABS: #Lymphocytes 0.8 thou/uL (1.20-3.40); #Monocytes 0.5 thou/uL (0.11-0.59); #Neutrophils 6.3 thou/uL (1.40-6.50); %Basophils 0.1 % (0.0-1.0); %Eosinophils 0.1 % (0.0-10.0); %Lymphocytes 10.2 % (21.0-51.0); %Monocytes 6.8 % (0.0-10.0); %Neutrophils 82.9 % (42.0-75.0); Hemoglobin 10.8 g/dL (12.0-16.0); Mean Corpuscular HGB CONC 32.6 g/dL (32.0-36.0); Mean Corpuscular Hemoglobin 29.8 pg (27.0-31.0); Mean Corpuscular Volume 91.4 fL (78.0-98.0); Mean Platelet Volume 8.9 fL (7.4-10.4); Platelet Count 162 thou/uL (130-400); Red Blood Cell (RBC) Count 3.61 mill/uL (4.20-5.40); White Blood Cell (WBC) Count 7.6 thou/uL (4.8-10.8)
[2019-05-25] MEDS: HumaLOG 300 UNITS/3 ML VIAL SC PRN ×2 (06:19→11:19)
--- NOTE | 2019-05-25 08:15 | RAD ---
XR Chest 1 View Portable History: Pneumonia Comparison: Radiograph prior day Findings: Worsened airspace consolidation throughout the lungs. Moderate effusions. No pneumothorax. Dense calcifications of the transverse aorta. Impression: Progressive airspace opacification suggesting worsening pneumonia with enlarging effusion s.
[2019-05-25] MEDS ORDERED: methylPREDNISolone Sod Succ 40 MG VIAL IVP SCH (08:57)
[2019-05-25] MEDS ORDERED: Cefepime 1 GM in Sodium Chloride 0.9% 100 ML IVPB SCH (09:00)
--- NOTE | 2019-05-25 09:11 | PRG ---
DATE OF SERVICE: 05/25/2019 SUBJECTIVE: She feels better today. She has been weaned off the BiPAP to a high-flow nasal cannula. Despite that, her x-ray continues to look fairly bad with bilateral alveolar type infiltrates. OBJECTIVE: VITAL SIGNS: Her temperature is 98.9 with a T-max of 100.1, pulse 85, O2 saturation 95% on a high-flow oxygen at 40%. HEENT: Unremarkable. NECK: No adenopathy or JVD. LUNGS: Crackles bilaterally. CARDIAC: S1 and S2. Regular. ABDOMEN: Soft. EXTREMITIES: No edema. LABORATORY DATA: White blood cell count 7.6, hematocrit 33, and platelet count 162. Sodium 137, potassium 4.6, chloride 98, CO2 of 21, BUN 57, creatinine 4.5, glucose 274, so far her serologies look negative. Her ANCA is not back. ASSESSMENT: 1. 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 Given her lack of response to cefepime and Levaquin, I think we need to go ahead and extend her antibiotic coverage to include Staphylococcus aureus and antifungals. 2. Acute hypoxic respiratory failure. 3. Acute renal failure. PLAN: 1. Continue dialysis. 2. Add Mycamine and I will have pharmacy dose vancomycin. 3. I will go ahead and drop the steroid dose on today. 4. Continue to follow remainder of the serologies that are pending. 5. Discussed with family at bedside, answered the patient's questions. Job ID: [id number]
[2019-05-25] MEDS: Famotidine/PF 20 mg/2ml Vial SLOW IVP SCH (09:19)
[2019-05-25] MEDS ORDERED: Bacteriostatic Water 30 ML VIAL FS PRN (09:53)
[2019-05-25] MEDS ORDERED: Vancomycin HCl 500 MG in Sodium Chloride 0.9% 100 ML IVPB SCH (10:15)
[2019-05-25] MEDS ORDERED: Vancomycin Sliding Scale 1 EACH FS ONE (10:15)
[2019-05-25] MEDS ORDERED: Vancomycin HCl 750 MG in Sodium Chloride 0.9% 250 ML 250 ML IVPB SCH (10:15)
[2019-05-25] MEDS ORDERED: Vancomycin HCl 1 GM in Premix Bag 1 BAG IVPB SCH (10:15)
[2019-05-25] MEDS ORDERED: HOLD VANCOMYCIN FOR LEVEL >20 FS SCH (10:15)
[2019-05-25] MEDS ORDERED: Vancomycin HCl 250 MG in Sodium Chloride 0.9% 100 ML IVPB SCH (10:15)
[2019-05-25] MEDS: Carvedilol 25 MG TAB PO SCH ×2 (11:00→17:20)
[2019-05-25] MEDS: hydrALAZINE 25 MG TAB PO SCH ×3 (11:00→21:45)
[2019-05-25] MEDS: Aspirin Chewable 81 MG TAB PO SCH (11:00)
[2019-05-25] MEDS: Micafungin 100 MG in Sodium Chloride 0.9% 100 ML IVPB SCH (11:18)
[2019-05-25 11:22] LABS: Vancomycin, Random 15.5 ug/mL (See Comment)
--- NOTE | 2019-05-25 11:52 | PRG ---
DATE OF SERVICE: 05/25/2019 SUBJECTIVE: Ms. Mike Talley is a 64-year-old female, who was seen by the Renal Service for an acute kidney injury secondary to acute tubular necrosis. Hemodialysis has been initiated. Fluid removal has also been done. She is again scheduled for another dialytic intervention. My plan is to do a 4-hour hemodialysis with this patient with maximal fluid removal. Her breathing is actually improved. She is off BiPAP. OBJECTIVE: VITAL SIGNS: Blood pressure is noted at 135/58 with heart rate of 85, O2 saturation 95%, temperature 99.3. GENERAL: Awake, alert, comfortable, not in distress. SKIN: Adequate turgor. HEENT: Pinkish conjunctivae. Anicteric sclerae. NECK: No neck mass. No carotid bruits. No JVD. CHEST: No deformities. LUNGS: Clear breath sounds. HEART: Normal sinus rhythm. No murmur. No gallops. No rubs. ABDOMEN: Globular, soft, and nontender. No masses. EXTREMITIES: Trace edema. MEDICATIONS: Medications of May 25, 2019, were reviewed. LABORATORY DATA: Laboratories of May 25, 2019: White count 7.6, hemoglobin 10.8. Sodium 137, potassium 4.6, chloride 98, carbon dioxide 21, BUN 57, creatinine 4.52, glucose 274, calcium 8.0. ASSESSMENT AND PLAN: 1. Pneumonia - currently on IV antibiotics. Continue supportive care. ID is following. 2. Acute kidney injury/chronic renal failure - hemodialysis had been initiated secondary to her acute tubular necrosis. Again, maximizing fluid removal due to a component of congestive heart failure with this patient. She is much improved with her congestive heart failure. 3. Overall, agree with current management. Job ID: [id number]
[2019-05-25] MEDS ORDERED: Heparin 10,000 UNITS/1 ML VIAL ONE (12:10)
[2019-05-25 14:09] LABS: Cytoplasmic (C-ANCA) <1:20 titer (Neg:<1:20); Myeloperoxidase AutoAbs <9.0 U/mL (0.0-9.0); Perinuclear (P-ANCA) <1:20 titer (Neg:<1:20); Proteinase-3 AutoAbs Less than 3.5 U/mL (0.0-3.5)
--- NOTE | 2019-05-25 15:08 | PDOC.CPN ---
- Subjective Date: 05/25/19 Time: 15:06 Interval history: She is doing much better. Off BiPAP. - Review of Systems General: denies: fever/chills, weight/appetite/sleep changes, night sweats, fatigue Respiratory: reports: cough, shortness of breath. denies: congestion, exercise intolerance Cardiovascular: denies: chest pain, palpitation, edema, paroxysmal nocturnal dyspnea, orthopnea Gastrointestinal: denies: nausea, vomiting, diarrhea, constipation, abd pain, GI bleeding Musculoskeletal: denies: pain, tenderness, stiffness, swelling, arthritis/ arthralgias Neurological: denies: numbness, syncope, seizure, weakness - Objective Allergies/Adverse Reactions: Allergies Allergy/AdvReac Type Severity Reaction Status Date / Time No Known Drug Allergies Allergy Verified 04/28/19 02:29 Visit Medications: Current Medications Acetaminophen (Tylenol) 1,000 mg PO Q6H PRN PRN Reason: Mild Pain (1-3) Last Admin: 05/20/19 17:33 Dose: 1,000 mg Albuterol/Ipratropium (Duoneb) 3 ml NEB [id number] [facility] Last Admin: 05/25/19 13:26 Dose: 3 ml Aspirin (Aspirin Chewable) 81 mg PO DAILY [facility] Last Admin: 05/25/19 11:00 Dose: Not Given Carvedilol (Coreg) 25 mg PO BID-WM [facility] Last Admin: 05/25/19 11:00 Dose: Not Given Dextrose/Water (Dextrose 50%) 25 gm SLOW IVP PRN PRN PRN Reason: Hypoglycemia Famotidine (Pepcid) 20 mg SLOW IVP DAILY [facility] Last Admin: 05/25/19 09:19 Dose: 20 mg Glucagon (Glucagon) 1 mg IM PRN PRN PRN Reason: Hypoglycemia Heparin Sodium (Porcine) (Heparin Lock Flush 100 Units/Ml) 500 units IVF PRN PRN PRN Reason: Heparin Flush Last Admin: 05/25/19 06:22 Dose: 500 unit Hydralazine HCl (Apresoline) 10 mg SLOW IVP Q4H PRN PRN Reason: SBP > 180 and HR < 70 Hydralazine HCl (Apresoline) 50 mg PO TID [facility] Last Admin: 05/25/19 11:00 Dose: Not Given Dextrose/Water (D5w) 1,000 mls @ 0 mls/hr IV .Q0M PRN PRN Reason: Hypoglycemia Cefepime HCl 1 gm/ Sodium (Chloride) 100 mls @ 100 mls/hr IVPB DAILY [facility] Micafungin Sodium 100 mg/ (Sodium Chloride) 100 mls @ 100 mls/hr IVPB 1000 [facility] Last Admin: 05/25/19 11:18 Dose: 100 mls Vancomycin HCl 1 gm/ Device 200 mls @ 200 mls/hr IVPB WILLCALL [facility] Vancomycin HCl 750 mg/ Sodium (Chloride) 250 mls @ 250 mls/hr IVPB WILLCALL [facility] Vancomycin HCl 500 mg/ Sodium (Chloride) 100 mls @ 100 mls/hr IVPB WILLCALL LEN[facility] Vancomycin HCl 250 mg/ Sodium (Chloride) 100 mls @ 100 mls/hr IVPB WILLCALL [facility] Insulin Human Lispro (Humalog) 0 units SC .MODERATE SLIDING SC PRN PRN Reason: Moderate Correctional Scale Last Admin: 05/25/19 11:19 Dose: 2 unit Insulin Human Lispro (Humalog) 0 units SC .BEDTIME SLIDING SC PRN PRN Reason: Bedtime Correctional Scale Last Admin: 05/21/19 21:23 Dose: 2 unit Labetalol HCl (Normodyne) 20 mg SLOW IVP Q4H PRN PRN Reason: SBP > 180 and HR >/= 70 Melatonin (Melatonin) 3 mg PO HS PRN PRN Reason: Insomnia Methylprednisolone Sodium Succinate (Solu-Medrol) 40 mg IVP Q6HR [facility] Miscellaneous Medication (Pharmacy To Dose) 1 each IVPB .VANCOMYCIN PRN PRN Reason: Pharmacy to dose Hold Vancomycin For (Level >20) 0 each FS .AT DIALYSIS [facility] Ondansetron HCl (Zofran Odt) 4 mg PO Q6H PRN PRN Reason: Nausea/Vomiting Ondansetron HCl (Zofran) 4 mg IVP Q6H PRN PRN Reason: Nausea/Vomiting Sterile Water (Bacteriostatic Water) 1 ml FS PRN PRN PRN Reason: RECONSTITUTION Zolpidem Tartrate (Ambien) 5 mg PO HSPRN PRN PRN Reason: Insomnia Last Admin: 05/23/19 00:32 Dose: 5 mg Vital Signs & Weight: Vital Signs Temp Pulse Resp Pulse Ox 05/25/19 13:28 93 L 05/25/19 13:26 89 21 H 93 L 05/25/19 11:11 99.3 F 05/25/19 11:00 85 05/25/19 08:13 95 05/25/19 07:55 85 05/25/19 07:54 85 19 98 05/25/19 07:25 94 L 05/25/19 07:13 98.9 F 05/25/19 07:12 98.9 F 05/25/19 03:41 99.2 F Weight 146 lb 8 oz - Physical Exam General: no apparent distress HEENT: mucus membranes moist Neck: supple neck Cardiac: regular rate and rhythm Lungs: scattered rhonchi Neuro: grossly intact Abdomen: active bowel sounds Extremities: no edema Skin: clear Musculoskeletal: no pain - Labs Result Diagrams: 05/25/19 05:20 05/25/19 05:20 Troponin/CKMB CK-MB (CK-2) 0.4 ng/mL (0-6.6) 05/18/19 23:20 Troponin I 0.179 ng/mL (< 0.028) H 05/19/19 10:48 - Telemetry Sinus rhythms and dysrhythmias: sinus rhythm - Assessment/Plan Assessment/Plan: 1. Acute on Chronic Diastolic heart failure. 2. YESY on CKD on HD now. 3. Multifocal pneumonia 4. HTN 5. DM type 2 6. Pulmonary HTN. 7. Acute hypoxic respiratory insufficiency. PLAN: - Tolerating HD. - Continue current regimen. - CV stable. - On broad spectrum abx and anti fungals per pulmonary.
--- NOTE | 2019-05-25 15:27 | PDOC.HOSPP ---
- Subjective Subjective: Seen and examined. Patient clinically improved this a.m. Tolerated being weaned from BiPAP and now on highflown nasal cannula. Weaning steroids. Patient remains on broad-spectrum IV antibiotics and IV antifungals. Patient has poor oral intake I again recommended to patient and family that she needs to have improved oral intake and calories to regain her strength. Patient is profoundly weak. Patient remaining hemodialysis dependent, she is tolerating this well. Overall I'm very happy with the clinical progression. - Objective Vital Signs & Weight: Vital Signs (12 hours) Temp Pulse Resp Pulse Ox 05/25/19 15:16 99.4 F 05/25/19 13:28 93 L 05/25/19 13:26 89 21 H 93 L 05/25/19 11:11 99.3 F 05/25/19 11:00 85 05/25/19 08:13 95 05/25/19 07:55 85 05/25/19 07:54 85 19 98 05/25/19 07:25 94 L 05/25/19 07:13 98.9 F 05/25/19 07:12 98.9 F 05/25/19 03:41 99.2 F Weight Weight 146 lb 8 oz Most Recent Monitor Data Heart Rate from ECG 88 NIBP 140/60 NIBP BP-Mean 86 Respiration from ECG 31 SpO2 94 I&O: 05/24/19 05/25/19 05/26/19 06:59 06:59 06:59 Intake Total 420 140 Output Total 2009 1999 Balance -1590 -1860 Result Diagrams: 05/25/19 05:20 05/25/19 05:20 Additional Labs: Accuchecks 05/25/19 05/24/19 05/24/19 05:50 20:05 16:28 POC Glucose 286 H 221 H 207 H Radiology Reviewed by me: Yes Hospitalist ROS - Review of Systems All other systems reviewed; all pertinent +/- noted in HPI/Subj - Medication Medications: Active Medications Generic Name Dose Route Start Last Admin Trade Name Freq PRN Reason Stop Dose Admin Acetaminophen 1,000 mg 05/19/19 04:06 05/20/19 17:33 Tylenol PO 1,000 mg Q6H PRN Administration Mild Pain (1-3) Albuterol/Ipratropium 3 ml 05/20/19 13:00 01/03/20 13:26 Duoneb NEB 3 ml [id number] [facility] Administration Aspirin 81 mg 05/19/19 09:00 05/25/19 11:00 Aspirin Chewable PO Not Given DAILY [facility] Carvedilol 25 mg 05/23/19 08:00 05/25/19 11:00 Coreg PO Not Given BID-WM [facility] Famotidine 20 mg 05/19/19 09:00 05/25/19 09:19 Pepcid SLOW IVP 20 mg DAILY [facility] Administration Heparin Sodium (Porcine) 500 units 05/25/19 04:25 05/25/19 06:22 Heparin Lock Flush 100 Units/Ml IVF 500 unit PRN PRN Administration Heparin Flush Hydralazine HCl 50 mg 05/19/19 09:00 05/25/19 11:00 Apresoline PO Not Given TID [facility] Micafungin Sodium 100 mg/ 100 mls @ 100 mls/hr 05/25/19 10:00 05/25/19 11:18 Sodium Chloride IVPB 100 mls 1000 LENNY Administration Insulin Human Lispro 0 units 05/19/19 04:06 05/25/19 11:19 Humalog SC 2 unit .MODERATE SLIDING SC PRN Administration Moderate Correctional Scale Insulin Human Lispro 0 units 05/19/19 04:06 05/21/19 21:23 Humalog SC 2 unit .BEDTIME SLIDING SC PRN Administration Bedtime Correctional Scale Zolpidem Tartrate 5 mg 05/22/19 14:15 05/23/19 00:32 Ambien PO 5 mg HSPRN PRN Administration Insomnia - Exam General Appearance: ill appearing Eye: PERRL, anicteric sclera ENT: no oropharyngeal lesions, moist mucosa Neck: supple, symmetric, no lymphadenopathy Heart: no murmur, no gallops, no rubs Respiratory: no rales, normal chest expansion, rhonchi, wheezes (Improving) Gastrointestinal: soft, non-tender, no guarding, no rigidity Extremities: 1+ LE edema Skin: no lesions, no rashes Neurological: cranial nerve grossly intact, no focal deficits Musculoskeletal: generalized weakness Psychiatric: oriented to person, oriented to place, flat affect Hosp A/P (1) YESY (acute kidney injury) Code(s): N17.9 - ACUTE KIDNEY FAILURE, UNSPECIFIED Status: Acute (2) Acute on chronic diastolic (congestive) heart failure Code(s): I50.33 - ACUTE ON CHRONIC DIASTOLIC (CONGESTIVE) HEART FAILURE Status : Acute (3) Acute respiratory failure with hypoxia Code(s): J96.01 - ACUTE RESPIRATORY FAILURE WITH HYPOXIA Status: Acute (4) Bilateral pulmonary infiltrates on CXR Code(s): R91.8 - OTHER NONSPECIFIC ABNORMAL FINDING OF LUNG FIELD Status: Acute (5) Diabetes mellitus Code(s): E11.9 - TYPE 2 DIABETES MELLITUS WITHOUT COMPLICATIONS Status: Acute (6) Elevated troponin Code(s): R79.89 - OTHER SPECIFIED ABNORMAL FINDINGS OF BLOOD CHEMISTRY Status : Acute (7) Heart murmur Code(s): R01.1 - CARDIAC MURMUR, UNSPECIFIED Status: Acute (8) Multifocal pneumonia Code(s): J18.9 - PNEUMONIA, UNSPECIFIED ORGANISM Status: Acute (9) Pulmonary HTN Code(s): I27.20 - PULMONARY HYPERTENSION, UNSPECIFIED Status: Acute (10) CHF exacerbation Code(s): I50.9 - HEART FAILURE, UNSPECIFIED Status: Acute - Plan Plan: Intermediate medical care floor pulmonary/critical-care consultation, recommendations appreciated nephrology consultation, recommendations are patient Tolerating high flow NC, off bipap new onset renal failure requiring hemodialysis volume overload, improving multifocal pneumonia on appropriate antibiotic/ antifungal therapy Bacteremia with streptococus 1/2 blood cultures - sensitivity not reported IV steroids for airway inflammation, weaning breathing treatments scheduled and as needed glucose control long and short acting insulin continue other home medications as able blood pressure control G.I. prophylaxis DVT prophylaxis disposition: prognosis guarded
[2019-05-26] MEDS: methylPREDNISolone Sod Succ 40 MG VIAL IVP SCH ×4 (00:15→16:38)
[2019-05-26] MEDS: Acetaminophen 650 MG Suppository PR PRN (03:57)
[2019-05-26 04:15] LABS: #Lymphocytes 1.3 thou/uL (1.20-3.40); #Neutrophils 9.9 thou/uL (1.40-6.50); %Basophils 0.2 % (0.0-1.0); %Eosinophils 0.1 % (0.0-10.0); %Lymphocytes 10.8 % (21.0-51.0); %Monocytes 7.9 % (0.0-10.0); Hemoglobin 8.4 g/dL (12.0-16.0); Mean Corpuscular HGB CONC 33.1 g/dL (32.0-36.0); Mean Corpuscular Hemoglobin 30.1 pg (27.0-31.0); Platelet Count 170 thou/uL (130-400); Red Blood Cell (RBC) Count 2.79 mill/uL (4.20-5.40); White Blood Cell (WBC) Count 12.3 thou/uL (4.8-10.8)
[2019-05-26 04:39] LABS: Anion Gap 18 mmol/L (10-20); BUN (Urea Nitrogen) 37 mg/dL (9.8-20.1); Calc. Creatinine Clearance 19 mL/min (70-130); Calcium 8.1 mg/dL (7.8-10.44); Carbon Dioxide 25 mmol/L (23-31); Chloride 98 mmol/L (98-107); Estimated GFR-MDRD 15; Glucose 231 mg/dL (80-115); Potassium 4.4 mmol/L (3.5-5.1); Sodium 137 mmol/L (136-145)
[2019-05-26] MEDS: HumaLOG 300 UNITS/3 ML VIAL SC PRN ×3 (06:10→20:24)
[2019-05-26] MEDS: Famotidine/PF 20 mg/2ml Vial SLOW IVP SCH (07:41)
[2019-05-26] MEDS: hydrALAZINE 25 MG TAB PO SCH ×3 (07:42→20:23)
[2019-05-26] MEDS: Carvedilol 25 MG TAB PO SCH ×2 (07:42→16:39)
[2019-05-26] MEDS: Aspirin Chewable 81 MG TAB PO SCH (07:43)
[2019-05-26 08:36] LABS: Vancomycin, Random 15.9 ug/mL (See Comment)
--- NOTE | 2019-05-26 10:21 | PRG ---
DATE OF SERVICE: 05/26/2019 SUBJECTIVE: Ms. Mike Talley is a 64-year-old female, who was seen for her acute kidney injury secondary to an acute tubular necrosis. Currently undergoing hemodialysis. She did receive hemodialysis yesterday. Her breathing has much improved. No acute events noted last night. OBJECTIVE: VITAL SIGNS: Blood pressure 132/47, heart rate 79, respiratory rate 18, temperature 99.6. GENERAL: The patient is awake, alert, comfortable, not in distress. SKIN: Adequate turgor. HEENT: She has slightly pale conjunctivae. Anicteric sclerae. NECK: No neck mass. No carotid bruits. No JVD. CHEST: No deformities. LUNGS: Decreased breath sounds. HEART: Normal sinus rhythm. No murmurs. No gallops. No rubs. ABDOMEN: Globular, soft, nontender. EXTREMITIES: No edema. No deformities. MEDICATIONS: Of May 26 meds were reviewed. LABORATORY DATA: Laboratories of May 26, 2019: White count 12.2, hemoglobin 8.4. Sodium 137, potassium 4.4, chloride 98, carbon dioxide 25, BUN 37, creatinine 3.12, glucose 239, calcium 8.1. ASSESSMENT AND PLAN: 1. Acute kidney injury secondary to acute tubular necrosis, tolerating hemodialysis. Fluid removal has been done for the last several days. No dialysis today. We will re-evaluate in a.m. if she will need another dialytic intervention. 2. Pneumonia, currently on empiric IV antibiotics. 3. Please note that we did check the patient for vasculitis and report shows ANCA was negative. In addition, KRISTI screen was also negative. Overall, agree with current management. Job ID: [id number] [facility]
--- NOTE | 2019-05-26 10:27 | RAD ---
PORTABLE CHEST ONE VIEW: 05/26/2019 5:06 a.m. HISTORY: Pneumonia. COMPARISON: Exam from the previous day. FINDINGS: The heart size is stable. The aorta is tortuous. Air space consolidation in the lung real is again seen bilaterally without significant interval changes. Accompanying effusions are again noted. POS: [facility]
[2019-05-26] MEDS: Micafungin 100 MG in Sodium Chloride 0.9% 100 ML IVPB SCH (10:46)
--- NOTE | 2019-05-26 14:51 | PDOC.HOSPP ---
- Subjective Subjective: Seen and examined. Patient remains on highflown nasal cannula. Very weak. Not eating much. I again stress the importance of consuming calories to regain her strength. Family at bedside, questions were asked, all answered in detail. - Objective Vital Signs & Weight: Vital Signs (12 hours) Temp Pulse Resp BP Pulse Ox 05/26/19 13:28 80 19 93 L 05/26/19 08:00 99.6 F 99 05/26/19 07:42 84 141/53 H 05/26/19 07:20 84 19 98 05/26/19 06:10 99.9 F H 05/26/19 04:00 100.2 F H Weight Weight 146 lb 8 oz Most Recent Monitor Data Heart Rate from ECG 78 NIBP 126/60 NIBP BP-Mean 82 Respiration from ECG 17 SpO2 91 I&O: 05/25/19 05/26/19 05/27/19 06:59 06:59 06:59 Intake Total 140 397 Output Total 1999 9440 Balance -6397 -7943 Result Diagrams: 05/26/19 04:00 05/26/19 04:00 Additional Labs: Accuchecks 05/26/19 05/26/19 05/25/19 11:15 05:34 22:25 POC Glucose 303 H 242 H 161 H 05/25/19 05/25/19 17:02 10:45 POC Glucose 350 H 253 H Radiology Reviewed by me: Yes Hospitalist ROS - Review of Systems All other systems reviewed; all pertinent +/- noted in HPI/Subj - Medication Medications: Active Medications Generic Name Dose Route Start Last Admin Trade Name Freq PRN Reason Stop Dose Admin Acetaminophen 1,000 mg 05/19/19 04:06 05/20/19 17:33 Tylenol PO 1,000 mg Q6H PRN Administration Mild Pain (1-3) Acetaminophen 650 mg 05/26/19 03:53 05/26/19 03:57 Tylenol ND 650 mg Q6H PRN Administration Headache/Fever or Pain Albuterol/Ipratropium 3 ml 05/20/19 13:00 05/26/19 13:28 Duoneb NEB 3 ml [id number] [facility] Administration Aspirin 81 mg 05/19/19 09:00 05/26/19 07:43 Aspirin Chewable PO 81 mg DAILY [facility] Administration Carvedilol 25 mg 05/23/19 08:00 05/26/19 07:42 Coreg PO 25 mg BID-WM [facility] Administration Famotidine 20 mg 05/19/19 09:00 05/26/19 07:41 Pepcid SLOW IVP 20 mg DAILY [facility] Administration Heparin Sodium (Porcine) 500 units 05/25/19 04:25 05/26/19 04:01 Heparin Lock Flush 100 Units/Ml IVF 500 unit PRN PRN Administration Heparin Flush Hydralazine HCl 50 mg 05/19/19 09:00 05/26/19 07:42 Apresoline PO 50 mg TID [facility] Administration Micafungin Sodium 100 mg/ 100 mls @ 100 mls/hr 05/25/19 10:00 05/26/19 10:46 Sodium Chloride IVPB 100 mls 1000 LENNY Administration Vancomycin HCl 250 mg/ Sodium 100 mls @ 100 mls/hr 05/25/19 10:15 05/25/19 17 :15 Chloride IVPB 100 mls WILLCALL [facility] Administration Insulin Human Lispro 0 units 05/19/19 04:06 05/26/19 11:27 Humalog SC 8 unit .MODERATE SLIDING SC PRN Administration Moderate Correctional Scale Insulin Human Lispro 0 units 05/19/19 04:06 05/21/19 21:23 Humalog SC 2 unit .BEDTIME SLIDING SC PRN Administration Bedtime Correctional Scale Methylprednisolone Sodium Succinate 40 mg 05/25/19 12:00 05/26/19 10:46 Solu-Medrol IVP 40 mg Q6HR [facility] Administration Zolpidem Tartrate 5 mg 05/22/19 14:15 05/23/19 00:32 Ambien PO 5 mg HSPRN PRN Administration Insomnia - Exam General Appearance: NAD, awake alert Eye: PERRL ENT: no oropharyngeal lesions, moist mucosa Neck: supple, symmetric Heart: RRR, no murmur, no gallops, no rubs Respiratory: no rales, normal chest expansion, no tachypnea, rhonchi, wheezes ( improving) Gastrointestinal: soft, non-tender, no guarding, no rigidity Extremities: 1+ LE edema Skin: no lesions, no rashes Neurological: cranial nerve grossly intact, no focal deficits Musculoskeletal: generalized weakness Psychiatric: normal behavior, A&O x 3 Hosp A/P (1) YESY (acute kidney injury) Code(s): N17.9 - ACUTE KIDNEY FAILURE, UNSPECIFIED Status: Acute (2) Acute on chronic diastolic (congestive) heart failure Code(s): I50.33 - ACUTE ON CHRONIC DIASTOLIC (CONGESTIVE) HEART FAILURE Status : Acute (3) Acute respiratory failure with hypoxia Code(s): J96.01 - ACUTE RESPIRATORY FAILURE WITH HYPOXIA Status: Acute (4) Bilateral pulmonary infiltrates on CXR Code(s): R91.8 - OTHER NONSPECIFIC ABNORMAL FINDING OF LUNG FIELD Status: Acute (5) Diabetes mellitus Code(s): E11.9 - TYPE 2 DIABETES MELLITUS WITHOUT COMPLICATIONS Status: Acute (6) Elevated troponin Code(s): R79.89 - OTHER SPECIFIED ABNORMAL FINDINGS OF BLOOD CHEMISTRY Status : Acute (7) Heart murmur Code(s): R01.1 - CARDIAC MURMUR, UNSPECIFIED Status: Acute (8) Multifocal pneumonia Code(s): J18.9 - PNEUMONIA, UNSPECIFIED ORGANISM Status: Acute (9) Pulmonary HTN Code(s): I27.20 - PULMONARY HYPERTENSION, UNSPECIFIED Status: Acute (10) CHF exacerbation Code(s): I50.9 - HEART FAILURE, UNSPECIFIED Status: Acute - Plan Plan: Intermediate medical care floor pulmonary/critical-care consultation, recommendations appreciated nephrology consultation, recommendations are patient Tolerating high flow NC, off bipap new onset renal failure requiring hemodialysis volume overload, improving multifocal pneumonia on appropriate antibiotic/ antifungal therapy Bacteremia with streptococus 1/2 blood cultures - sensitivity not reported IV steroids for airway inflammation, weaning as able breathing treatments scheduled and as needed glucose control long and short acting insulin continue other home medications as able blood pressure control G.I. prophylaxis DVT prophylaxis disposition: prognosis guarded
--- NOTE | 2019-05-26 15:24 | PRG ---
DATE OF SERVICE: 05/26/2019 SERVICE: Pulmonary Medicine. INTERVAL HISTORY: The patient's oxygen requirements are improving a little bit. She indicates that she has less difficulty breathing. There is no fevers, chills, nausea, or vomiting. Otherwise, there has been no interval change to her condition. PHYSICAL EXAMINATION: VITAL SIGNS: Afebrile, pulse 80, blood pressure 126/60, respirations 17, saturation 91% on 41% FiO2. This is delivered via high-flow nasal cannula. HEENT: Normocephalic and atraumatic. Sclerae white. Conjunctivae pink. Oral mucosa is moist without lesions. LUNGS: Decent air entry. Crackles are present. There are also rhonchi. No prolonged expiratory phase appreciated. HEART: Normal rate, regular. ABDOMEN: Soft, nontender, and nondistended. Bowel sounds are positive. MUSCULOSKELETAL: No cyanosis or clubbing. There is no pitting in the bilateral lower extremities. NEUROLOGIC: Grossly nonfocal. LABORATORY DATA: WBC 12.3, hemoglobin 8.4 and downtrending, and platelets 170,000 and stable. PH 7.46, pCO2 of 42, and pO2 of 51. Creatinine 3.12, which is downtrending nicely. Basic metabolic profile is otherwise unremarkable. BUN has improved to 37. All serologies including KRISTI, ANCA, rheumatoid factor, CCP, complement levels, GBM antibodies are unremarkable. One out of two blood cultures is growing alpha hemolytic streptococcus. IMAGING: Chest x-ray demonstrates no significant interval change. Bilateral pleural effusions are once again appreciated. ASSESSMENT: 1. Acute hypoxic respiratory failure. 2. Acute kidney injury, improving. 3. Community-acquired pneumonia. DISCUSSION AND PLAN: At this point, the patient seems to be moving in the right direction. As such, I will leave her on our empiric antibiotics and antifungal medications. We will get Physical Therapy involved. Pulmonary/Critical Care will continue to follow. Job ID: [id number]
[2019-05-26] MEDS ORDERED: Furosemide 40 MG/4 ML VIAL ONE (16:35)
[2019-05-26] MEDS: Acetaminophen 500 MG TAB PO PRN (20:23)
[2019-05-26] MEDS: Cefepime 1 GM in Sodium Chloride 0.9% 100 ML IVPB SCH (20:23)
[2019-05-27] MEDS: methylPREDNISolone Sod Succ 40 MG VIAL IVP SCH ×2 (00:15→06:14)
[2019-05-27] MEDS: HumaLOG 300 UNITS/3 ML VIAL SC PRN ×3 (06:15→20:56)
[2019-05-27 06:40] LABS: #Lymphocytes 1.2 thou/uL (1.20-3.40); #Monocytes 0.8 thou/uL (0.11-0.59); #Neutrophils 9.5 thou/uL (1.40-6.50); %Basophils 0.2 % (0.0-1.0); %Eosinophils 0.2 % (0.0-10.0); %Lymphocytes 10.4 % (21.0-51.0); %Monocytes 6.7 % (0.0-10.0); %Neutrophils 82.4 % (42.0-75.0); Hemoglobin 9.2 g/dL (12.0-16.0); Mean Corpuscular HGB CONC 33.6 g/dL (32.0-36.0); Mean Corpuscular Hemoglobin 30.4 pg (27.0-31.0); Mean Corpuscular Volume 90.4 fL (78.0-98.0); Mean Platelet Volume 9.5 fL (7.4-10.4); Platelet Count 153 thou/uL (130-400); RBC Distribution Width 11.9 % (11.5-14.5); Red Blood Cell (RBC) Count 3.02 mill/uL (4.20-5.40); White Blood Cell (WBC) Count 11.6 thou/uL (4.8-10.8)
[2019-05-27 06:54] LABS: Phosphorus 7.9 mg/dL (2.3-4.7)
[2019-05-27 07:04] LABS: Anion Gap 20 mmol/L (10-20); BUN (Urea Nitrogen) 87 mg/dL (9.8-20.1); Calc. Creatinine Clearance 10 mL/min (70-130); Calcium 7.9 mg/dL (7.8-10.44); Carbon Dioxide 24 mmol/L (23-31); Chloride 94 mmol/L (98-107); Estimated GFR-MDRD 7; Glucose 433 mg/dL (80-115); Magnesium 2.4 mg/dL (1.6-2.6); Potassium 5.5 mmol/L (3.5-5.1); Sodium 132 mmol/L (136-145)
[2019-05-27 08:20] LABS: Vancomycin, Random 14.4 ug/mL (See Comment)
--- NOTE | 2019-05-27 08:41 | RAD ---
PORTABLE CHEST ONE VIEW: 05/27/2019 5:12 a.m. HISTORY: Pneumonia. COMPARISON: Exam from the previous day. FINDINGS: There has been interval worsening of the parenchymal opacities, particularly on the right. The heart size is stable. The aorta is tortuous. Left sided opacities are essentially stable. No pneumothoraces or large effusions are seen. Small effusions cannot be excluded. IMPRESSION: Interval worsening since the previous day. POS: [facility]
[2019-05-27] MEDS: Carvedilol 25 MG TAB PO SCH ×2 (09:05→17:36)
[2019-05-27] MEDS: hydrALAZINE 25 MG TAB PO SCH ×3 (09:05→20:56)
[2019-05-27] MEDS: Aspirin Chewable 81 MG TAB PO SCH (09:05)
[2019-05-27] MEDS: Famotidine/PF 20 mg/2ml Vial SLOW IVP SCH (09:06)
[2019-05-27] MEDS: Micafungin 100 MG in Sodium Chloride 0.9% 100 ML IVPB SCH (09:07)
--- NOTE | 2019-05-27 11:01 | PRG ---
DATE OF SERVICE: 05/27/2019 SUBJECTIVE: Ms. Mike Talley is a 64-year-old female, seen by the Renal Service for acute kidney injury secondary to acute tubular necrosis. Due to the progressive azotemia and volume overload, she was initiated on dialysis. Her potassium was noted to be elevated today at 5.5. Our plan is to do another dialytic intervention. No other acute events noted last night. OBJECTIVE: VITAL SIGNS: Blood pressure is noted at 147/80 with a heart rate of 81, respiratory rate 26, pulse ox 96%. GENERAL: Noted to be awake, supine, comfortable, not in overt distress. SKIN: Adequate turgor. HEENT: Pinkish conjunctivae. Anicteric sclerae. NECK: No neck mass. No carotid bruits. No JVD. CHEST: No deformities. LUNGS: Decreased breath sounds. HEART: Tachycardic. No murmur, no gallops, no rubs. ABDOMEN: Globular, soft, nontender. No masses. EXTREMITIES: No edema. No deformities. MEDICATIONS: Medications of May 27, 2019, was reviewed. LABORATORY DATA: Laboratories of May 27, 2019, white count 11.6, hemoglobin 9.2. Sodium 132, potassium 5.5, chloride 94, carbon dioxide 24, BUN 87, creatinine 5.69, glucose 433, calcium 7.9, magnesium 2.4. ASSESSMENT AND PLAN: 1. Acute kidney injury-secondary to acute tubular necrosis. Continue supportive care. Undergoing hemodialysis. My plan is to do at least an [id number] hemodialysis with fluid removal with this patient. 2. Hyperkalemia, hemodialysis today. 3. Pneumonia, currently on IV antibiotics. Overall, prognosis remains guarded with this patient. 4. Congestive heart failure, clinically improving. 5. Overall agree with current management. Job ID: [id number]
[2019-05-27] MEDS ORDERED: Heparin 10,000 UNITS/1 ML VIAL ONE (12:06)
[2019-05-27] MEDS: Acetaminophen 650 MG Suppository PR PRN (12:18)
--- NOTE | 2019-05-27 13:05 | PDOC.HOSPP ---
- Subjective Subjective: Seen and examined. Pulmonary status continues to improve. Patient now a low- flow nasal cannula. Patient profamily week. Recommended out of bed to the chair as tolerated. Work with physical therapy and occupational therapy. Adjusting steroids and insulin. - Objective Vital Signs & Weight: Vital Signs (12 hours) Temp Pulse Resp Pulse Ox 05/27/19 11:12 97.2 F L 05/27/19 09:05 81 05/27/19 07:14 96 05/27/19 07:13 81 26 H 96 05/27/19 07:12 98.7 F 05/27/19 04:08 99.5 F Weight Weight 146 lb 8 oz Most Recent Monitor Data Heart Rate from ECG 82 NIBP 133/55 NIBP BP-Mean 81 Respiration from ECG 33 SpO2 94 I&O: 05/26/19 05/27/19 05/28/19 06:59 06:59 06:59 Intake Total 397 727 Output Total 1820 2 Balance -1423 725 Result Diagrams: 05/27/19 06:15 05/27/19 06:15 Additional Labs: Accuchecks 05/27/19 05/27/19 05/26/19 10:52 06:17 20:23 POC Glucose 417 H 429 H 417 H Radiology Reviewed by me: Yes Hospitalist ROS - Review of Systems All other systems reviewed; all pertinent +/- noted in HPI/Subj - Medication Medications: Active Medications Generic Name Dose Route Start Last Admin Trade Name Freq PRN Reason Stop Dose Admin Acetaminophen 1,000 mg 05/19/19 04:06 05/26/19 20:23 Tylenol PO 1,000 mg Q6H PRN Administration Mild Pain (1-3) Acetaminophen 650 mg 05/26/19 03:53 05/26/19 03:57 Tylenol GA 650 mg Q6H PRN Administration Headache/Fever or Pain Albuterol/Ipratropium 3 ml 05/20/19 13:00 05/27/19 07:13 Duoneb NEB 3 ml [id number] LENNY Administration Aspirin 81 mg 05/19/19 09:00 05/27/19 09:05 Aspirin Chewable PO 81 mg DAILY LENNY Administration Carvedilol 25 mg 05/23/19 08:00 05/27/19 09:05 Coreg PO 25 mg BID-WM LENNY Administration Famotidine 20 mg 05/19/19 09:00 05/27/19 09:06 Pepcid SLOW IVP 20 mg DAILY LENNY Administration Heparin Sodium (Porcine) 500 units 05/25/19 04:25 05/27/19 06:14 Heparin Lock Flush 100 Units/Ml IVF 500 unit PRN PRN Administration Heparin Flush Hydralazine HCl 50 mg 05/19/19 09:00 05/27/19 09:05 Apresoline PO 50 mg TID LENNY Administration Micafungin Sodium 100 mg/ 100 mls @ 100 mls/hr 05/25/19 10:00 05/27/19 09:07 Sodium Chloride IVPB 100 mls 1000 LENNY Administration Vancomycin HCl 250 mg/ Sodium 100 mls @ 100 mls/hr 05/25/19 10:15 05/25/19 17 :15 Chloride IVPB 100 mls WILLCALL LENNY Administration Cefepime HCl 1 gm/ Sodium 100 mls @ 100 mls/hr 05/26/19 20:00 05/26/19 20:23 Chloride IVPB 100 mls 2000 LENNY Administration Insulin Human Lispro 0 units 05/19/19 04:06 05/26/19 20:24 Humalog SC 5 unit .BEDTIME SLIDING SC PRN Administration Bedtime Correctional Scale Insulin Human Lispro 0 units 05/27/19 09:03 05/27/19 10:56 Humalog SC 13 unit .AGGRESSIVE SLIDING PRN Administration Aggressive Correctional Scale Pantoprazole Sodium 40 mg 05/27/19 09:00 05/27/19 09:05 Protonix PO 40 mg DAILY LENNY Administration Zolpidem Tartrate 5 mg 05/22/19 14:15 05/23/19 00:32 Ambien PO 5 mg HSPRN PRN Administration Insomnia - Exam General Appearance: NAD, awake alert ENT: normocephalic atraumatic, moist mucosa Neck: supple, symmetric, no lymphadenopathy Heart: no murmur, no gallops, no rubs Respiratory: rhonchi, wheezes (Few - significantly improved) Gastrointestinal: soft, non-tender, no guarding, no rigidity Extremities: 1+ LE edema Skin: no lesions, no rashes Neurological: cranial nerve grossly intact, no focal deficits Musculoskeletal: generalized weakness Psychiatric: normal affect, A&O x 3 Hosp A/P (1) YESY (acute kidney injury) Code(s): N17.9 - ACUTE KIDNEY FAILURE, UNSPECIFIED Status: Acute (2) Acute on chronic diastolic (congestive) heart failure Code(s): I50.33 - ACUTE ON CHRONIC DIASTOLIC (CONGESTIVE) HEART FAILURE Status : Acute (3) Acute respiratory failure with hypoxia Code(s): J96.01 - ACUTE RESPIRATORY FAILURE WITH HYPOXIA Status: Acute (4) Bilateral pulmonary infiltrates on CXR Code(s): R91.8 - OTHER NONSPECIFIC ABNORMAL FINDING OF LUNG FIELD Status: Acute (5) Diabetes mellitus Code(s): E11.9 - TYPE 2 DIABETES MELLITUS WITHOUT COMPLICATIONS Status: Acute (6) Elevated troponin Code(s): R79.89 - OTHER SPECIFIED ABNORMAL FINDINGS OF BLOOD CHEMISTRY Status : Acute (7) Heart murmur Code(s): R01.1 - CARDIAC MURMUR, UNSPECIFIED Status: Acute (8) Multifocal pneumonia Code(s): J18.9 - PNEUMONIA, UNSPECIFIED ORGANISM Status: Acute (9) Pulmonary HTN Code(s): I27.20 - PULMONARY HYPERTENSION, UNSPECIFIED Status: Acute (10) CHF exacerbation Code(s): I50.9 - HEART FAILURE, UNSPECIFIED Status: Acute - Plan Plan: Intermediate medical care floor pulmonary/critical-care consultation, recommendations appreciated nephrology consultation, recommendations are patient Off high flow NC, now on low flow Now is the time to mobilize the patient and regain her physical strength new onset renal failure requiring hemodialysis volume overload, improving multifocal pneumonia on appropriate antibiotic/ antifungal therapy Bacteremia with streptococus 1/2 blood cultures - sensitivity not reported IV steroids for airway inflammation, weaning breathing treatments scheduled and as needed glucose control long and short acting insulin continue other home medications as able blood pressure control G.I. prophylaxis DVT prophylaxis disposition: prognosis guarded
--- NOTE | 2019-05-27 16:39 | PRG ---
DATE OF SERVICE: 05/27/2019 SERVICE: Pulmonary Medicine. INTERVAL HISTORY: The patient is doing outstanding from respiratory standpoint. This morning, she ended up undergoing dialysis once again. She ended up getting 2.5 L off. Her oxygen saturations have improved. She is actually off high-flow nasal cannula on 2 L nasal cannula. She has no other complaints. PHYSICAL EXAMINATION: VITAL SIGNS: Afebrile, pulse 80, blood pressure 158/59, respirations 24, and saturation 97%, currently on 3 L nasal cannula. GENERAL: The patient is awake and alert, in no apparent distress. LUNGS: Decent air entry. Crackles are improving. HEART: Normal rate. Regular. ABDOMEN: Soft, nontender, and nondistended. Bowel sounds are positive. MUSCULOSKELETAL: No cyanosis or clubbing. There is no pitting in the bilateral lower extremities. NEUROLOGIC: Grossly nonfocal. LABORATORY DATA: WBC 11.6, hemoglobin 9.2, and platelets 153,000. Creatinine 5.69, BUN 87, and potassium 5.5. Basic metabolic profile is otherwise unremarkable. Phosphorus 7.9. Her magnesium of 2.4. All serologies are negative to-date. Blood culture is growing alpha hemolytic strep in 1 out of 2. IMAGING: Chest x-ray demonstrates interval increase in opacifications throughout bilateral lung real. ASSESSMENT: 1. Acute hypoxic respiratory failure. 2. Acute kidney injury, improving. 3. Community-acquired pneumonia versus other pulmonary infiltrate. DISCUSSION AND PLAN: Although the picture is looking a little worse, the patient's oxygen requirements have actually improved dramatically. She has been on oxygen all day long, and she has successfully had 2.5 L removed with dialysis. We can transition her out of the IMCU to the medical unit. Pulmonary/Critical Care will continue to follow along for now. Job ID: [id number] MTDD
[2019-05-27] MEDS: Cefepime 1 GM in Sodium Chloride 0.9% 100 ML IVPB SCH (20:55)
[2019-05-27] MEDS: Insulin Glargine 10 UNITS in Pre-Filled Syringe 1 EACH SC SCH (20:57)
[2019-05-28] MEDS: HumaLOG 300 UNITS/3 ML VIAL SC PRN ×4 (05:33→21:14)
[2019-05-28 05:38] LABS: #Lymphocytes 1.6 thou/uL (1.20-3.40); #Monocytes 2.7 thou/uL (0.11-0.59); #Neutrophils 14.3 thou/uL (1.40-6.50); %Basophils 0.2 % (0.0-1.0); %Eosinophils 0.2 % (0.0-10.0); %Lymphocytes 8.3 % (21.0-51.0); %Monocytes 14.4 % (0.0-10.0); %Neutrophils 76.9 % (42.0-75.0); Hemoglobin 8.7 g/dL (12.0-16.0); Mean Corpuscular HGB CONC 34.5 g/dL (32.0-36.0); Mean Corpuscular Hemoglobin 31.5 pg (27.0-31.0); Mean Corpuscular Volume 91.3 fL (78.0-98.0); Mean Platelet Volume 8.9 fL (7.4-10.4); Platelet Count 136 thou/uL (130-400); RBC Distribution Width 11.8 % (11.5-14.5); Red Blood Cell (RBC) Count 2.76 mill/uL (4.20-5.40); White Blood Cell (WBC) Count 18.7 thou/uL (4.8-10.8)
[2019-05-28 05:59] LABS: Anion Gap 16 mmol/L (10-20); BUN (Urea Nitrogen) 51 mg/dL (9.8-20.1); Calc. Creatinine Clearance 16 mL/min (70-130); Calcium 7.9 mg/dL (7.8-10.44); Carbon Dioxide 28 mmol/L (23-31); Chloride 96 mmol/L (98-107); Estimated GFR-MDRD 13; Glucose 258 mg/dL (80-115); Magnesium 2.2 mg/dL (1.6-2.6); Potassium 4.5 mmol/L (3.5-5.1); Sodium 135 mmol/L (136-145)
[2019-05-28 06:00] LABS: Phosphorus 5.2 mg/dL (2.3-4.7)
[2019-05-28] MEDS: hydrALAZINE 25 MG TAB PO SCH ×3 (08:09→21:11)
[2019-05-28] MEDS: methylPREDNISolone Sod Succ 40 MG VIAL IVP SCH (08:09)
[2019-05-28] MEDS: Aspirin Chewable 81 MG TAB PO SCH (08:09)
[2019-05-28] MEDS: Famotidine/PF 20 mg/2ml Vial SLOW IVP SCH (08:10)
[2019-05-28] MEDS: Carvedilol 25 MG TAB PO SCH ×2 (08:10→17:45)
[2019-05-28] MEDS: Insulin Glargine 10 UNITS in Pre-Filled Syringe 1 EACH SC SCH (08:10)
--- NOTE | 2019-05-28 08:28 | RAD ---
XR Chest 1 View Portable History: Pneumonia Comparison: Radiograph prior day Findings: Heart size continues to be enlarged. Perihilar opacities are similar as well as small effus ions. No pneumothorax. Disc desiccation transverse aorta. No acute osseous abnormality. Impression: Similar examination of the chest.
[2019-05-28 08:29] LABS: Vancomycin, Random 10.4 ug/mL (See Comment)
[2019-05-28] MEDS: Micafungin 100 MG in Sodium Chloride 0.9% 100 ML IVPB SCH (09:33)
--- NOTE | 2019-05-28 09:51 | PRG ---
DATE OF SERVICE: 05/28/2019 SUBJECTIVE: Ms. Mike Talley is a 64-year-old female, who was initially seen for an acute kidney injury that was secondary to acute tubular necrosis and dialysis was done on this patient. She continues to be dependent on dialysis. She received dialysis yesterday with fluid removal. Dialysis was also done due to the mild hyperkalemia yesterday. This morning, she voices no new complaints, no chest pain or shortness of breath. OBJECTIVE: VITAL SIGNS: Blood pressure 143/60, heart rate 78, respiratory rate 16, and O2 sat 100%. GENERAL: Noted to be awake, alert, comfortable, not in distress. SKIN: Adequate turgor. HEENT: Slightly pale conjunctivae. Anicteric sclerae. NECK: No neck mass. No carotid bruits. No JVD. CHEST: No deformities. LUNGS: Clear breath sounds. HEART: Normal sinus rhythm. No murmur. No gallops. No rubs. ABDOMEN: Globular, soft, and nontender. No masses. EXTREMITIES: No edema. No deformities. MEDICATIONS: Medications of May 28, 2019, was reviewed. LABORATORY DATA: May 28, 2019; sodium 135, potassium 4.5, chloride 96, carbon dioxide 28, BUN 51, creatinine 3.57, glucose 258, calcium 7.9, phosphorus 5.2, and magnesium 2.2. Hemoglobin 8.7 and white count 18.7. ASSESSMENT AND PLAN: 1. Pneumonia. Currently, the patient is on IV vancomycin. 2. Acute kidney injury - secondary to acute tubular necrosis. Continuing 3 times a week hemodialysis, fluid removal as tolerated. 3. Hyperkalemia, resolved with dialysis yesterday. Agree with current management. 4. Mild hyperphosphatemia - we will start Renvela 800 mg one tablet t.i.d. with meals. 5. Agree with current management. Job ID: [id number]
--- NOTE | 2019-05-28 10:18 | PRG ---
DATE OF SERVICE: 05/28/2019 SUBJECTIVE: She remains in the hospital. Last chest x-ray still shows evidence of right-sided infiltrate. OBJECTIVE: VITAL SIGNS: Her vital signs are much improved. Oxygen saturation is 99% to 100% on 3 L, temperature 99, pulse 78, blood pressure . CHEST: Decreased breath sounds. No wheezing. CARDIAC: Normal S1 and S2. No gallops. ABDOMEN: Soft. LABORATORY DATA: Creatinine 3.57. White count 18,000. ASSESSMENT: 1. Pneumonia, on Maxipime. 2. Chronic obstructive pulmonary disease, on steroids. PLAN: 1. Continue with present treatment, antibiotics, steroids. Transition to p.o. medication in the next 24 to 48 hours. 2. We will follow. Job ID: [id number]
--- NOTE | 2019-05-28 12:37 | PDOC.HOSPP ---
- Subjective Subjective: Seen and examined. Clinically significantly improved. Breathing well on low flow NC. Got up with PT/OT able to stand and sat in chair for over 1 hour. Need to improve exercise tolerance and calorie intake. Significant improvements over the past few days. - Objective Vital Signs & Weight: Vital Signs (12 hours) Temp Pulse Resp BP BP Pulse Ox 05/28/19 11:00 97.8 F 75 20 146/62 H 100 05/28/19 08:09 80 143/60 H 05/28/19 08:00 99.1 F 100 05/28/19 07:45 78 16 100 05/28/19 07:15 99.1 F 80 20 143/90 H 99 05/28/19 03:53 97.9 F 83 18 133/49 L 97 Weight Weight 146 lb 8 oz Most Recent Monitor Data Heart Rate from ECG 74 NIBP 144/58 NIBP BP-Mean 86 Respiration from ECG 13 SpO2 96 I&O: 05/27/19 05/28/19 05/29/19 06:59 06:59 06:59 Intake Total 727 620 120 Output Total 2 2400 Balance 725 -1780 120 Result Diagrams: 05/28/19 04:37 05/28/19 04:37 Additional Labs: Accuchecks 05/28/19 05/28/19 05/27/19 11:43 03:55 20:29 POC Glucose 321 H 258 H 341 H 05/27/19 05/27/19 18:16 15:46 POC Glucose 218 H 118 H Radiology Reviewed by me: Yes Hospitalist ROS - Review of Systems All other systems reviewed; all pertinent +/- noted in HPI/Subj - Medication Medications: Active Medications Generic Name Dose Route Start Last Admin Trade Name Freq PRN Reason Stop Dose Admin Acetaminophen 1,000 mg 05/19/19 04:06 05/26/19 20:23 Tylenol PO 1,000 mg Q6H PRN Administration Mild Pain (1-3) Acetaminophen 650 mg 05/26/19 03:53 05/27/19 12:18 Tylenol DC 650 mg Q6H PRN Administration Headache/Fever or Pain Albuterol/Ipratropium 3 ml 05/20/19 13:00 05/28/19 07:45 Duoneb NEB 3 ml [id number] LENNY Administration Aspirin 81 mg 05/19/19 09:00 05/28/19 08:09 Aspirin Chewable PO 81 mg DAILY LENNY Administration Carvedilol 25 mg 05/23/19 08:00 05/28/19 08:10 Coreg PO 25 mg BID-WM LENNY Administration Famotidine 20 mg 05/19/19 09:00 05/28/19 08:10 Pepcid SLOW IVP 20 mg DAILY LENNY Administration Heparin Sodium (Porcine) 500 units 05/25/19 04:25 05/28/19 05:34 Heparin Lock Flush 100 Units/Ml IVF 500 unit PRN PRN Administration Heparin Flush Hydralazine HCl 50 mg 05/19/19 09:00 05/28/19 08:09 Apresoline PO 50 mg TID LENNY Administration Micafungin Sodium 100 mg/ 100 mls @ 100 mls/hr 05/25/19 10:00 05/28/19 09:33 Sodium Chloride IVPB 100 mls 1000 LENNY Administration Vancomycin HCl 250 mg/ Sodium 100 mls @ 100 mls/hr 05/25/19 10:15 05/25/19 17 :15 Chloride IVPB 100 mls WILLCALL LENNY Administration Cefepime HCl 1 gm/ Sodium 100 mls @ 100 mls/hr 05/26/19 20:00 05/27/19 20:55 Chloride IVPB 100 mls 2000 LENNY Administration Insulin Glargine 10 units/ 0.1 mls @ 1 mls/hr 05/27/19 21:00 05/28/19 08:10 Miscellaneous Medication SC 0.1 mls BID LENNY Administration Insulin Human Lispro 0 units 05/19/19 04:06 05/27/19 20:56 Humalog SC 4 unit .BEDTIME SLIDING SC PRN Administration Bedtime Correctional Scale Insulin Human Lispro 0 units 05/27/19 09:03 05/28/19 05:33 Humalog SC 9 unit .AGGRESSIVE SLIDING PRN Administration Aggressive Correctional Scale Methylprednisolone Sodium Succinate 40 mg 05/28/19 09:00 05/28/19 08:09 Solu-Medrol IVP 40 mg DAILY LENNY Administration Pantoprazole Sodium 40 mg 05/27/19 09:00 05/28/19 08:10 Protonix PO 40 mg DAILY LENNY Administration Zolpidem Tartrate 5 mg 05/22/19 14:15 05/23/19 00:32 Ambien PO 5 mg HSPRN PRN Administration Insomnia - Exam General Appearance: NAD, awake alert Eye: anicteric sclera ENT: normocephalic atraumatic, moist mucosa Neck: supple, symmetric, no lymphadenopathy Heart: no murmur, no gallops, no rubs Respiratory: CTAB, no rales, normal chest expansion, no tachypnea, rhonchi, wheezes (improving) Gastrointestinal: soft, non-tender, normal bowel sounds, no guarding, no rigidity Extremities: no clubbing, no edema Skin: no lesions, no rashes Neurological: cranial nerve grossly intact, no new deficit Musculoskeletal: generalized weakness Psychiatric: normal affect, A&O x 3 Hosp A/P (1) YESY (acute kidney injury) Code(s): N17.9 - ACUTE KIDNEY FAILURE, UNSPECIFIED Status: Acute (2) Acute on chronic diastolic (congestive) heart failure Code(s): I50.33 - ACUTE ON CHRONIC DIASTOLIC (CONGESTIVE) HEART FAILURE Status : Acute (3) Acute respiratory failure with hypoxia Code(s): J96.01 - ACUTE RESPIRATORY FAILURE WITH HYPOXIA Status: Resolved (4) Bilateral pulmonary infiltrates on CXR Code(s): R91.8 - OTHER NONSPECIFIC ABNORMAL FINDING OF LUNG FIELD Status: Acute (5) Diabetes mellitus Code(s): E11.9 - TYPE 2 DIABETES MELLITUS WITHOUT COMPLICATIONS Status: Acute (6) Elevated troponin Code(s): R79.89 - OTHER SPECIFIED ABNORMAL FINDINGS OF BLOOD CHEMISTRY Status : Acute (7) Heart murmur Code(s): R01.1 - CARDIAC MURMUR, UNSPECIFIED Status: Acute (8) Multifocal pneumonia Code(s): J18.9 - PNEUMONIA, UNSPECIFIED ORGANISM Status: Acute (9) Pulmonary HTN Code(s): I27.20 - PULMONARY HYPERTENSION, UNSPECIFIED Status: Acute (10) CHF exacerbation Code(s): I50.9 - HEART FAILURE, UNSPECIFIED Status: Acute - Plan Plan: Medical unit General surgery consultation, recommendations appreciated pulmonary/critical-care consultation, recommendations appreciated nephrology consultation, recommendations are patient 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 prophylaxis DVT prophylaxis disposition: Improving on maximum medical therapy. prognosis guarded
[2019-05-28] MEDS: Sevelamer Carbonate 800 MG TAB PO SCH ×2 (12:52→17:44)
[2019-05-28] MEDS ORDERED: Polyethylene Glycol 3350 17 GM Packet PO PRN (18:00)
[2019-05-28] MEDS ORDERED: Glycerin Liquid Pediatric Supp. 4 ml PR PRN (18:01)
[2019-05-28] MEDS ORDERED: Fleet Enema 133 ML BOT PR PRN (18:02)
[2019-05-28] MEDS: Cefepime 1 GM in Sodium Chloride 0.9% 100 ML IVPB SCH (21:11)
[2019-05-28] MEDS: Docusate 100 MG CAP PO SCH (21:12)
[2019-05-28] MEDS: Insulin Glargine 20 UNITS in Pre-Filled Syringe SC SCH (21:12)
[2019-05-29] MEDS: Carvedilol 25 MG TAB PO SCH ×2 (06:08→17:54)
[2019-05-29 06:40] LABS: Hemoglobin 8.6 g/dL (12.0-16.0); Mean Corpuscular Hemoglobin 30.5 pg (27.0-31.0); Mean Corpuscular Volume 89.7 fL (78.0-98.0); Mean Platelet Volume 9.8 fL (7.4-10.4); Platelet Count 128 thou/uL (130-400); RBC Distribution Width 11.9 % (11.5-14.5); Red Blood Cell (RBC) Count 2.84 mill/uL (4.20-5.40); White Blood Cell (WBC) Count 23.3 thou/uL (4.8-10.8)
[2019-05-29 07:13] LABS: Phosphorus 6.3 mg/dL (2.3-4.7)
[2019-05-29 07:14] LABS: Anion Gap 18 mmol/L (10-20); BUN (Urea Nitrogen) 99 mg/dL (9.8-20.1); Calc. Creatinine Clearance 11 mL/min (70-130); Calcium 7.9 mg/dL (7.8-10.44); Carbon Dioxide 26 mmol/L (23-31); Chloride 96 mmol/L (98-107); Estimated GFR-MDRD 8; Glucose 228 mg/dL (80-115); Magnesium 2.4 mg/dL (1.6-2.6); Potassium 5.1 mmol/L (3.5-5.1); Sodium 135 mmol/L (136-145)
[2019-05-29 07:24] LABS: Band 3 % (5-11); Lymphocytes 10 % (21-51); MDiff Complete? YES; Monocytes 5 % (0-10); Neutrophil 81 % (42-75); Platelet Morphology Comment Appears Decreased; Polychromasia SLIGHT = 2-3 cells (100X) (0-2/hpf); Promyelocytes 1 % (0-0)
--- NOTE | 2019-05-29 08:18 | RAD ---
XR Chest 1 View Portable History: Pneumonia Comparison: Radiograph prior day Findings: Interval improvement of large effusions and bibasilar opacities. Pulmonary arteries are dil ated. No pneumothorax. Impression: Improving pulmonary edema and size decreased pleural effusions.
[2019-05-29] MEDS ORDERED: methylPREDNISolone Sod Succ 40 MG VIAL IVP SCH (09:00)
[2019-05-29] MEDS ORDERED: Heparin 10,000 UNITS/1 ML VIAL ONE (09:16)
--- NOTE | 2019-05-29 09:29 | PRG ---
DATE OF SERVICE: 05/29/2019 SUBJECTIVE: Ms. Mike Talley is a 64-year-old female, seen by the Renal Service for acute kidney injury secondary to ATN. She has undergone hemodialysis for the last one week. She is tolerating said treatment. She still has no evidence of renal recovery. No new complaints today. OBJECTIVE: VITAL SIGNS: Blood pressure is 155/62, heart rate 79, respiratory rate 18, temperature 98.1, pulse ox 93%. GENERAL: The patient is noted to be awake, alert, comfortable, not in distress. SKIN: Adequate turgor. HEENT: She has slightly pale conjunctivae. Anicteric sclerae. NECK: No neck mass. No carotid bruits. No JVD. CHEST: No deformities. LUNGS: Decreased breath sounds. HEART: Normal sinus rhythm. No murmurs, no gallops, no rubs. ABDOMEN: Globular, soft, nontender. No masses. EXTREMITIES: No edema. No deformities. MEDICATIONS: Medications of May 29, 2019, was reviewed. LABORATORY DATA: Laboratories of May 29, 2019, white count 23.3, hemoglobin 8.6. Sodium 135, potassium 5.1, chloride 96, carbon dioxide 26, BUN 99, creatinine 5.45, glucose 228, calcium 7.9, magnesium 2.4, phosphorus is 6.3. ASSESSMENT AND PLAN: 1. Acute kidney injury secondary to acute tubular necrosis. Continue supportive dialysis. No changes in the Tuesday, , Tuesday dialysis regimen with this patient. No evidence of renal recovery. Fluid removal as tolerated. 2. Hyperphosphatemia. Continuing Renvela 800 mg p.o. t.i.d. with meals. 3. Pneumonia/acute respiratory failure, clinically much improved on empiric IV antibiotics and the patient currently is on steroids. This may explain high white count with the patient. 4. Recheck basic metabolic profile and CBC in a.m. Job ID: [id number]
[2019-05-29] MEDS ORDERED: CEFAZOLIN 2 GM in Premix Bag 1 BAG IVPB SCH (09:30)
--- NOTE | 2019-05-29 10:48 | PRG ---
DATE OF SERVICE: 05/29/2019 SUBJECTIVE: This morning, she is much more appropriate, no longer isopathic. Denies any pain or discomfort. OBJECTIVE: VITAL SIGNS: Temperature 98, pulse 79, respiratory rate 18, sats 98% 2 L, and blood pressure 155/62. She is being dialyzed. CHEST: No wheezing or crackles. CARDIAC: Normal S1 and S2. ABDOMEN: Soft, no masses. ASSESSMENT: 1. Chronic renal failure on dialysis. 2. Sepsis syndrome. 3. Pneumonia. 4. Congestive heart failure. 5. Diabetes. PLAN: Her x-rays have much improved. I have discontinued the micafungin. At this stage, we will continue PT, supportive care, eventually placement. Job ID: [id number]
[2019-05-29] MEDS: Docusate 100 MG CAP PO SCH ×2 (10:57→21:14)
[2019-05-29] MEDS: Sevelamer Carbonate 800 MG TAB PO SCH ×3 (10:57→17:55)
[2019-05-29] MEDS: hydrALAZINE 25 MG TAB PO SCH ×3 (10:57→21:14)
[2019-05-29] MEDS: Insulin Glargine 20 UNITS in Pre-Filled Syringe SC SCH (11:37)
--- NOTE | 2019-05-29 12:48 | PDOC.HOSPP ---
- Subjective Subjective: Patient requiring long-term HD access. General surgery on the case. Otherwise progressing as expected. Patient may benefit from subacute placement versus rehab once medically stabilized. - Objective Vital Signs & Weight: Vital Signs (12 hours) Temp Pulse Resp BP Pulse Ox 05/29/19 10:57 79 05/29/19 08:00 93 L 05/29/19 07:20 98.1 F 79 18 155/62 H 93 L 05/29/19 00:52 82 14 95 Weight Weight 146 lb 8 oz Most Recent Monitor Data Heart Rate from ECG 74 NIBP 144/58 NIBP BP-Mean 86 Respiration from ECG 13 SpO2 96 I&O: 05/28/19 05/29/19 05/30/19 06:59 06:59 06:59 Intake Total 620 1190 Output Total 2400 0 Balance -1780 1190 Result Diagrams: 05/29/19 06:15 05/29/19 06:15 Additional Labs: Accuchecks 05/29/19 05/28/19 05/28/19 05:36 19:01 15:57 POC Glucose 249 H 489 H 470 H Radiology Reviewed by me: Yes Hospitalist ROS - Review of Systems All other systems reviewed; all pertinent +/- noted in HPI/Subj - Medication Medications: Active Medications Generic Name Dose Route Start Last Admin Trade Name Freq PRN Reason Stop Dose Admin Acetaminophen 1,000 mg 05/19/19 04:06 05/26/19 20:23 Tylenol PO 1,000 mg Q6H PRN Administration Mild Pain (1-3) Acetaminophen 650 mg 05/26/19 03:53 05/27/19 12:18 Tylenol [place] 650 mg Q6H PRN Administration Headache/Fever or Pain Albuterol/Ipratropium 3 ml 05/20/19 13:00 05/29/19 08:40 Duoneb NEB Not Given [id number] LENNY Aspirin 81 mg 05/19/19 09:00 05/28/19 08:09 Aspirin Chewable PO 81 mg DAILY LENNY Administration Carvedilol 25 mg 05/23/19 08:00 05/29/19 06:08 Coreg PO 25 mg BID-WM LENNY Administration Docusate Sodium 100 mg 05/28/19 21:00 05/29/19 10:57 Colace PO Not Given BID LENNY Heparin Sodium (Porcine) 500 units 05/25/19 04:25 05/29/19 05:58 Heparin Lock Flush 100 Units/Ml IVF 500 unit PRN PRN Administration Heparin Flush Hydralazine HCl 50 mg 05/19/19 09:00 05/29/19 10:57 Apresoline PO Not Given TID LENNY Vancomycin HCl 250 mg/ Sodium 100 mls @ 100 mls/hr 05/25/19 10:15 05/25/19 17 :15 Chloride IVPB 100 mls WILLCALL LENNY Administration Insulin Human Lispro 0 units 05/19/19 04:06 05/28/19 21:14 Humalog SC 5 unit .BEDTIME SLIDING SC PRN Administration Bedtime Correctional Scale Insulin Human Lispro 0 units 05/27/19 09:03 05/28/19 17:49 Humalog SC 13 unit .AGGRESSIVE SLIDING PRN Administration Aggressive Correctional Scale Pantoprazole Sodium 40 mg 05/27/19 09:00 05/28/19 08:10 Protonix PO 40 mg DAILY LENNY Administration Sevelamer Carbonate 800 mg 05/28/19 12:00 05/29/19 10:57 Renvela PO Not Given TID-[facility] Zolpidem Tartrate 5 mg 05/22/19 14:15 05/23/19 00:32 Ambien PO 5 mg HSPRN PRN Administration Insomnia - Exam General Appearance: NAD, awake alert Eye: PERRL ENT: normocephalic atraumatic, moist mucosa Neck: supple, symmetric, no lymphadenopathy Heart: no murmur, no gallops, no rubs, normal peripheral pulses Respiratory: CTAB, no rales, no ronchi, wheezes (Very faint, nearly resolved) Gastrointestinal: soft, non-tender, non-distended, no guarding, no rigidity Extremities: 1+ LE edema Skin: no lesions, no rashes Neurological: cranial nerve grossly intact, no focal deficits Musculoskeletal: generalized weakness Psychiatric: normal affect, normal behavior, A&O x 3 Hosp A/P (1) YESY (acute kidney injury) Code(s): N17.9 - ACUTE KIDNEY FAILURE, UNSPECIFIED Status: Acute (2) Acute on chronic diastolic (congestive) heart failure Code(s): I50.33 - ACUTE ON CHRONIC DIASTOLIC (CONGESTIVE) HEART FAILURE Status : Acute (3) Acute respiratory failure with hypoxia Code(s): J96.01 - ACUTE RESPIRATORY FAILURE WITH HYPOXIA Status: Resolved (4) Bilateral pulmonary infiltrates on CXR Code(s): R91.8 - OTHER NONSPECIFIC ABNORMAL FINDING OF LUNG FIELD Status: Acute (5) Diabetes mellitus Code(s): E11.9 - TYPE 2 DIABETES MELLITUS WITHOUT COMPLICATIONS Status: Acute (6) Elevated troponin Code(s): R79.89 - OTHER SPECIFIED ABNORMAL FINDINGS OF BLOOD CHEMISTRY Status : Acute (7) Heart murmur Code(s): R01.1 - CARDIAC MURMUR, UNSPECIFIED Status: Acute (8) Multifocal pneumonia Code(s): J18.9 - PNEUMONIA, UNSPECIFIED ORGANISM Status: Acute (9) Pulmonary HTN Code(s): I27.20 - PULMONARY HYPERTENSION, UNSPECIFIED Status: Acute (10) CHF exacerbation Code(s): I50.9 - HEART FAILURE, UNSPECIFIED Status: Acute - Plan Plan: Medical unit General surgery consultation, recommendations appreciated pulmonary/critical-care consultation, recommendations appreciated nephrology consultation, recommendations are patient 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 be 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 for 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 prophylaxis DVT prophylaxis disposition: Improving on maximum medical therapy. prognosis guarded
[2019-05-29] MEDS: Aspirin Chewable 81 MG TAB PO SCH (14:14)
[2019-05-29] MEDS: methylPREDNISolone Sod Succ 40 MG VIAL IVP SCH (14:14)
--- NOTE | 2019-05-29 17:54 | PRG ---
DATE OF SERVICE: 05/29/2019 Radha Talley is doing well clinically, but renal recovery is not occurring. We will plan placement of a hemodialysis catheter tomorrow. We will postpone long-term dialysis access to see if she has any renal recovery over the next few weeks. She has poor veins by vein mapping. We will plan placement of a hemodialysis catheter, if possible central line tomorrow. Job ID: [id number]
[2019-05-29] MEDS: HumaLOG 300 UNITS/3 ML VIAL SC PRN ×2 (17:55→21:15)
[2019-05-29] MEDS: Insulin Glargine 23 UNITS in Pre-Filled Syringe 1 EACH SC SCH (21:14)
[2019-05-30 05:15] LABS: Anion Gap 14 mmol/L (10-20); BUN (Urea Nitrogen) 45 mg/dL (9.8-20.1); Calc. Creatinine Clearance 18 mL/min (70-130); Calcium 7.8 mg/dL (7.8-10.44); Carbon Dioxide 29 mmol/L (23-31); Chloride 98 mmol/L (98-107); Estimated GFR-MDRD 15; Glucose 162 mg/dL (80-115); Magnesium 2.2 mg/dL (1.6-2.6); Potassium 4.5 mmol/L (3.5-5.1); Sodium 136 mmol/L (136-145)
[2019-05-30 05:28] LABS: Phosphorus 4.2 mg/dL (2.3-4.7)
[2019-05-30] MEDS: Carvedilol 25 MG TAB PO SCH ×2 (05:54→17:48)
[2019-05-30 06:01] LABS: Band 2 % (5-11); Hemoglobin 8.5 g/dL (12.0-16.0); Lymphocytes 10 % (21-51); MDiff Complete? YES; Mean Corpuscular HGB CONC 33.1 g/dL (32.0-36.0); Mean Corpuscular Hemoglobin 30.1 pg (27.0-31.0); Mean Corpuscular Volume 90.7 fL (78.0-98.0); Mean Platelet Volume 9.8 fL (7.4-10.4); Monocytes 5 % (0-10); Neutrophil 83 % (42-75); Platelet Count 138 thou/uL (130-400); RBC Distribution Width 11.9 % (11.5-14.5); Red Blood Cell (RBC) Count 2.82 mill/uL (4.20-5.40); White Blood Cell (WBC) Count 25.1 thou/uL (4.8-10.8)
--- NOTE | 2019-05-30 07:38 | RAD ---
Chest one view HISTORY: Pneumonia. Follow-up. COMPARISON: 05/29/2019. Findings cardiac silhouette is magnified by projection. Pulmonary vasculature remains slightly engorg ed. Very subtle patchy areas of parenchymal opacity throughout each lung similar in appearance to the prior study. Mediastinum is midline with aortic calcification. No evidence of pneumothorax. IMPRESSION: Stable radiographic appearance of the chest.
[2019-05-30] MEDS: Sevelamer Carbonate 800 MG TAB PO SCH ×3 (08:41→17:48)
[2019-05-30] MEDS: Docusate 100 MG CAP PO SCH ×2 (08:41→21:06)
[2019-05-30] MEDS: hydrALAZINE 25 MG TAB PO SCH ×3 (08:41→21:05)
[2019-05-30] MEDS: Aspirin Chewable 81 MG TAB PO SCH (08:42)
[2019-05-30] MEDS: Insulin Glargine 23 UNITS in Pre-Filled Syringe 1 EACH SC SCH ×2 (08:42→21:06)
[2019-05-30] MEDS: predniSONE 5 MG TAB PO SCH (08:42)
--- NOTE | 2019-05-30 09:12 | PRG ---
DATE OF SERVICE: 05/30/2019 SUBJECTIVE: This morning, she is better, less short of breath. OBJECTIVE: VITAL SIGNS: Saturations 99% on 1 L, temperature 98, pulse 70, respiratory rate 20, blood pressure 155/61. CHEST: No wheezing. No crackles. CARDIAC: Normal S1 and S2. ABDOMEN: No masses. LABORATORY DATA: White count is still remains elevated at 25,000. ASSESSMENT AND PLAN: Respiratory failure, presumed aspiration, renal failure on dialysis. Continue PT, supportive care. Alpha Strep sepsis, presently on vancomycin, which could be discontinued . We will follow. Job ID: [id number]
[2019-05-30] MEDS ORDERED: Tuberculin PPD 0.1 ML VIAL I-DERMAL SCH (09:30)
[2019-05-30] MEDS ORDERED: PROPOFOL 200 MG/20 ML VIAL ONE (09:30)
--- NOTE | 2019-05-30 09:46 | PRG ---
DATE OF SERVICE: 05/30/2019 SUBJECTIVE: Ms. Mike Talley is a 64-year-old female, who was seen by the Renal Service for her acute kidney injury on top of her chronic renal failure. She had a superimposed acute tubular necrosis. She is currently on maintenance hemodialysis. I do not see any recovery for renal function the present time. No new complaints. A planned cuffed hemodialysis catheter has been scheduled by Dr. Vasquez. OBJECTIVE: VITAL SIGNS: Blood pressure 155/61, heart rate 70, respiratory rate 20, temperature 98, pulse ox 91%. GENERAL: The patient is awake, supine, comfortable, not in overt distress. SKIN: Adequate turgor. HEENT: She has a slightly pale conjunctivae. Anicteric sclerae. No neck mass. No carotid bruits. No JVD. CHEST: No deformities. LUNGS: Clear breath sounds. No wheezing. No crackles. HEART: Normal sinus rhythm. No murmur. No gallops. No rubs. ABDOMEN: Globular, soft, nontender. No masses. EXTREMITIES: No edema. No deformities. MEDICATIONS: Medications of May 30, 2019, reviewed. LABORATORY DATA: Laboratories of May 30, 2019, white count 25.1, hemoglobin 8.5, sodium 136, potassium 4.5, chloride 98, carbon dioxide 29, BUN 45, creatinine 3.2, glucose 162, calcium 7.8, magnesium 2.2. ASSESSMENT AND PLAN: 1. Acute kidney injury secondary to acute tubular necrosis. Continue supportive hemodialysis. Continue [id number]-week hemodialysis with fluid removal. 2. Acute respiratory failure, clinically improved with fluid removal as well as empiric treatment with IV antibiotics for underlying possible pneumonia. 3. Borderline anemia. We will continue to observe p.r.n. blood transfusion. 4. We will consult for outpatient hemodialysis. 5. Overall agree with current management. Recheck basic metabolic panel and CBC in a.m. Job ID: [id number]
[2019-05-30] MEDS: Cefdinir 300 MG CAP PO SCH (10:17)
--- NOTE | 2019-05-30 11:13 | PDOC.HOSPP ---
- Subjective Subjective: Clinically continues to improve daily with reguard to pulmonary function. Moving more and eating more. Remains HD dependent, getting HD cath. Family at bedside, time was given for questions, all answered in detail. - Objective Vital Signs & Weight: Vital Signs (12 hours) Temp Pulse Resp BP Pulse Ox 05/30/19 08:40 91 L 05/30/19 08:23 98.0 F 70 20 155/61 H 91 L 05/30/19 06:59 80 16 94 L Weight Weight 146 lb 8 oz Most Recent Monitor Data Heart Rate from ECG 74 NIBP 144/58 NIBP BP-Mean 86 Respiration from ECG 13 SpO2 96 I&O: 05/29/19 05/30/19 05/31/19 06:59 06:59 06:59 Intake Total 1190 510 Output Total 0 2000 Balance 1190 -1490 Result Diagrams: 05/30/19 04:35 05/30/19 04:35 Additional Labs: Accuchecks 05/30/19 05/29/19 05/29/19 05:07 19:11 17:16 POC Glucose 176 H 392 H 325 H 05/29/19 14:07 POC Glucose 124 H Radiology Reviewed by me: Yes Hospitalist ROS - Review of Systems All other systems reviewed; all pertinent +/- noted in HPI/Subj - Medication Medications: Active Medications Generic Name Dose Route Start Last Admin Trade Name Freq PRN Reason Stop Dose Admin Acetaminophen 1,000 mg 05/19/19 04:06 05/26/19 20:23 Tylenol PO 1,000 mg Q6H PRN Administration Mild Pain (1-3) Acetaminophen 650 mg 05/26/19 03:53 05/27/19 12:18 Tylenol [place] 650 mg Q6H PRN Administration Headache/Fever or Pain Albuterol/Ipratropium 3 ml 05/20/19 13:00 05/30/19 06:59 Duoneb NEB 3 ml [id number] LENNY Administration Aspirin 81 mg 05/19/19 09:00 05/30/19 08:42 Aspirin Chewable PO 81 mg DAILY LENNY Administration Carvedilol 25 mg 05/23/19 08:00 05/30/19 05:54 Coreg PO 25 mg BID-WM LENNY Administration Cefdinir 300 mg 05/30/19 09:00 05/30/19 10:17 Omnicef PO 06/03/19 09:01 300 mg DAILY LENNY Administration Docusate Sodium 100 mg 05/28/19 21:00 05/30/19 08:41 Colace PO Not Given BID [facility] Heparin Sodium (Porcine) 500 units 05/25/19 04:25 05/30/19 04:35 Heparin Lock Flush 100 Units/Ml IVF 500 unit PRN PRN Administration Heparin Flush Hydralazine HCl 50 mg 05/19/19 09:00 05/30/19 08:41 Apresoline PO 50 mg TID LENNY Administration Insulin Glargine 23 units/ 0.23 mls @ 0 mls/hr 05/29/19 21:00 05/30/19 08:42 Miscellaneous Medication SC Not Given BID LENNY Insulin Human Lispro 0 units 05/19/19 04:06 05/29/19 21:15 Humalog SC 5 unit .BEDTIME SLIDING SC PRN Administration Bedtime Correctional Scale Insulin Human Lispro 0 units 05/27/19 09:03 05/29/19 17:55 Humalog SC 11 unit .AGGRESSIVE SLIDING PRN Administration Aggressive Correctional Scale Pantoprazole Sodium 40 mg 05/27/19 09:00 05/30/19 08:41 Protonix PO 40 mg DAILY LENNY Administration Prednisone 10 mg 05/30/19 08:00 05/30/19 08:42 Prednisone PO 06/02/19 08:01 10 mg QAM-WM LENNY Administration Sevelamer Carbonate 800 mg 05/28/19 12:00 05/30/19 08:41 Renvela PO Not Given TID-[facility] Zolpidem Tartrate 5 mg 05/22/19 14:15 05/23/19 00:32 Ambien PO 5 mg HSPRN PRN Administration Insomnia - Exam General Appearance: NAD, awake alert Eye: anicteric sclera ENT: normocephalic atraumatic, moist mucosa Neck: symmetric, no lymphadenopathy Heart: no murmur, no gallops, no rubs Respiratory: no rales, rhonchi, wheezes (Continue to improve and clear) Gastrointestinal: soft, non-tender, no guarding, no rigidity Extremities: 1+ LE edema Skin: no lesions, no rashes Neurological: cranial nerve grossly intact, no focal deficits Musculoskeletal: generalized weakness Psychiatric: normal affect, A&O x 3 Hosp A/P (1) YESY (acute kidney injury) Code(s): N17.9 - ACUTE KIDNEY FAILURE, UNSPECIFIED Status: Acute (2) Acute on chronic diastolic (congestive) heart failure Code(s): I50.33 - ACUTE ON CHRONIC DIASTOLIC (CONGESTIVE) HEART FAILURE Status : Acute (3) Acute respiratory failure with hypoxia Code(s): J96.01 - ACUTE RESPIRATORY FAILURE WITH HYPOXIA Status: Resolved (4) Bilateral pulmonary infiltrates on CXR Code(s): R91.8 - OTHER NONSPECIFIC ABNORMAL FINDING OF LUNG FIELD Status: Acute (5) Diabetes mellitus Code(s): E11.9 - TYPE 2 DIABETES MELLITUS WITHOUT COMPLICATIONS Status: Acute (6) Elevated troponin Code(s): R79.89 - OTHER SPECIFIED ABNORMAL FINDINGS OF BLOOD CHEMISTRY Status : Acute (7) Heart murmur Code(s): R01.1 - CARDIAC MURMUR, UNSPECIFIED Status: Acute (8) Multifocal pneumonia Code(s): J18.9 - PNEUMONIA, UNSPECIFIED ORGANISM Status: Acute (9) Pulmonary HTN Code(s): I27.20 - PULMONARY HYPERTENSION, UNSPECIFIED Status: Acute (10) CHF exacerbation Code(s): I50.9 - HEART FAILURE, UNSPECIFIED Status: Acute - Plan Plan: Medical unit General surgery consultation, recommendations appreciated pulmonary/critical-care consultation, recommendations appreciated nephrology consultation, recommendations are patient 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 prophylaxis DVT prophylaxis disposition: Improving on maximum medical therapy. prognosis guarded
[2019-05-30 12:06] VITALS: BMI 25.9
[2019-05-30] MEDS ORDERED: Sodium Chloride 0.9% 10 ML ONE (15:21)
[2019-05-30] MEDS ORDERED: Bupivacaine PF 0.5% 30 ML VIAL ONE (15:21)
[2019-05-30] MEDS ORDERED: Heparin 10,000 UNITS/1 ML VIAL ONE (15:21)
[2019-05-30] MEDS ORDERED: Lidocaine 2% w/Epinephrine 1:200K 20 ML VIAL ONE (15:21)
[2019-05-30] MEDS ORDERED: Lidocaine 1% w/Epinephrine 1:100K 20 ML VIAL ONE (15:23)
[2019-05-30] MEDS ORDERED: Midazolam HCl 2 mg/2 ml Vial ONE (15:37)
[2019-05-30] MEDS ORDERED: Fentanyl 100 MCG/2 ML VIAL ONE (15:37)
[2019-05-30] MEDS ORDERED: Ondansetron HCl/PF 4 MG/2 ML Vial IVP PRN (16:22)
[2019-05-30] MEDS ORDERED: Promethazine HCl 25 MG/ML VIAL SLOW IVP PRN (16:22)
[2019-05-30] MEDS ORDERED: Promethazine HCl 25 MG/ML VIAL IM PRN (16:22)
--- NOTE | 2019-05-30 16:29 | OP ---
DATE OF PROCEDURE: 05/30/2019 PREOPERATIVE DIAGNOSES: 1. Acute renal failure in need of cuffed-tunneled dialysis catheter. 2. Poor IV access. POSTOPERATIVE DIAGNOSES: 1. Acute renal failure in need of cuffed-tunneled dialysis catheter. 2. Poor IV access. PROCEDURES PERFORMED: 1. Right IJ cuffed tunneled hemodialysis catheter. 2. AngioDynamics, pre-curved, left IJ triple-lumen catheter. 3. Ultrasound and fluoroscopy used. ANESTHESIA: Intravenous sedation and local with 0.5% Marcaine 30 mL mixed with 1% Xylocaine with epinephrine 20 mL. DESCRIPTION OF PROCEDURE: The patient was taken to the operating room, where under intravenous sedation in the supine position, neck and chest were prepared with ChloraPrep and draped in routine fashion. Ultrasound was used to cannulate the right and left internal jugular veins. J-wire was threaded. Trocar catheter removed. Skin site was enlarged sharply on both sides. Stab incision was made in the right chest. Using Seldinger technique, a triple-lumen catheter placed in the left internal jugular vein and secured with 3-0 nylon suture. Each port aspirated blood, flushed with saline solution. Sterile dressing applied. On the right side, the tunneling device was used to place AngioDynamics pre-curved hemodialysis catheter with the fabric cuff beneath the skin exit site over the chest. Catheter secured with 2 interrupted sutures of 3-0 nylon. Small and medium size dilators placed. Dilator and Peel-Away sheath placed into the superior vena cava. Dilator and J-wire removed. Catheter was placed with the Peel-Away sheath. Peel-Away sheath was removed. Platysma was approximated with 4-0 Monocryl, skin with subdermal 4-0 Monocryl and [place] glue and sterile dressings applied. Each port aspirated blood, flushed with saline solution and heparinized saline solution with 1000 units of heparin per mL, indicating the volume of the port. Final fluoroscopic images revealed good line placement. Job ID: [id number]
--- NOTE | 2019-05-30 16:39 | RAD ---
Chest one view HISTORY: Central line placement. COMPARISON: Earlier exam on the same date. FINDINGS: Cardiac silhouette is magnified by projection. Pulmonary vasculature remains engorged. Medi astinum is midline with aortic calcification. Tip of a large caliber right internal jugular dual-lumen dialysis type catheter projects over the cav oatrial junction. Tip of a left internal jugular central venous catheter projects over the right atrium. No evidence of pneumothorax. IMPRESSION: New bilateral internal jugular central venous catheters, in good radiographic position.
[2019-05-30] MEDS: HumaLOG 300 UNITS/3 ML VIAL SC PRN (21:06)
[2019-05-31 05:30] LABS: #Lymphocytes 1.8 thou/uL (1.20-3.40); #Monocytes 2.4 thou/uL (0.11-0.59); %Basophils 0.1 % (0.0-1.0); %Eosinophils 0.2 % (0.0-10.0); %Lymphocytes 7.4 % (21.0-51.0); %Monocytes 9.9 % (0.0-10.0); %Neutrophils 82.5 % (42.0-75.0); Hemoglobin 8.4 g/dL (12.0-16.0); Mean Corpuscular HGB CONC 33.7 g/dL (32.0-36.0); Mean Corpuscular Volume 91.9 fL (78.0-98.0); Mean Platelet Volume 8.7 fL (7.4-10.4); Platelet Count 156 thou/uL (130-400); Red Blood Cell (RBC) Count 2.71 mill/uL (4.20-5.40); White Blood Cell (WBC) Count 24.3 thou/uL (4.8-10.8)
[2019-05-31 06:41] LABS: Anion Gap 17 mmol/L (10-20); BUN (Urea Nitrogen) 76 mg/dL (9.8-20.1); Calc. Creatinine Clearance 11 mL/min (70-130); Calcium 7.8 mg/dL (7.8-10.44); Carbon Dioxide 27 mmol/L (23-31); Chloride 97 mmol/L (98-107); Estimated GFR-MDRD 8; Glucose 100 mg/dL (80-115); Magnesium 2.5 mg/dL (1.6-2.6); Potassium 4.7 mmol/L (3.5-5.1); Sodium 136 mmol/L (136-145)
[2019-05-31 06:46] LABS: Phosphorus 6.3 mg/dL (2.3-4.7)
[2019-05-31] MEDS: Insulin Glargine 23 UNITS in Pre-Filled Syringe 1 EACH SC SCH ×2 (08:30→20:39)
[2019-05-31] MEDS: Cefdinir 300 MG CAP PO SCH (08:31)
[2019-05-31] MEDS: Sevelamer Carbonate 800 MG TAB PO SCH ×3 (08:31→18:16)
[2019-05-31] MEDS: hydrALAZINE 25 MG TAB PO SCH ×3 (08:31→20:39)
[2019-05-31] MEDS: Docusate 100 MG CAP PO SCH ×2 (08:32→20:39)
[2019-05-31] MEDS: Aspirin Chewable 81 MG TAB PO SCH (08:32)
[2019-05-31] MEDS: Carvedilol 25 MG TAB PO SCH ×2 (08:32→18:16)
[2019-05-31] MEDS: predniSONE 5 MG TAB PO SCH (08:32)
--- NOTE | 2019-05-31 08:32 | RAD ---
Exam: Chest one view HISTORY:Pneumonia. Comparison: 05/30/2019 FINDINGS: Lines and tubes: Stable HemoSplit dialysis catheter and left-sided jugular venous catheter. Cardiac silhouette: Normal Aorta: Atherosclerosis Pulmonary vessels: Normal Costophrenic angles: Small bilateral effusions may be present LUNGS: Persistent patchy interstitial opacities of the lung parenchyma. Pneumothorax: None Osseous abnormalities: None IMPRESSION: No significant interval change.
[2019-05-31] MEDS: Acetaminophen 500 MG TAB PO PRN (08:55)
[2019-05-31 09:21] LABS: Vancomycin, Random 6.5 ug/mL (See Comment)
--- NOTE | 2019-05-31 09:21 | PRG ---
DATE OF SERVICE: 05/31/2019 SUBJECTIVE: Ms. Mike Talley is a 64-year-old female, seen by the Renal Service for her acute kidney injury secondary to acute tubular necrosis. I do not see any recovery of the renal function yet. She will continue her three times a week hemodialysis. This morning, she voices no new complaints. No chest pain or shortness of breath. OBJECTIVE: VITAL SIGNS: Blood pressure 158/69, heart rate 65, respiratory rate 20, temperature 97.8, and pulse ox 95%. GENERAL: Noted to be awake, alert, and comfortable, not in distress. SKIN: Adequate turgor. HEENT: Pinkish conjunctivae. Anicteric sclerae. NECK: No neck mass. No carotid bruits. No JVD. CHEST: No deformities. LUNGS: Clear breath sounds. HEART: Normal sinus rhythm. No murmur. No gallops. No rubs. ABDOMEN: Globular, soft, and nontender. No masses. EXTREMITIES: No edema. No deformities. MEDICATIONS: Medications of May 31, 2019 were reviewed. LABORATORY DATA: Laboratories of May 31, 2019; white count 24.3, hemoglobin 8.4, sodium 136, potassium 4.7, chloride 97, carbon dioxide 27, BUN 76, creatinine 5.22, glucose 100, calcium 7.8, phosphorus 6.3, and magnesium 2.5. ASSESSMENT AND PLAN: 1. Chronic renal failure/acute kidney injury-superimposed acute tubular necrosis. Continuing hemodialysis regimen three times a week. No evidence of renal recovery. 2. Hyperphosphatemia-the patient is currently on Renvela 800 mg one tablet t.i.d. with meals. 3. Anemia. Continue supportive care, p.r.n. blood transfusion. 4. Acute respiratory failure, improving. Also been treated for pneumonia. Agree with current management. Job ID: [id number]
--- NOTE | 2019-05-31 09:36 | PRG ---
DATE OF SERVICE: 05/31/2019 SUBJECTIVE: She is better this morning, in no distress. OBJECTIVE: VITAL SIGNS: Temperature 97, blood pressure 158/69, pulse 65, saturation 100% on 2 L. CHEST: No wheezing or crackles. CARDIAC: Normal S1 and S2. No gallops. ABDOMEN: No masses. LABORATORY DATA: White count is elevated still 24,000, but a chest x-ray shows no infiltrate. There is a dialysis catheter in place. Creatinine is 5.2. ASSESSMENT: Chronic renal failure, respiratory failure, severe deconditioning, and sepsis. PLAN: P.o. antibiotics. Supportive care. PT. DISPOSITION: As per primary care physician. Job ID: [id number]
[2019-05-31] MEDS ORDERED: Heparin 10,000 UNITS/ 10 ML VIAL ONE (11:21)
--- NOTE | 2019-05-31 11:59 | PDOC.HOSPP ---
- Subjective Subjective: Patient continues to improve on maximal medical therapy. Tolerating hemodialysis. HD catheter in position. No new complaints or issues today. Will benefit from inpatient rehabilitation, case management has been consulted. - Objective Vital Signs & Weight: Vital Signs (12 hours) Temp Pulse Resp BP BP Pulse Ox 05/31/19 08:31 65 158/69 H 05/31/19 07:19 97.8 F 65 20 158/69 H 95 05/31/19 06:40 73 16 95 05/31/19 05:08 98.0 F 73 18 155/63 H 95 05/31/19 00:30 76 16 95 Weight Admit Weight 142 lb Weight 146 lb 8 oz Most Recent Monitor Data Heart Rate from ECG 74 NIBP 144/58 NIBP BP-Mean 86 Respiration from ECG 13 SpO2 96 I&O: 05/30/19 05/31/19 06/01/19 06:59 06:59 06:59 Intake Total 510 800 Output Total 2000 10 Balance -1490 790 Result Diagrams: 05/31/19 05:15 05/31/19 05:15 Additional Labs: Accuchecks 05/31/19 05/30/19 05/30/19 05:05 20:36 17:17 POC Glucose 110 306 H 155 H 05/30/19 12:02 POC Glucose 127 H Radiology Reviewed by me: Yes Hospitalist ROS - Review of Systems All other systems reviewed; all pertinent +/- noted in HPI/Subj - Medication Medications: Active Medications Generic Name Dose Route Start Last Admin Trade Name Freq PRN Reason Stop Dose Admin Acetaminophen 1,000 mg 05/19/19 04:06 05/31/19 08:55 Tylenol PO 1,000 mg Q6H PRN Administration Mild Pain (1-3) Acetaminophen 650 mg 05/26/19 03:53 05/27/19 12:18 Tylenol WA 650 mg Q6H PRN Administration Headache/Fever or Pain Albuterol/Ipratropium 3 ml 05/20/19 13:00 05/31/19 06:40 Duoneb NEB 3 ml [id number] LENNY Administration Aspirin 81 mg 05/19/19 09:00 05/31/19 08:32 Aspirin Chewable PO 81 mg DAILY LENNY Administration Carvedilol 25 mg 05/23/19 08:00 05/31/19 08:32 Coreg PO 25 mg BID-WM LENNY Administration Cefdinir 300 mg 05/30/19 09:00 05/31/19 08:31 Omnicef PO 06/03/19 09:01 300 mg DAILY LENNY Administration Docusate Sodium 100 mg 05/28/19 21:00 05/31/19 08:32 Colace PO 100 mg BID LENNY Administration Heparin Sodium (Porcine) 500 units 05/25/19 04:25 05/30/19 04:35 Heparin Lock Flush 100 Units/Ml IVF 500 unit PRN PRN Administration Heparin Flush Hydralazine HCl 50 mg 05/19/19 09:00 05/31/19 08:31 Apresoline PO Not Given TID [facility] Insulin Glargine 23 units/ 0.23 mls @ 0 mls/hr 05/29/19 21:00 05/31/19 08:30 Miscellaneous Medication SC 0.23 mls BID LENNY Administration Insulin Human Lispro 0 units 05/19/19 04:06 05/30/19 21:06 Humalog SC 4 unit .BEDTIME SLIDING SC PRN Administration Bedtime Correctional Scale Insulin Human Lispro 0 units 05/27/19 09:03 05/29/19 17:55 Humalog SC 11 unit .AGGRESSIVE SLIDING PRN Administration Aggressive Correctional Scale Pantoprazole Sodium 40 mg 05/27/19 09:00 05/31/19 08:32 Protonix PO 40 mg DAILY [facility] Administration Prednisone 10 mg 05/30/19 08:00 05/31/19 08:32 Prednisone PO 06/02/19 08:01 10 mg [facility] Administration Sevelamer Carbonate 800 mg 05/28/19 12:00 05/31/19 11:32 Renvela PO Not Given [facility] Zolpidem Tartrate 5 mg 05/22/19 14:15 05/23/19 00:32 Ambien PO 5 mg HSPRN PRN Administration Insomnia - Exam General Appearance: NAD, awake alert Eye: anicteric sclera ENT: normocephalic atraumatic, moist mucosa Neck: supple, symmetric, no JVD Heart: no murmur, no gallops, no rubs Respiratory: CTAB, no wheezes, no rales, no ronchi Gastrointestinal: soft, non-tender, no guarding, no rigidity Extremities: 1+ LE edema Skin: no lesions, no rashes Neurological: cranial nerve grossly intact, normal sensation to touch, no focal deficits Musculoskeletal: generalized weakness Psychiatric: A&O x 3, flat affect Hosp A/P (1) YESY (acute kidney injury) Code(s): N17.9 - ACUTE KIDNEY FAILURE, UNSPECIFIED Status: Acute (2) Acute on chronic diastolic (congestive) heart failure Code(s): I50.33 - ACUTE ON CHRONIC DIASTOLIC (CONGESTIVE) HEART FAILURE Status : Acute (3) Acute respiratory failure with hypoxia Code(s): J96.01 - ACUTE RESPIRATORY FAILURE WITH HYPOXIA Status: Resolved (4) Bilateral pulmonary infiltrates on CXR Code(s): R91.8 - OTHER NONSPECIFIC ABNORMAL FINDING OF LUNG FIELD Status: Acute (5) Diabetes mellitus Code(s): E11.9 - TYPE 2 DIABETES MELLITUS WITHOUT COMPLICATIONS Status: Acute (6) Elevated troponin Code(s): R79.89 - OTHER SPECIFIED ABNORMAL FINDINGS OF BLOOD CHEMISTRY Status : Acute (7) Heart murmur Code(s): R01.1 - CARDIAC MURMUR, UNSPECIFIED Status: Acute (8) Multifocal pneumonia Code(s): J18.9 - PNEUMONIA, UNSPECIFIED ORGANISM Status: Acute (9) Pulmonary HTN Code(s): I27.20 - PULMONARY HYPERTENSION, UNSPECIFIED Status: Acute (10) CHF exacerbation Code(s): I50.9 - HEART FAILURE, UNSPECIFIED Status: Acute - Plan Plan: Medical unit General surgery consultation, recommendations appreciated pulmonary/critical-care consultation, recommendations appreciated nephrology consultation, recommendations are patient HD assessed for senior care HD requirements by surgery on low flow NC to maintain O2 saturation greater than 88% PT/OT eval and treat mobilize the patient and regain her physical strength 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 prophylaxis DVT prophylaxis disposition: Improving on maximum medical therapy. Stable for lower level of care.
[2019-05-31] MEDS: HumaLOG 300 UNITS/3 ML VIAL SC PRN (20:40)
[2019-06-01 06:33] LABS: Anion Gap 11 mmol/L (10-20); BUN (Urea Nitrogen) 35 mg/dL (9.8-20.1); Calc. Creatinine Clearance 18 mL/min (70-130); Calcium 7.6 mg/dL (7.8-10.44); Carbon Dioxide 30 mmol/L (23-31); Chloride 97 mmol/L (98-107); Estimated GFR-MDRD 14; Glucose 133 mg/dL (80-115); Potassium 4.1 mmol/L (3.5-5.1); Sodium 134 mmol/L (136-145)
[2019-06-01] MEDS ORDERED: Insulin Glargine 18 UNITS in Pre-Filled Syringe 1 EACH SC SCH (09:00)
--- NOTE | 2019-06-01 09:16 | PRG ---
DATE OF SERVICE: 06/01/2019 SUBJECTIVE: Ms. Mike Talley is a 64-year-old female, who was seen by the Renal Service for her acute kidney injury on top of her chronic renal failure. She had a superimposed acute tubular necrosis. Due to the progressive nature of renal dysfunction and volume overload, she was initiated on dialysis. She is currently now maintained on three times a week hemodialysis. She did undergo hemodialysis yesterday and tolerated said treatment. She is also being treated for presumed pneumonia. No other complaints today. OBJECTIVE: VITAL SIGNS: Blood pressure is 135/66, heart rate 74, respiratory rate 20, temperature 98.1, and pulse ox 97%. GENERAL: Awake, alert, and comfortable, not in overt distress. SKIN: Adequate turgor. HEENT: Pinkish conjunctivae. Anicteric sclerae. NECK: No neck mass. No carotid bruits. No JVD. CHEST: No deformities. LUNGS: Decreased breath sounds. HEART: Normal sinus rhythm. No murmurs, gallops, or rubs. ABDOMEN: Globular, soft, and nontender. EXTREMITIES: No edema. No deformities. MEDICATIONS: Medications of June 01, 2019 were reviewed. LABORATORY DATA: Laboratories of May 31, 2019; white count 24.2, hemoglobin 24.3. June 01, 2019; sodium 134, potassium 4.1, chloride 97, carbon dioxide 30, BUN 35, creatinine 3.22, glucose 133, and calcium 7.6. ASSESSMENT AND PLAN: 1. Acute kidney injury secondary to acute tubular necrosis. No evidence of renal recovery. Continuing dialytic intervention. We will maintain her at three times a week hemodialysis with fluid removal only as tolerated. 2. Anemia. Continue to observe. 3. Hyperphosphatemia. The patient is currently on Renvela 800 mg p.o. t.i.d. with meals. 4. We will recheck basic metabolic panel and CBC again tomorrow. Continue supportive care. We are awaiting rehab placement. Job ID: [id number]
[2019-06-01] MEDS: Sevelamer Carbonate 800 MG TAB PO SCH ×3 (09:46→15:56)
[2019-06-01] MEDS: hydrALAZINE 25 MG TAB PO SCH ×2 (09:46→15:50)
[2019-06-01] MEDS: predniSONE 5 MG TAB PO SCH (09:46)
[2019-06-01] MEDS: Docusate 100 MG CAP PO SCH (09:47)
[2019-06-01] MEDS: Carvedilol 25 MG TAB PO SCH ×2 (09:47→15:53)
[2019-06-01] MEDS: Cefdinir 300 MG CAP PO SCH (09:47)
[2019-06-01] MEDS: Aspirin Chewable 81 MG TAB PO SCH (09:47)
[2019-06-01] MEDS: Insulin Glargine 23 UNITS in Pre-Filled Syringe 1 EACH SC SCH (09:48)
--- NOTE | 2019-06-01 10:30 | PRG ---
DATE OF SERVICE: 06/01/2019 SUBJECTIVE: This morning, the patient is awake, sitting on the side of the bed. OBJECTIVE: VITAL SIGNS: Temperature 98, pulse 74, blood pressure 135/66, saturations . CHEST: No wheezing or crackles. CARDIAC: Normal S1 and S2. No gallops. ABDOMEN: No mass. LABORATORY DATA: Creatinine 3.2. ASSESSMENT AND PLAN: Respiratory failure, renal failure, pneumonia, sepsis, much improved. Pulmonary anthony, placement. Pulmonary is going to follow at a distance, please call if needed. Job ID: [id number]
[2019-06-01] MEDS: HumaLOG 300 UNITS/3 ML VIAL SC PRN (17:30)
[2019-06-01 19:15] VITALS: BP 102/84; TEMP 98.6
--- NOTE | 2019-06-01 20:44 | DIS ---
DATE OF ADMISSION: 05/19/2019 DATE OF DISCHARGE: 06/01/2019 REASON FOR HOSPITALIZATION: Sepsis, pneumonia, and acute renal failure resulting in hemodialysis requirement. PROCEDURES PERFORMED AND TREATMENTS RENDERED: The patient was admitted to the intensive care unit for close management on 05/19/2019-please see full history and physical and progress notes from Internal Medicine for details. The patient was admitted for shortness of breath and diagnosed with pneumonia. The patient had pulmonary specific antibiotics, steroids, breathing treatments, and all appropriate medical therapy titrated appropriately by Pulmonology/Critical Care, Dr. Campos-please see full consultation notes and progress notes for details. The patient was also seen and evaluated by Cardiology, Dr. Gómez-please see full consultation notes and progress notes for details. The patient with congestive heart failure with diastolic dysfunction requiring diuretic therapy-this was adjusted appropriately in addition to cardiomyopathy regimen and blood pressure regimen by Cardiology. The patient with renal insufficiency, was seen and evaluated by Nephrology on 05/21/2019-please see full consultation notes and progress notes from Dr. Pisano with Nephrology for full details. Unfortunately, the patient's renal function did not improve and she required hemodialysis. Dialysis continued to be required throughout her hospitalization and her renal function never recovered. The patient had hemodialysis access catheter placed by Dr. Vasquez on 05/22/2019-please see full operative report for details. The patient continued to improve after that time and she was eventually weaned on her oxygen requirements and antibiotics and transitioned to oral antibiotics and steroids. The patient continued to improve daily and her mobility improved with the help of physical therapy and occupational therapy. Dr. Vasquez placed a second hemodialysis access catheter on 05/30/2019-please see full operative report for details. After hemodialysis catheter was placed, the patient was recommended safe for discharge to rehabilitation facility. The patient was recommended safe for discharge by all specialists on 06/01/2019. The patient was transferred to inpatient rehabilitation facility and recommended to continue all medications, to be adjusted by admitting physician at rehabilitation facility and titrated as appropriate. CONDITION ON DISCHARGE: Stable. SPECIFIC INSTRUCTIONS FOR THE PATIENT/FAMILY: 1. The patient is recommended to take all medications as directed, to be re-evaluated by primary care physician, admitting physician at rehab facility, Cardiology, Nephrology, and Pulmonology in the upcoming weeks. 2. The patient is recommended to follow up with primary care physician in 5-7 days after discharge from rehabilitation facility. 3. The patient is recommended to have hemodialysis continued in the acute rehab setting under the direction of Nephrology. 4. The patient is recommended to follow up with Pulmonology in the next 1 to 2 weeks. 5. The patient is recommended to follow up with Cardiology in the next 1 to 2 weeks. 6. The patient is recommended to return to acute care hospital immediately if signs or symptoms return, worsen, or any other new symptoms occur. DISCHARGE MEDICATIONS: Please see full discharge medication list for details. 1. Medrol Dosepak-use as directed. 2. Cefdinir 300 mg p.o. daily for an additional two days with a stop date of 06/03/2019. 3. Tylenol 1000 mg p.o. q.6 hours p.r.n. pain or fever. 4. Aspirin 81 mg one tablet p.o. daily. 5. Carvedilol 25 mg one tablet p.o. b.i.d. 6. Glucagon p.r.n. hypoglycemia. 7. Docusate 100 mg p.o. b.i.d. p.r.n. constipation. 8. Insulin sliding scale coverage-aggressive a.c. and at bedtime. 9. Hydralazine 50 mg p.o. t.i.d. 10. Ipratropium bromide/albuterol nebulizer solution inhaled q.4 hours p.r.n. shortness of breath or wheezing. 11. Melatonin 3 mg p.o. at bedtime p.r.n. insomnia. 12. Zofran 4 mg p.o. q.6 hours p.r.n. nausea or vomiting. 13. Protonix 40 mg one tablet p.o. q.a.m. 14. MiraLAX 17 g p.o. daily p.r.n. constipation. 15. Sevelamer carbonate 800 mg p.o. t.i.d. with meals. 16. Fleet enema per rectum daily p.r.n. severe constipation. 17. Insulin glargine 18 units subcutaneous injection b.i.d. 18. Rosuvastatin 20 mg p.o. at bedtime. TIME SPENT: Greater than 40 minutes spent coordinating care and discharge process for this patient. Job ID: [id number]
== END 2019-06-01 19:36 | DRG 871 ==
LOC: ERS 22:44 → IMCU/EMU 05-19 01:38 → T4-A 05-19 13:15 → IMCU/EMU 05-19 16:16 → T4-A 05-27 18:42
PROVIDERS: ADMIT Family Medicine; ATTEND Family Medicine
PROC: 5A09557 Assistance with Respiratory Ventilation, Greater than 96 Consecutive Hours, Continuous Positive Airway Pressure (ICD-10-PCS; 2019-05-18)
PROC: 06HM33Z Insertion of Infusion Device into Right Femoral Vein, Percutaneous Approach (ICD-10-PCS; principal; 2019-05-19)
PROC: 5A1D70Z Performance of Urinary Filtration, Intermittent, Less than 6 Hours Per Day (ICD-10-PCS; 2019-05-22)
PROC: 0JH63XZ Insertion of Tunneled Vascular Access Device into Chest Subcutaneous Tissue and Fascia, Percutaneous Approach (ICD-10-PCS; 2019-05-30)
PROC: 02HV33Z Insertion of Infusion Device into Superior Vena Cava, Percutaneous Approach (ICD-10-PCS; 2019-05-30)
PROC: B5181ZA Fluoroscopy of Superior Vena Cava using Low Osmolar Contrast, Guidance (ICD-10-PCS; 2019-05-30)
PROC: B548ZZA Ultrasonography of Superior Vena Cava, Guidance (ICD-10-PCS; 2019-05-30)
DX: A40.0 Sepsis due to streptococcus, group A (principal); J18.9 Pneumonia, unspecified organism; I50.33 Acute on chronic diastolic (congestive) heart failure; N17.0 Acute kidney failure with tubular necrosis; J96.01 Acute respiratory failure with hypoxia; J96.02 Acute respiratory failure with hypercapnia; J44.0 Chronic obstructive pulmonary disease with (acute) lower respiratory infection; J44.1 Chronic obstructive pulmonary disease with (acute) exacerbation; I13.0 Hypertensive heart and chronic kidney disease with heart failure and stage 1 through stage 4 chronic kidney disease, or unspecified chronic kidney disease; E87.1 Hypo-osmolality and hyponatremia; I42.9 Cardiomyopathy, unspecified; E78.5 Hyperlipidemia, unspecified; Y95 Nosocomial condition; R79.89 Other specified abnormal findings of blood chemistry; I25.10 Atherosclerotic heart disease of native coronary artery without angina pectoris; E78.00 Pure hypercholesterolemia, unspecified; I27.20 Pulmonary hypertension, unspecified; E11.22 Type 2 diabetes mellitus with diabetic chronic kidney disease; N18.9 Chronic kidney disease, unspecified; T50.2X5A Adverse effect of carbonic-anhydrase inhibitors, benzothiadiazides and other diuretics, initial encounter; E66.9 Obesity, unspecified; I08.1 Rheumatic disorders of both mitral and tricuspid valves; E87.5 Hyperkalemia; E83.39 Other disorders of phosphorus metabolism; D63.1 Anemia in chronic kidney disease; Z87.01 Personal history of pneumonia (recurrent); Z79.84 Long term (current) use of oral hypoglycemic drugs; Z79.82 Long term (current) use of aspirin; Z79.899 Other long term (current) drug therapy; Z68.26 Body mass index [BMI] 26.0-26.9, adult
CPT/HCPCS: 36415; 36416; 71045; 80048; 80053; 80202; 81001; 82550; 82553; 82570; 82805; 83516; 83520; 83605; 83735; 83880; 84100; 84145; 84156; 84300; 84484; 84540; 85007; 85025; 85027; 86038; 86140; 86160; 86200; 86225; 86256; 86376; 86580; 87040; 87149; 87340; 90935; 93005; 93306; 93798; 93970; 94640; 94660; 96365; 96375; 99292; C1752; C1769; G0257; G0365; J0692; J1642; J1644; J1815; J1940; J1956; J2248; J2250; J2704; J2920; J3010; J3370; J3490; J7050; J7512; J7620; S0020; S0028